=== PATIENT | female | born 1970 | race Two or more races ===

== ENCOUNTER 2020-03-07 11:30 | Emergency (ER) | payer BC, MEDICARE, MEDICAID, SELFPAY ==
[2020-03-07 12:01] VITALS: BP 114/81; PULSE 71; RESP 15; TEMP 36.8; O2SAT 98; BMI 41.3
--- NOTE | 2020-03-07 12:11 | ECG_ITS ---
Test Reason : CP Blood Pressure : / mmHG Vent. Rate : 061 BPM Atrial Rate : 061 BPM P-R Int : 112 ms QRS Dur : 084 ms QT Int : 392 ms P-R-T Axes : 015 008 009 degrees QTc Int : 394 ms Normal sinus rhythm Minimal voltage criteria for LVH, may be normal variant Borderline ECG No previous ECGs available Referred By: Chiquita Delarosa Electronically Signed By:ERIN CERVANTES
--- NOTE | 2020-03-07 12:23 | XR_ITS ---
EXAMINATION: XR CHEST CLINICAL INFORMATION: Chest pain. COMPARISON: Chest done on 10/04/2013. TECHNIQUE: 2 views of the chest were obtained. FINDINGS: No significant abnormality is noted involving the heart, lungs, mediastinum, bony thorax or soft tissues. XR/XR chest 2V IMPRESSION: Unremarkable examination.
--- NOTE | 2020-03-07 12:32 | ED.CHESTPAIN ---
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 The patient although she was driving and started to feel some chest discomfort which was associated with shortness of breath and anxiety. She has had constant pain since. No other additional symptoms. She tells me she has been compliant with her coumadin. No leg swelling or pain. No cough, fevers, chills, body aches or recent travel. MD complaint: chest pain Onset (ago): hour(s) Timing of current episode: constant Onset: other (While driving) Pain location: right chest Pain radiation: right arm Severity: mild Quality: aching Relieving factors: nothing Exacerbating factors: nothing Associated symptoms: dyspnea Treatment prior to arrival: none Related Data Allergies Allergy/AdvReac Type Severity Reaction Status Date / Time aspirin [ASA] Allergy Severe SWELLING Unverified 10/31/19 15:21 oxycodone [OXYCODONE] Allergy Unknown SWELLING Unverified 10/31/19 15:21 shellfish derived Allergy Unknown SWELLING Unverified 10/31/19 15:21 [SHELLFISH DERIVED] Review of Systems Review of Systems: Yes all other systems are reviewed and are negative Constitutional: Constitutional: Reports no additional constitutional complaints, Denies body ache(s), Denies chills, Denies fever(s), Denies headache(s) and Denies weakness Eyes: Eyes: Reports no additional eye complaints and Denies change in vision ENT: Reports system reviewed and no additional complaints, except as documented, Denies dizziness, Denies headache(s), Denies nasal congestion, Denies nasal discharge and Denies neck pain Cardiovascular: Cardiovascular: Reports no additional cardiovascular complaints, Reports chest pain, Denies leg edema and Reports dyspnea Respiratory: Respiratory: Reports no additional respiratory complaints, Denies cough and Reports dyspnea Gastrointestinal: Gastrointestinal: Reports no additional gastrointestinal complaints, Denies abdominal pain, Denies diarrhea, Denies nausea and Denies vomiting Genitourinary: Genitourinary: Reports no additional female genitourinary complaints and Denies urinary incontinence Musculoskeletal: Musculoskeletal: Reports no additional musculoskeletal complaints, Denies back pain, Denies arthralgias, Denies joint swelling, Denies neck pain, Denies numbness and Denies tingling Integumentary/Breasts: Skin/Breast: Reports system reviewed and no additional complaints, except as docu and Denies rash Neurologic: Reports system reviewed and no additional complaints, except as documented, Denies Abnormal speech present, Denies dizziness, Denies headache(s), Denies numbness, Denies tingling and Denies weakness Psychiatric: Psychiatric: Reports anxiety [facility] Past Medical History Attestation statement: The following information was validated with the patient. Source: old records reviewed and nursing notes reviewed Medical History (Updated 03/07/20 @ 17:52 by Chiquita Delarosa NP) Anemia Asthma DVT (deep vein thrombosis) in H. pylori infection Hypertension Migraines Pulmonary embolism Social History Social History Alcohol intake: never Smoking Status: Never smoker Use of substances other than those prescribed or required for medical reasons: No Advance Directives: No Advance Directives Information Provided: No Physical Exam Vital Signs: Vital Signs: Last Vital Signs Temp 98.2 F 03/07/20 16:06 Pulse 59 03/07/20 16:06 Resp 20 03/07/20 16:06 BP 112/68 03/07/20 16:06 Pulse Ox 100 03/07/20 16:06 Body Mass Index 41.3 Const: General: cooperative, healthy appearing, comfortable and no acute distress Orientation/consciousness: patient oriented x3 Limitations: no limitations HENMT: Head: Yes normal to inspection Ears: hearing grossly normal bilaterally General nose exam: Normal external nose present Face and sinus: Yes normal facial exam Mouth: Normal oral and palatal mucosa present Throat: Yes posterior oropharynx normal Eyes: General: appearance normal, both eyes and all related structures Pupils: Equal, round and reactive pupils present Neck: Neck: Yes normal visual inspection Chest: Other: Right chest is tender to palpate. Chest palpation & inspection: normal inspection of the chest Resp: Effort & Inspection: normal respiratory effort Auscultation: clear to auscultation bilaterally Cardio: Rate: regular rate Rhythm: regular rhythm Peripheral pulses: Peripheral pulses 2+ throughout GI: Inspection: Yes normal to inspection Palpation (GI): Soft to palpation and nontender Auscultation: normal bowel sounds Back/Spine/Pelvis: Thoracic/Lumbar Spine: thoracic and lumbar spine normal to inspection Skin: General skin exam: no rashes or lesions noted Neuro: General: patient oriented x3, no focal motor deficits and normal sensation to monofilament Cranial nerves: Yes Equal, round and reactive pupils present Cognition (Neuro): normal cognition Speech: No Abnormal speech present Gait exam (Neuro): Normal gait present Motor exam (neuro): 5/5 motor strength present throughout Extrem: General: Yes normal to inspection, Yes no pedal edema and Yes no calf tenderness Course Course Course Narrative: 49-year-old female here with right-sided chest pain since yesterday which occurred at rest and has been constant and was associated initially with shortness of breath and anxiety. Now only having chest pain which radiates down the right arm. Chest is tender to palpate and worsened with movement. Will need chest x-ray, EKG, labs. 1730-labs including troponin are negative. EKG shows no ischemic changes. CTA is negative for PE. The pain is improved on discharge. Likely chest wall strain versus anxiety. Reviewed worrisome signs and symptoms with the patient and when to return to the emergency department. Comfortable discharge home. MDM - Chest Pain MDM Narrative Medical decision making narrative: ACS, chest wall strain, pneumonia, PE Less likely ACS with symptoms greater than 24 hours with a negative troponin and EKG which shows no ischemic changes. Less likely PE with negative CTA. Loss of pneumonia with negative chest x-ray Medical Records Data Attestation: I reviewed the patient's medical records. Lab Data Attestation: I reviewed the patient's lab results. Result diagrams: 03/07/20 12:48 03/07/20 15:38 Labs: Lab Results 03/07/20 03/07/20 03/07/20 Range/Units 12:48 12:48 12:48 WBC 6.0 (4.8-10.8) X10*3/uL RBC 4.55 (4.20-5.50) X10*6/uL Hgb 12.1 (12.0-16.0) g/dl Hct 39.9 (37-47) % MCV 87.7 (80-98) fL MCH 26.6 L (27.0-33.0) pg MCHC 30.3 L (31.0-35.0) g/dl RDW 13.8 (11.0-16.0) % Plt Count 256 (160-400) X10*3/uL MPV 10.2 (9.4-12.3) fL Immature Gran % (Auto) 0.3 (0.0-0.4) % Neut % (Auto) 60.2 (45-73) % Lymph % (Auto) 28.9 (20-40) % Wise % (Auto) 8.0 (2-11) % Eos % (Auto) 2.3 (0-4) % Baso % (Auto) 0.3 (0-2) % Lymph # (Auto) 1.7 (1.2-4.9) X10*3/uL Wise # (Auto) 0.5 (0.1-1.2) X10*3/uL Eos # (Auto) 0.1 (0.0-0.4) X10*3/uL Baso # (Auto) 0.0 (0.0-0.2) X10*3/uL Abs Immat Gran (auto) 0.02 (0.00-0.03) X10*3/uL Absolute Neuts (auto) 3.6 (2.0-8.3) X10*3/uL Absolute Nucleated RBC 0.000 (0.0-0.012) X10*3/uL Nucleated RBC % (auto) 0.0 (0.0-0.2) /100WBC PT 23.5 H (10.8-13.0) SEC INR 2.0 H (0.9-1.1) Sodium (135-145) mmol/L Potassium (3.3-5.1) mmol/l Chloride (96-108) mmol/L Carbon Dioxide (22-29) mmol/L Anion Gap (12-20) BUN (9-16) mg/dL Creatinine (0.5-1.4) mg/dL Estim Creat Clear Calc Estimated GFR Random Glucose (60-115) mg/dL Calcium (8.4-10.2) mg/dL Magnesium (1.6-2.6) mg/dL Total Bilirubin (0.0-1.0) mg/dL Direct Bilirubin (0.0-0.5) mg/dL AST (5-31) U/L ALT (0-31) U/L Alkaline Phosphatase (39-117) U/L Troponin I High Sens < 3.5 (<3.5-17.0) ng/L Total Protein (6.5-8.0) g/dL Albumin (3.5-5.0) g/dL 03/07/20 Range/Units 15:38 WBC (4.8-10.8) X10*3/uL RBC (4.20-5.50) X10*6/uL Hgb (12.0-16.0) g/dl Hct (37-47) % MCV (80-98) fL MCH (27.0-33.0) pg MCHC (31.0-35.0) g/dl RDW (11.0-16.0) % Plt Count (160-400) X10*3/uL MPV (9.4-12.3) fL Immature Gran % (Auto) (0.0-0.4) % Neut % (Auto) (45-73) % Lymph % (Auto) (20-40) % Wise % (Auto) (2-11) % Eos % (Auto) (0-4) % Baso % (Auto) (0-2) % Lymph # (Auto) (1.2-4.9) X10*3/uL Wise # (Auto) (0.1-1.2) X10*3/uL Eos # (Auto) (0.0-0.4) X10*3/uL Baso # (Auto) (0.0-0.2) X10*3/uL Abs Immat Gran (auto) (0.00-0.03) X10*3/uL Absolute Neuts (auto) (2.0-8.3) X10*3/uL Absolute Nucleated RBC (0.0-0.012) X10*3/uL Nucleated RBC % (auto) (0.0-0.2) /100WBC PT (10.8-13.0) SEC INR (0.9-1.1) Sodium 141 (135-145) mmol/L Potassium 4.7 (3.3-5.1) mmol/l Chloride 108 (96-108) mmol/L Carbon Dioxide 25 (22-29) mmol/L Anion Gap 13 (12-20) BUN 14 (9-16) mg/dL Creatinine 0.60 (0.5-1.4) mg/dL Estim Creat Clear Calc 113.0 Estimated GFR > 60 Random Glucose 77 (60-115) mg/dL Calcium 8.6 (8.4-10.2) mg/dL Magnesium 2.1 (1.6-2.6) mg/dL Total Bilirubin 0.8 (0.0-1.0) mg/dL Direct Bilirubin 0.2 (0.0-0.5) mg/dL AST 24 (5-31) U/L ALT 20 (0-31) U/L Alkaline Phosphatase 123 H (39-117) U/L Troponin I High Sens (<3.5-17.0) ng/L Total Protein 7.0 (6.5-8.0) g/dL Albumin 3.8 (3.5-5.0) g/dL Imaging Data Chest x-ray: Attestation: I personally reviewed and interpreted this imaging study as follows: Radiologist's impression: EXAMINATION: XR CHEST CLINICAL INFORMATION: Chest pain. COMPARISON: Chest done on 10/04/2013. TECHNIQUE: 2 views of the chest were obtained. FINDINGS: No significant abnormality is noted involving the heart, lungs, mediastinum, bony thorax or soft tissues. XR/XR chest 2V IMPRESSION: Unremarkable examination. ECG Data ECG #1: Attestation: I personally reviewed and interpreted this ECG as follows: ECG interpretation date: 03/07/20 ECG interpretation time: 12:03 Interpretation: Normal sinus rhythm with a rate of 61, normal DE, normal QRS, normal QT, normal ST segment Discharge Plan Discharge Clinical Impression: Atypical chest pain Patient Disposition: Home, Self-Care Instructions: Chest Wall Pain (ED) Additional Instructions: Your CT scan showed no evidence of a blood clot in your lungs. Your EKG and blood work looks unremarkable. You should follow-up with your primary care doctor in 2-3 days Referrals: Blanca Isaacs MD [Primary Care Provider] - 2 days Interventions: ED Discharge Assessment Last Done: 03/07/20 18:02 Discharge Date/Time: 03/07/20 18:32 Print Language: Vietnamese
[2020-03-07 12:53] LABS: MANUAL DIFF FLAG NO
[2020-03-07 12:56] LABS: Basophils Percent Auto 0.3 % (0-2); Eosinophils Absolute Auto 0.1 X10*3/uL (0.0-0.4); Eosinophils Percent Auto 2.3 % (0-4); Hematocrit 39.9 % (37-47); Hemoglobin 12.1 g/dl (12.0-16.0); Imm Gran Abs Auto 0.02 X10*3/uL (0.00-0.03); Imm Gran Pct Auto 0.3 % (0.0-0.4); Lymphocytes Absolute Auto 1.7 X10*3/uL (1.2-4.9); Lymphocytes Percent Auto 28.9 % (20-40); Mean Corpuscular HGB Conc 30.3 g/dl (31.0-35.0); Mean Corpuscular Hemoglobin 26.6 pg (27.0-33.0); Mean Corpuscular Volume 87.7 fL (80-98); Mean Platelet Volume 10.2 fL (9.4-12.3); Monocytes Absolute Auto 0.5 X10*3/uL (0.1-1.2); Neutrophils Absolute Auto 3.6 X10*3/uL (2.0-8.3); Neutrophils Percent Auto 60.2 % (45-73); Platelet Count 256 X10*3/uL (160-400); Red Blood Count 4.55 X10*6/uL (4.20-5.50); Red Cell Distribution Width 13.8 % (11.0-16.0)
[2020-03-07 13:02] LABS: Prothrombin Time 23.5 SEC (10.8-13.0)
[2020-03-07 13:20] LABS: Troponin-I High Sensitivity < 3.5 ng/L (<3.5-17.0)
--- NOTE | 2020-03-07 13:35 | CT_ITS ---
EXAMINATION: CT ANGIOGRAM OF THE CHEST WITH AND WITHOUT CONTRAST (CT PULMONARY ANGIOGRAM FOR PE) CLINICAL INFORMATION: Reason for Exam SOB/CP, h/o PE, r/o PE COMPARISON: CT of the chest with contrast 10/04/2013 TECHNIQUE: Prior to contrast administration, noncontrast localization images were obtained. Subsequently, multidetector volumetric imaging was performed from the thoracic inlet to below the diaphragms following the administration of 85 mL Omnipaque 350 intravenous contrast. No contrast reaction reported Sagittal, coronal, and MIP oblique sagittal reformatted images were obtained on the CT workstation, uploaded to PACS, and reviewed. This CT examination was performed using dose optimization techniques as appropriate, variously including the following: *Automated exposure control *Adjustment of mA and/or kV according to patient size (this includes techniques or standardized protocols for targeted exams where dose is matched to indication/reason for exam; i.e. extremities or head) *Use of iterative reconstruction technique Total exam dose-length product 420 mGy-cm FINDINGS: QUALITY OF STUDY/CONTRAST BOLUS: Satisfactory. PULMONARY ARTERIES: No central or segmental pulmonary emboli. THORACIC AORTA: No aneurysm or dissection. LUNG: No focal consolidation, nodules or masses. Some areas of air-trapping in the bilateral upper lobes, left greater than right. PLEURA: No pleural effusion or pneumothorax. MEDIASTINUM: Normal heart size. No pericardial effusion. No hilar or mediastinal lymphadenopathy. No evidence of septal bowing or right heart strain. CHEST WALL/AXILLA: No axillary or internal mammary lymphadenopathy. OSSEOUS STRUCTURES: No acute or suspicious osseous abnormality. UPPER ABDOMEN: Postsurgical changes from cholecystectomy. No reflux of contrast into the hepatic veins to suggest elevated right heart pressures. CT/CT angio chest PE protocol IMPRESSION: 1. No evidence of pulmonary embolism. 2. Nonspecific areas of air-trapping in the bilateral upper lobes, left greater than right, that may represent small airways disease. No focal consolidation. No suspicious nodule. VTE: negative
[2020-03-07] MEDS: Acetaminophen 325 MG TABLET 975 MG PO (13:58)
[2020-03-07] MEDS: Cyclobenzaprine HCl 10 MG TABLET PO (13:58)
[2020-03-07 15:47] VITALS: BP 138/81; PULSE 57; RESP 16; O2SAT 100
[2020-03-07 16:06] VITALS: BP 112/68; PULSE 59; RESP 20; TEMP 36.8; O2SAT 100
[2020-03-07 16:17] LABS: Alanine Aminotransferase 20 U/L (0-31); Albumin Level 3.8 g/dL (3.5-5.0); Alkaline Phosphatase 123 U/L (39-117); Anion Gap 13 (12-20); Aspartate Amino Transferase 24 U/L (5-31); Bilirubin Direct 0.2 mg/dL (0.0-0.5); Bilirubin Total 0.8 mg/dL (0.0-1.0); Blood Urea Nitrogen 14 mg/dL (9-16); Calcium 8.6 mg/dL (8.4-10.2); Carbon Dioxide 25 mmol/L (22-29); Chloride 108 mmol/L (96-108); Estimated Glomerular Filt Rate > 60; Glucose Random 77 mg/dL (60-115); Magnesium 2.1 mg/dL (1.6-2.6); Potassium 4.7 mmol/l (3.3-5.1); Sodium 141 mmol/L (135-145)
[2020-03-07] MEDS: iohexoL 350 MG/ML 100 ML INFUS..BTL IV (16:44)
== END 2020-03-07 18:32 | disposition home or self-care (01) ==
PROVIDERS: Nurse Practitioner Family; Emergency Provider Internal Medicine; PCP Internal Medicine
DX: R07.89 Other chest pain (principal); I10 Essential (primary) hypertension; Z86.718 Personal history of other venous thrombosis and embolism; Z79.01 Long term (current) use of anticoagulants; Z79.899 Other long term (current) drug therapy
CPT/HCPCS: 36415; 71046; 71275; 80048; 80076; 83735; 84484; 85025; 85610; 93005; 99284; Q9967

== ENCOUNTER → 2022-07-05 10:16 | Outpatient (BNVA) | payer BC, MEDICARE, MEDICAID, SELFPAY | PROVIDERS: PCP Internal Medicine; Visit Provider Hospitalist | DX: J45.909 Unspecified asthma, uncomplicated (principal); G47.33 Obstructive sleep apnea (adult) (pediatric); T78.40XA Allergy, unspecified, initial encounter; Z86.711 Personal history of pulmonary embolism | CPT/HCPCS: 99202 ==

== ENCOUNTER → 2022-08-29 09:51 | Outpatient (REF) | payer MEDICARE, MEDICAID, SELFPAY | LOC: HO.SL 09:51 | PROVIDERS: PCP Internal Medicine; Visit Provider Hospitalist | DX: G47.33 Obstructive sleep apnea (adult) (pediatric) (principal) | CPT/HCPCS: 95806 ==

== ENCOUNTER → 2022-08-29 10:48 | Outpatient (BNV) | payer MEDICAID, SELFPAY | PROVIDERS: PCP Internal Medicine; Visit Provider Internal Medicine | DX: R06.83 Snoring (principal) | CPT/HCPCS: 95806 ==

== ENCOUNTER 2022-09-05 09:43 | Outpatient (REF) | payer MEDICARE, MEDICAID, SELFPAY ==
--- NOTE | 2022-09-05 11:25 | PFT_ITS ---
Forced vital capacity 74%, FEV1 75%. FEV1 over FVC ratio is 81. FEF 25-75 61% and MVV is 60%. Post bronchodilator therapy there is improvement in FEF 25-75 to normal levels. Total lung capacity 83%. Residual volume 79%. Diffusion capacity 99%. CONCLUSION: Possible mild obstructive airway disorder involving small airways, which improves after bronchodilator therapy. These findings suggest mild bronchial asthma. Clinical correlation is recommended. MD AFSHAN Rae/JOSEPH / [id number]
== END 2022-09-05 09:44 | disposition home or self-care (01) ==
LOC: HO.RESP 09:43
PROVIDERS: PCP Internal Medicine; Visit Provider Hospitalist
DX: J45.909 Unspecified asthma, uncomplicated (principal)
CPT/HCPCS: 94010; 94727; 94729

== ENCOUNTER → 2022-09-05 11:25 | Outpatient (BNV) | payer MEDICARE, BC, MEDICAID, SELFPAY | PROVIDERS: PCP Internal Medicine; Visit Provider Internal Medicine | DX: J45.909 Unspecified asthma, uncomplicated (principal) | CPT/HCPCS: 94060; 94727; 94729 ==

== ENCOUNTER 2022-09-18 14:31 | Emergency (ER) | payer MEDICARE, MEDICAID, SELFPAY ==
--- NOTE | ~2022-09-18 | XR_ITS ---
EXAMINATION: XR KNEE, LEFT CLINICAL INFORMATION: Exam pain. COMPARISON: None available. TECHNIQUE: Four views of the left knee. FINDINGS: Mild medial femoral-tibial and patellofemoral degenerative joint changes are seen. There is no acute fracture or dislocation. There is no joint effusion. Coarse calcifications are seen anteromedially in the adjacent soft tissues. XR/XR knee LT 2V IMPRESSION: 1. Chronic appearing degenerative/posttraumatic calcifications anterolaterally in the soft tissues adjacent to the right knee without acute underlying osseous abnormality. 2. Mild osteoporosis arthritis.
--- NOTE | ~2022-09-18 | XR_ITS ---
EXAMINATION: XR CHEST CLINICAL INFORMATION: Chest pain. COMPARISON: 03/07/2020 chest radiographs. TECHNIQUE: 2 views of the chest were obtained. FINDINGS: No significant abnormality is noted involving the heart, lungs, mediastinum, bony thorax or soft tissues. XR/XR chest 2V IMPRESSION: No acute cardiopulmonary process.
[2022-09-18 14:53] VITALS: BP 113/74; PULSE 91; RESP 18; TEMP 36.8; O2SAT 98; BMI 40.4
--- NOTE | 2022-09-18 14:58 | ED_ITS ---
HPI - General Adult General Chief complaint: General Medical Stated complaint: L knee cramping? Time Seen by Provider: 09/18/22 21:05 Source: patient Mode of arrival: ambulatory History of Present Illness HPI narrative: 52-year-old female with left knee pain and she reports that there is a lot movement within the knee when walking then also describes left arm numbness and finger pain that radiates into the right side of her chest for 3 days. She denies any associated recent travel, fever, chills, nausea, vomiting, trauma. Related Data Home Medications Medication Instructions Recorded Confirmed acetaminophen 500 mg tablet 500 mg PO TID PRN fever 07/05/22 albuterol sulfate 2.5 mg/3 mL mg inhalation 07/05/22 (0.083 %) solution for nebulization albuterol sulfate 90 mcg/actuation 0 mcg inhalation 07/05/22 aerosol inhaler ascorbic acid (vitamin C) 500 mg 500 mg PO BID 07/05/22 tablet (Vitamin C) cetirizine 10 mg tablet 10 mg PO QAM 07/05/22 diphenhydramine HCl 25 mg tablet 25 mg PO BID PRN itch 07/05/22 (Banophen) epinephrine 0.3 mg/0.3 mL 0.3 ml IM ONCE PRN 07/05/22 injection, auto-injector ferrous sulfate 325 mg (65 mg 325 mg PO BID 07/05/22 iron) tablet fluticasone propionate 110 2 puff inhalation BID 07/05/22 mcg/actuation HFA aerosol inhaler (Flovent HFA) fluticasone propionate 50 2 spray intranasal DAILY 07/05/22 mcg/actuation nasal spray,suspension gabapentin 300 mg capsule 600 mg PO BID 07/05/22 hydrochlorothiazide 12.5 mg capsule 12.5 mg PO QAM 07/05/22 hydroxyzine HCl 25 mg tablet 25 mg PO BEDTIME PRN itch 07/05/22 lidocaine HCl 4 % topical cream g topical 07/05/22 (Pain Relief (lidocaine)) loratadine 10 mg tablet 10 mg PO DAILY 07/05/22 meclizine 12.5 mg tablet 12.5 mg PO TID PRN dizziness 07/05/22 montelukast 10 mg tablet 10 mg PO BEDTIME 07/05/22 nebulizers 07/05/22 omeprazole 20 mg capsule,delayed 20 mg PO BID 07/05/22 release sennosides 8.6 mg tablet (senna) 17.2 mg PO BID PRN constipation 07/05/22 topiramate 100 mg tablet 100 mg PO BID 07/05/22 warfarin 5 mg tablet 7.5 - 10 mg PO DAILY 07/05/22 Previous Rx's Medication Instructions Recorded budesonide-formoterol HFA 160 2 puff inhalation BID 30 days 07/05/22 mcg-4.5 mcg/actuation aerosol #10.2 grams inhaler (Symbicort) Allergies Allergy/AdvReac Type Severity Reaction Status Date / Time aspirin [ASA] Allergy Severe SWELLING Verified 09/18/22 21:53 oxycodone [OXYCODONE] Allergy Unknown SWELLING Verified 09/18/22 21:53 shellfish derived Allergy Unknown SWELLING Verified 09/18/22 21:53 [SHELLFISH DERIVED] Review of Systems Review of Systems: Pertinent positives and negatives as stated in HPI [facility] Past Medical History Source: nursing notes reviewed Medical History Allergies Anemia Asthma DVT (deep vein thrombosis) in H. pylori infection History of pulmonary embolism Hypertension Migraines JUNE (obstructive sleep apnea) Pulmonary embolism Social History Social History Alcohol intake: unknown Patient Tobacco Use Status: Never used Tobacco Smoked in Last 30 Days: No Use of substances other than those prescribed or required for medical reasons: No Advance Directives: No Advance Directives Information Provided: No Physical Exam ED Vital Signs: Vital Signs - 24 hr 09/18/22 14:53 Temperature 98.3 F Pulse Rate 91 Respiratory Rate 18 Blood Pressure 113/74 Pulse Oximetry 98 Oxygen Delivery Method Room Air BMI result Body Mass Index 40.4 VITAL SIGNS: Reviewed. GENERAL: Elevated BMI, Well developed, well nourished, in no acute distress. HEAD: Normocephalic/atraumatic EYES: PERRLA, EOMI EARS: Ext canals without abnormality NOSE: Nares patent bilateral OROPHARYNX: no oral lesions noted, posterior pharynx clear NECK: Supple, no adenopathy LUNGS: Normal breath sounds. No adventitious sounds or accessory muscle use. SpO2<98> CARDIOVASCULAR: Regular rate and rhythm without noted murmurs ABDOMEN: Soft, non-tender, non-distended with bowel sounds. MUSCULOSKELETAL: No tenderness, deformities, or effusions noted on gross inspection. EXTREMITIES: No cyanosis, clubbing or edema; LEFT KNEE: No erythema/induration and no obvious abnormalities when compared to the right knee, there is crepitus on flexion and extension at the knee, no pain on palpation and neurovascular is intact distally. I do not appreciate effusions. SKIN: Inspection of the skin reveals no rashes NEUROLOGIC: Alert and oriented x 4. Strength and sensation to light touch were grossly intact x 4. Course Course Course Narrative: RME performed by Sallie Barajas PA-C. Patient is a 52 year old assigned female at presenting to the emergency department with right sided chest pain radiating into her neck and left knee pain. Labs, imaging, and EKG ordered. Patient placed back in the waiting room pending room availability and results. Medical Decision Making Medical Decision Making MDM Narrative: 52-year-old female with history and clinical presentation, DDX: Knee arthritis, possible infection involving left upper extremity though there is no erythema/induration in patient has full range of motion of that upper extremity with good neurovascular intact. Reviewed all investigations and there is no evidence of infection or anemia, no leukocytosis/left shift or anemia/thrombocytopenia. Chemistry studies are grossly within normal limits with chronically stable elevated alkaline phosphatase, troponin is undetectable and given the fact that patient's chest pain is been for 3 days strongly unlikely that this is ACS in etiology. In addition, patient has electrolyte and liver enzyme is within normal limits and there is no MARISELA. On chest x-ray there is no pneumonia and otherwise my interpretation is in agreement with radiology's impression. No acute fracture or dislocation/effusion in the left knee and otherwise my interpretation is in agreement with radiology's impression. There are no acute EKG changes and all results and findings were discussed with patient at bedside and she was strongly encouraged to continue follow-up with her primary care doctor in potentially pursue further physical therapy and/or MRI as indicated. INR is within normal limits. Differential Diagnosis Differential Diagnoses: The differential diagnosis associated with the presentation includes Please see the discussion above Admission/Observation Consideration of admission/observation: Escalation of care including admission/observation considered Please see the discussion as above Lab Data [facility] Lab Attestation statement: I reviewed the patient's lab results. Please see the discussion above 09/18/22 15:24 09/18/22 15:24 Labs: Lab Results 09/18/22 09/18/22 09/18/22 Range/Units 15:24 15:24 15:24 WBC 6.3 (4.8-10.8) X10*3/uL RBC 4.37 (4.20-5.50) X10*6/uL Hgb 12.2 (12.0-16.0) g/dl Hct 38.9 (37.0-47.0) % MCV 89.0 (80.0-98.0) fL MCH 27.9 (27.0-33.0) pg MCHC 31.4 (31.0-35.0) g/dl RDW 13.3 (11.0-16.0) % Plt Count 256 (160-400) X10*3/uL MPV 10.3 (9.4-12.3) fL Immature Gran % (Auto) 0.2 (0.0-0.4) % Neut % (Auto) 60.0 (45-73) % Lymph % (Auto) 27.0 (20-40) % [place] % (Auto) 9.3 (2-11) % Eos % (Auto) 3.0 (0-4) % Baso % (Auto) 0.5 (0-2) % Lymph # (Auto) 1.7 (1.2-4.9) X10*3/uL [place] # (Auto) 0.6 (0.1-1.2) X10*3/uL Eos # (Auto) 0.2 (0.0-0.4) X10*3/uL Baso # (Auto) 0.0 (0.0-0.2) X10*3/uL Abs Immat Gran (auto) 0.01 (0.00-0.03) X10*3/uL Absolute Neuts (auto) 3.8 (2.0-8.3) x10*3/uL Absolute Nucleated RBC 0.000 (0.0-0.012) X10*3/uL Nucleated RBC % (auto) 0.0 (0.0-0.2) /100WBC Smear Tech's Comments VERIFIED Sodium 142 (135-145) mmol/L Potassium 4.1 (3.3-5.1) mmol/L Chloride 111 H (96-108) mmol/L Carbon Dioxide 22 (22-29) mmol/L Anion Gap 13 (12-20) BUN 16 (9-16) mg/dL Creatinine 0.71 (0.5-1.4) mg/dL Estim Creat Clear Calc 91.0 Estimated GFR > 60 Random Glucose 81 (60-115) mg/dL Calcium 9.0 (8.4-10.2) mg/dL Magnesium 2.2 (1.6-2.6) mg/dL Total Bilirubin 0.4 (0.0-1.0) mg/dL AST 26 (5-31) U/L ALT 24 (0-31) U/L Alkaline Phosphatase 121 H (39-117) U/L Troponin I High Sens < 2.7 (<3.5-17.0) ng/L Total Protein 7.7 (6.5-8.0) g/dL Albumin 3.9 (3.5-5.0) g/dL Independent Interpretation I performed an independent interpretation of an: EKG Interpretation: Normal sinus rhythm, HR-76, no STEMI, WA/QRS/QTC is within normal limits. Radiology Impression Discussion of test interpretation with radiology: I have reviewed the radiologist's reading. Radiologist Impression: Please see the discussion above External Record Review External record reviewed: Outpatient record and Prior outpatient labs Discharge Plan Discharge Clinical Impression: Chronic anticoagulation, Knee pain, left Patient Disposition: Home, Self-Care Instructions: Knee Pain (ED), Arthralgia (ED), Blood Thinners (ED) Additional Instructions: 1. Resume all home medications as prescribed. 2. Please follow-up with primary care provider Monday. Return to the ER for any worsening symptoms. Prescriptions: No Action loratadine 10 mg tablet 10 mg PO DAILY albuterol sulfate 90 mcg/actuation HFA aerosol inhaler 0 mcg inhalation hydroxyzine HCl 25 mg tablet 25 mg PO BEDTIME PRN (Reason: itch) montelukast 10 mg tablet 10 mg PO BEDTIME gabapentin 300 mg capsule 600 mg PO BID hydrochlorothiazide 12.5 mg capsule 12.5 mg PO QAM ferrous sulfate 325 mg (65 mg iron) tablet 325 mg PO BID ascorbic acid (vitamin C) [Vitamin C] 500 mg tablet 500 mg PO BID acetaminophen 500 mg tablet 500 mg PO TID PRN (Reason: fever) meclizine 12.5 mg tablet 12.5 mg PO TID PRN (Reason: dizziness) warfarin 5 mg tablet 7.5 - 10 mg PO DAILY albuterol sulfate 2.5 mg /3 mL (0.083 %) solution for nebulization inhalation topiramate 100 mg tablet 100 mg PO BID fluticasone propionate 50 mcg/actuation spray,suspension 2 spray intranasal DAILY (DME) nebulizers Misc See Rx Instructions .ROUTE Rx Instructions: As directed epinephrine 0.3 mg/0.3 mL auto-injector 0.3 ml IM ONCE PRN fluticasone propionate [Flovent HFA] 110 mcg/actuation HFA aerosol inhaler 2 puff inhalation BID diphenhydramine HCl [Banophen] 25 mg tablet 25 mg PO BID PRN (Reason: itch) omeprazole 20 mg capsule,delayed release(DR/EC) 20 mg PO BID cetirizine 10 mg tablet 10 mg PO QAM lidocaine HCl [Pain Relief (lidocaine)] 4 % cream topical sennosides [senna] 8.6 mg tablet 17.2 mg PO BID PRN (Reason: constipation) budesonide-formoterol [Symbicort] 160-4.5 mcg/actuation HFA aerosol inhaler 2 puff inhalation BID 30 Days Qty: 10.2 11RF Referrals: Manuela Montero MD [Primary Care Provider] -
--- NOTE | 2022-09-18 14:59 | ECG_ITS ---
Test Reason : CHEST PAIN Blood Pressure : / mmHG Vent. Rate : 076 BPM Atrial Rate : 076 BPM P-R Int : 130 ms QRS Dur : 076 ms QT Int : 372 ms P-R-T Axes : 017 007 015 degrees QTc Int : 418 ms Normal sinus rhythm Minimal voltage criteria for LVH, may be normal variant ( R in aVL ) Borderline ECG When compared with ECG of 07-MAR-2020 12:03, No significant change was found Referred By: Sallie Barajas Electronically Signed By:Garcia Burnette
[2022-09-18 15:40] LABS: Basophils Percent Auto 0.5 % (0-2); Eosinophils Absolute Auto 0.2 X10*3/uL (0.0-0.4); Hematocrit 38.9 % (37.0-47.0); Hemoglobin 12.2 g/dl (12.0-16.0); Imm Gran Abs Auto 0.01 X10*3/uL (0.00-0.03); Imm Gran Pct Auto 0.2 % (0.0-0.4); Lymphocytes Absolute Auto 1.7 X10*3/uL (1.2-4.9); MANUAL DIFF FLAG SCAN; Mean Corpuscular HGB Conc 31.4 g/dl (31.0-35.0); Mean Corpuscular Hemoglobin 27.9 pg (27.0-33.0); Mean Platelet Volume 10.3 fL (9.4-12.3); Monocytes Absolute Auto 0.6 X10*3/uL (0.1-1.2); Monocytes Percent Auto 9.3 % (2-11); Neutrophils Absolute Auto 3.8 x10*3/uL (2.0-8.3); Platelet Count 256 X10*3/uL (160-400); Red Blood Count 4.37 X10*6/uL (4.20-5.50); Red Cell Distribution Width 13.3 % (11.0-16.0); SCAN SMEAR FLAG 1; White Blood Count 6.3 X10*3/uL (4.8-10.8)
[2022-09-18 16:01] LABS: Alanine Aminotransferase 24 U/L (0-31); Albumin Level 3.9 g/dL (3.5-5.0); Alkaline Phosphatase 121 U/L (39-117); Anion Gap 13 (12-20); Aspartate Amino Transferase 26 U/L (5-31); Bilirubin Total 0.4 mg/dL (0.0-1.0); Blood Urea Nitrogen 16 mg/dL (9-16); Carbon Dioxide 22 mmol/L (22-29); Chloride 111 mmol/L (96-108); Estimated Glomerular Filt Rate > 60; Glucose Random 81 mg/dL (60-115); Magnesium 2.2 mg/dL (1.6-2.6); Potassium 4.1 mmol/L (3.3-5.1); Sodium 142 mmol/L (135-145); Total Protein 7.7 g/dL (6.5-8.0)
[2022-09-18 16:12] LABS: SLIDE REVIEW VERIFIED
[2022-09-18 16:14] LABS: Troponin-I High Sensitivity < 2.7 ng/L (<3.5-17.0)
== END 2022-09-18 22:57 | disposition home or self-care (01) ==
PROVIDERS: Physician Assistant Medical; Emergency Provider Student in an Organized Health Care Education/Training Program; PCP Internal Medicine
DX: D68.318 Other hemorrhagic disorder due to intrinsic circulating anticoagulants, antibodies, or inhibitors (principal); M25.562 Pain in left knee; R07.89 Other chest pain; Z79.899 Other long term (current) drug therapy
CPT/HCPCS: 36415; 71046; 73560; 80053; 83735; 84484; 85025; 93005; 99284

== ENCOUNTER → 2022-09-18 14:59 | Outpatient (BNV) | payer MEDICARE, MEDICAID, SELFPAY | PROVIDERS: Emergency Provider Student in an Organized Health Care Education/Training Program; PCP Internal Medicine; Visit Provider Internal Medicine Cardiovascular Disease | DX: R07.9 Chest pain, unspecified (principal) | CPT/HCPCS: 93010 ==

== ENCOUNTER 2022-09-26 10:01 | Outpatient (AMB) | payer MEDICARE, MEDICAID, SELFPAY ==
[2022-09-26 10:18] VITALS: PULSE 61; O2SAT 100; BMI 40.4
--- NOTE | 2022-09-26 10:18 | MHC.OFFVIS ---
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 Apparently she was in her usual state health until back in 2004 when she developed a pulmonary emboli. At that time the patient also was placed on anticoagulation. Subsequently she was taken off anticoagulation in ended up with a repeat event. Now she is on Coumadin. The patient is tolerating it well. As far as her asthma she is having symptoms at nighttime. Usually unable to fall asleep. Sometimes she is able to use a nebulizer with some improvement. She was referred to Allergy. She was provided Trelegy inhaler which she could not tolerate because the powder. Therefore she went back to her Flovent HFA. The patient still having symptoms at nighttime. Using her rescue inhaler. She did have allergy testing she does have typical environmental allergies when he comes to the grasses and trees. The patient will be working closely with allergy immunolog. Therefore, will see about switching her over to Symbicort hopefully her insurance covers it. And hopefully on she can tolerated better. In the meantime she is going to continue with respiratory therapy. On further questioning she had has had a diagnosis of sleep apnea made multiple years ago. She does have a machine that is older than 10 years which she no longer uses. She does have significant daytime drowsiness with an [place] score of 12/24. The patient has not had a sleep study more than 10 years. Will go ahead and repeat her sleep home sleep study at this time. Also, she did have a CT scan of the chest PE protocol back in 2020 when she presented with shortness of breath. It actually demonstrated air trapping mosaic pattern consistent with diagnosis of asthma. No other abnormalities noted. 09/26/2022 the patient is here for a pulmonary follow-up visit. The patient overall is doing well. She did get a prescription for Symbicort but she had not tolerated. He taste odd in therefore she is that a couple times and stopped it. She did find the Flovent more effective for her. The patient in the meantime was diagnosed with significant eczema. She also was evaluated by dermatology. After no avail the patient was started on Dupixent. Explained to the patient on Dupixent her asthma symptoms have improved dramatically. The patient is aware that the Dupixent now treat both the eczema in the asthma. Please her pulmonary function studies are reassuring. She does have some small airways disease which is consistent with her asthma. Patient right now is able to deescalate back to the Flovent since her breathing is better. She also has a rescue inhaler as needed and does state a her allergy medication. As far as her sleep she is doing better now that there breathing is better. The patient still has some issues with difficulty sleeping but overall doing well. She does have headaches in the morning. Her [place] score still slightly elevated at 8 over 24. Patient did have a home sleep study demonstrating no significant sleep apnea at this time. The patient is happy about that. If the patient continues to be symptomatic or if there is any witnessed apnea or snoring or she continues with persistent headaches we can always consider an in-lab study in the future. At this point will hold off on any additional testing the [facility] Medical History Allergies Anemia Asthma DVT (deep vein thrombosis) in H. pylori infection History of pulmonary embolism Hypertension Migraines JUNE (obstructive sleep apnea) Pulmonary embolism Social History Alcohol intake: unknown Patient Tobacco Use Status: Never used Tobacco Review of Systems Const Reports daytime sleepiness, Reports difficulty sleeping, Reports headache(s) and Reports snoring Eyes Denies change in vision ENT Denies change in voice and Reports headache(s) Card Denies chest pain and Reports dyspnea Resp Reports cough, Reports dyspnea, Reports snoring and Reports wheezing GI Reports no additional complaints and Reports dyspepsia Musc Reports myalgias, Reports arthralgias and Reports stiffness Skin/Breast Denies rash Neuro Reports no additional complaints and Reports headache(s) Endo Denies flushing Marty/Lymph Denies lymphadenopathy Aller/Immun Reports wheezing Physical Exam Vital Signs: Last Vital Signs Pulse 61 09/26/22 10:18 Pulse Ox 100 09/26/22 10:18 Oxygen Delivery Method Room Air 09/26/22 10:18 BMI result Body Mass Index 40.4 Const General: comfortable HEENT Head: Yes normocephalic Neck Neck: Yes supple Chest Chest palpation & inspection: normal inspection of the chest Resp Effort & Inspection: normal respiratory effort Auscultation: no wheezes and diminished lung sounds Cardio Rate: regular rate Rhythm: regular rhythm Heart sounds: S1 normal heart sound present and S2 normal heart sound present GI Palpation (GI): Soft to palpation Skin Rashes: rashes noted Extrem General: No clubbing, No cyanosis and Yes edema Assessment & Plan Assessment & Plan (1) History of pulmonary embolism: Code(s): Z86.711 - Personal history of pulmonary embolism (2) Asthma: Code(s): J45.909 - Unspecified asthma, uncomplicated (3) JUNE (obstructive sleep apnea): Comment: Home PSG with minimal apnea. Code(s): G47.33 - Obstructive sleep apnea (adult) (pediatric) (4) Allergies: Code(s): T78.40XA - Allergy, unspecified, initial encounter Plan restart Flovent stopped Symbicort DIMITRI as needed Continue singulair consider repeating PSG if continue symptomatic continue Dupixent as per Dermatology F/U 1 yr Medications: Changed From fluticasone propionate 110 mcg/actuation (Flovent HFA) 2 puffs inhalation BID To fluticasone propionate 110 mcg/actuation (Flovent HFA) 2 puffs inhalation BID 30 days 12 grams 6RF From albuterol sulfate 90 mcg/actuation inhalation To albuterol sulfate 90 mcg/actuation 2 inhalations inhalation Q6H 30 days PRN 8.5 grams 11RF shortness of breath or wheezing Discontinued budesonide-formoterol 160-4.5 mcg/actuation (Symbicort) Discontinued Reason: Doctor's Order 2 puffs inhalation BID 30 days 10.2 grams 11RF J44.9 - Chronic obstructive pulmonary disease, unspecified Coding Level of Care Code Est Pt Level 4 (19494) Diagnoses History of pulmonary embolism Z86.711 Asthma J45.909 JUNE (obstructive sleep apnea) G47.33 Allergies T78.40XA Time Spent (min) 17
== END 2022-09-26 10:45 | disposition home or self-care (01) ==
PROVIDERS: PCP Internal Medicine; Visit Provider Hospitalist
DX: Z86.711 Personal history of pulmonary embolism (principal); J45.909 Unspecified asthma, uncomplicated; G47.33 Obstructive sleep apnea (adult) (pediatric); T78.40XA Allergy, unspecified, initial encounter
CPT/HCPCS: 99214

== ENCOUNTER → 2022-09-26 10:01 | Outpatient (BNVA) | payer MEDICARE, MEDICAID, SELFPAY | PROVIDERS: PCP Internal Medicine; Visit Provider Hospitalist | DX: J45.909 Unspecified asthma, uncomplicated (principal); L30.9 Dermatitis, unspecified; G47.33 Obstructive sleep apnea (adult) (pediatric); Z86.711 Personal history of pulmonary embolism | CPT/HCPCS: 99212 ==

== ENCOUNTER 2023-05-12 10:46 | Outpatient (AMB) | payer MEDICARE, MEDICAID, SELFPAY ==
[2023-05-12 10:50] VITALS: PULSE 67; O2SAT 96; BMI 40.4
--- NOTE | 2023-05-12 10:50 | A.OFFVIS_ITS ---
Intake Vital Signs 05/12/23 10:50 Height 4 ft 11 in Weight 200 lb BMI 40.4 Pulse 67 Pulse Source Pulse Oximeter Pulse Oximetry (%) 96 Oxygen Delivery Method Room Air Intake Visit Reasons: Worsening Cough Jig Bore Operator Required: No Allergies aspirin [ASA] Allergy (Severe, Verified 05/12/23 10:51) SWELLING oxycodone [OXYCODONE] Allergy (Unknown, Verified 05/12/23 10:51) SWELLING shellfish derived [SHELLFISH DERIVED] Allergy (Unknown, Verified 05/12/23 10:51) SWELLING HPI HPI Comments History of Present Illness Details The patient is a 52-year-old woman with lifelong asthma. Apparently she was in her usual state health until back in 2004 when she developed a pulmonary emboli. At that time the patient also was placed on anticoagulation. Subsequently she was taken off anticoagulation in ended up with a repeat event. Now she is on Coumadin. The patient is tolerating it well. As far as her asthma she is having symptoms at nighttime. Usually unable to fall asleep. Sometimes she is able to use a nebulizer with some improvement. She was referred to Allergy. She was provided Trelegy inhaler which she could not tolerate because the powder. Therefore she went back to her Flovent HFA. The patient still having symptoms at nighttime. Using her rescue inhaler. She did have allergy testing she does have typical environmental allergies when he comes to the grasses and trees. The patient will be working closely with allergy immunolog. Therefore, will see about switching her over to Symbicort hopefully her insurance covers it. And hopefully on she can tolerated better. In the meantime she is going to continue with respiratory therapy. On further questioning she had has had a diagnosis of sleep apnea made multiple years ago. She does have a machine that is older than 10 years which she no longer uses. She does have significant daytime drowsiness with an [place] score of 12/24. The patient has not had a sleep study more than 10 years. Will go ahead and repeat her sleep home sleep study at this time. Also, she did have a CT scan of the chest PE protocol back in 2020 when she presented with shortness of breath. It actually demonstrated air trapping mosaic pattern consistent with diagnosis of asthma. No other abnormalities noted. 09/26/2022 the patient is here for a pulm onary follow-up visit. The patient overall is doing well. She did get a prescription for Symbicort but she had not tolerated. He taste odd in therefore she is that a couple times and stopped it. She did find the Flovent more effective for her. The patient in the meantime was diagnosed with significant eczema. She also was evaluated by dermatology. After no avail the patient was started on Dupixent. Explained to the patient on Dupixent her asthma symptoms have improved dramatically. The patient is aware that the Dupixent now treat both the eczema in the asthma. Please her pulmonary function studies are reassuring. She does have some small airways disease which is consistent with her asthma. Patient right now is able to deescalate back to the Flovent since her breathing is better. She also has a rescue inhaler as needed and does state a her allergy medication. As far as her sleep she is doing better now that there breathing is better. The patient still has some issues with difficulty sleeping but overall doing well. She does have headaches in the morning. Her [place] score still slightly elevated at 8 over 24. Patient did have a home sleep study demonstrating no significant sleep apnea at this time. The patient is happy about that. If the patient continues to be symptomatic or if there is any witnessed apnea or snoring or she continues with persistent headaches we can always consider an in-lab study in the future. At this point will hold off on any additional testing. 05/12/2023 the patient is here for sick [facility]. Apparently she has been sick for a couple weeks. The patient states that she started developing worsening cough after clearing some would from the back yd of her mom's house. After that she started developing some chest tightness and wheezing or cough. She did go to an urgent care [place] where she was found to be wheezing and she was given a course of prednisone. The prednisone did help some although she continues to have some chest tightness and cough. She does not have enough medication for her nebulizer machine. The patient has been on Dupixent and she has been responding very well from the allergy standpoint. Her exam is better and is likely improving her allergic asthma. Most likely this is more a lower respiratory infection the may have started from a URI. I do believe that the patient will need a course of antibiotics at this point may need additional prednisone since she still having significant wheezing. Will make sure to provide her all the bronchodilation medication that she needs and also will need maintenance therapy. If the patient is now better she will call and request a chest x-ray. [facility] Medical History Allergies Anemia Asthma DVT (deep vein thrombosis) in H. pylori infection History of pulmonary embolism Hypertension Migraines JUNE (obstructive sleep apnea) Pulmonary embolism Social History Alcohol intake: unknown Patient Tobacco Use Status: Never used Tobacco Review of Systems Const Reports daytime sleepiness, Reports difficulty sleeping, Reports headache(s) and Reports snoring Eyes Denies change in vision ENT Denies change in voice and Reports headache(s) Card Denies chest pain and Reports dyspnea Resp Reports cough, Reports dyspnea, Reports snoring and Reports wheezing GI Reports no additional complaints and Reports dyspepsia Musc Reports myalgias, Reports arthralgias and Reports stiffness Skin/Breast Denies rash Neuro Reports no additional complaints and Reports headache(s) Endo Denies flushing Marty/Lymph Denies lymphadenopathy Aller/Immun Reports wheezing Physical Exam Vital Signs: Last Vital Signs Pulse 67 05/12/23 10:50 Pulse Ox 96 05/12/23 10:50 Oxygen Delivery Method Room Air 05/12/23 10:50 BMI result Body Mass Index 40.4 Const General: comfortable HEENT Head: Yes normocephalic Neck Neck: Yes supple Chest Chest palpation & inspection: normal inspection of the chest Resp Effort & Inspection: normal respiratory effort and prolonged expiratory phase Auscultation: rhonchi, wheezes and diminished lung sounds Cardio Rate: regular rate Rhythm: regular rhythm Heart sounds: S1 normal heart sound present and S2 normal heart sound present GI Palpation (GI): Soft to palpation Skin Rashes: rashes noted Extrem General: No clubbing, No cyanosis and Yes edema Assessment & Plan Assessment & Plan (1) Asthma: Code(s): J45.909 - Unspecified asthma, uncomplicated Qualifiers: Asthma severity: moderate Asthma persistence: persistent Asthma complication type: with acute exacerbation Qualified Code(s): J45.41 - Moderate persistent asthma with (acute) exacerbation (2) History of pulmonary embolism: Code(s): Z86.711 - Personal history of pulmonary embolism (3) JUNE (obstructive sleep apnea): Comment: Home PSG with minimal apnea. Code(s): G47.33 - Obstructive sleep apnea (adult) (pediatric) (4) Allergies: Code(s): T78.40XA - Allergy, unspecified, initial encounter Qualifiers: Encounter type: subsequent encounter Qualified Code(s): T78.40XD - Allergy, unspecified, subsequent encounter Plan Prednisone taper Zpack start Advair HFA DIMITRI as needed Continue singulair consider repeating PSG if continue symptomatic continue Dupixent as per Dermatology F/U 4-6 months Medications: New albuterol sulfate 90 mcg/actuation (Ventolin HFA) 2 puffs inhalation QID 30 days PRN 18 grams 11RF shortness of breath or wheezing azithromycin 500 mg PO DAILY 5 days 5 tabs 0RF fluticasone propion-salmeterol 115-21 mcg/actuation (Advair HFA) 2 puffs inhalation Q12H 30 days 12 grams 11RF albuterol sulfate 2.5 mg (3 mL) inhalation Q6H 30 days 180 mL 11RF shortness of breath or wheezing prednisone PO daily; Take 2 tabs daily x 5 days, then 1 tablet daily x 5 days 10 days 15 tabs 0RF Coding Level of Care Code Est Pt Level 4 (79803) Diagnoses Moderate persistent asthma with acute exacerbation J45.41 Asthma severity: moderate Asthma persistence: persistent Asthma complication type: with acute exacerbation History of pulmonary embolism Z86.711 JUNE (obstructive sleep apnea) G47.33 Allergy, subsequent encounter T78.40XD Encounter type: subsequent encounter Time Spent (min) 16
== END 2023-05-12 11:06 | disposition home or self-care (01) ==
PROVIDERS: PCP Internal Medicine; Visit Provider Hospitalist
DX: J45.41 Moderate persistent asthma with (acute) exacerbation (principal); Z86.711 Personal history of pulmonary embolism; G47.33 Obstructive sleep apnea (adult) (pediatric); T78.40XD Allergy, unspecified, subsequent encounter
CPT/HCPCS: 99214

== ENCOUNTER → 2023-05-12 10:46 | Outpatient (BNVA) | payer MEDICARE, MEDICAID, SELFPAY | PROVIDERS: PCP Internal Medicine; Visit Provider Hospitalist | DX: J45.41 Moderate persistent asthma with (acute) exacerbation (principal); R07.89 Other chest pain; G47.33 Obstructive sleep apnea (adult) (pediatric); T78.40XD Allergy, unspecified, subsequent encounter; X58.XXXD Exposure to other specified factors, subsequent encounter; Z79.01 Long term (current) use of anticoagulants; Z86.711 Personal history of pulmonary embolism | CPT/HCPCS: 99212 ==

== ENCOUNTER 2023-08-25 10:26 | Outpatient (AMB) | payer MEDICARE, MEDICAID, SELFPAY ==
--- NOTE | 2023-08-25 10:28 | MHC.OFFVIS ---
Vital Signs 08/25/23 10:30 Height 4 ft 11 in Weight 191 lb 12.835 oz BMI 38.7 Pulse 73 Pulse Source Pulse Oximeter Pulse Oximetry (%) 96 Oxygen Delivery Method Room Air Intake Visit Reasons: copd Social Media Director Required: No Allergies aspirin [ASA] Allergy (Severe, Verified 08/25/23 10:31) SWELLING oxycodone [OXYCODONE] Allergy (Unknown, Verified 08/25/23 10:31) SWELLING shellfish derived [SHELLFISH DERIVED] Allergy (Unknown, Verified 08/25/23 10:31) SWELLING HPI Comments Details: The patient is a 52-year-old woman with lifelong asthma. Apparently she was in her usual state health until back in 2004 when she developed a pulmonary emboli. At that time the patient also was placed on anticoagulation. Subsequently she was taken off anticoagulation in ended up with a repeat event. Now she is on Coumadin. The patient is tolerating it well. As far as her asthma she is having symptoms at nighttime. Usually unable to fall asleep. Sometimes she is able to use a nebulizer with some improvement. She was referred to Allergy. She was provided Trelegy inhaler which she could not tolerate because the powder. Therefore she went back to her Flovent HFA. The patient still having symptoms at nighttime. Using her rescue inhaler. She did have allergy testing she does have typical environmental allergies when he comes to the grasses and trees. The patient will be working closely with allergy immunolog. Therefore, will see about switching her over to Symbicort hopefully her insurance covers it. And hopefully on she can tolerated better. In the meantime she is going to continue with respiratory therapy. On further questioning she had has had a diagnosis of sleep apnea made multiple years ago. She does have a machine that is older than 10 years which she no longer uses. She does have significant daytime drowsiness with an [place] score of 12/24. The patient has not had a sleep study more than 10 years. Will go ahead and repeat her sleep home sleep study at this time. Also, she did have a CT scan of the chest PE protocol back in 2020 when she presented with shortness of breath. It actually demonstrated air trapping mosaic pattern consistent with diagnosis of asthma. No other abnormalities noted. 09/26/2022 the patient is here for a pulmonary follow-up visit. The patient overall is doing well. She did get a prescription for Symbicort but she had not tolerated. He taste odd in therefore she is that a couple times and stopped it. She did find the Flovent more effective for her. The patient in the meantime was diagnosed with significant eczema. She also was evaluated by dermatology. After no avail the patient was started on Dupixent. Explained to the patient on Dupixent her asthma symptoms have improved dramatically. The patient is aware that the Dupixent now treat both the eczema in the asthma. Please her pulmonary function studies are reassuring. She does have some small airways disease which is consistent with her asthma. Patient right now is able to deescalate back to the Flovent since her breathing is better. She also has a rescue inhaler as needed and does state a her allergy medication. As far as her sleep she is doing better now that there breathing is better. The patient still has some issues with difficulty sleeping but overall doing well. She does have headaches in the morning. Her [place] score still slightly elevated at 8 over 24. Patient did have a home sleep study demonstrating no significant sleep apnea at this time. The patient is happy about that. If the patient continues to be symptomatic or if there is any witnessed apnea or snoring or she continues with persistent headaches we can always consider an in-lab study in the future. At this point will hold off on any additional testing. 05/12/2023 the patient is here for sick visit. Apparently she has been sick for a couple weeks. The patient states that she started developing worsening cough after clearing some would from the back yd of her mom's house. After that she started developing some chest tightness and wheezing or cough. She did go to an urgent care [place] where she was found to be wheezing and she was given a course of prednisone. The prednisone did help some although she continues to have some chest tightness and cough. She does not have enough medication for her nebulizer machine. The patient has been on Dupixent and she has been responding very well from the allergy standpoint. Her exam is better and is likely improving her allergic asthma. Most likely this is more a lower respiratory infection the may have started from a URI. I do believe that the patient will need a course of antibiotics at this point may need additional prednisone since she still having significant wheezing. Will make sure to provide her all the bronchodilation medication that she needs and also will need maintenance therapy. If the patient is now better she will call and request a chest x-ray. 08/25/2023 the patient is here for a pulmonary follow-up visit. Overall the patient has been doing a lot better. She has not required any prednisone. The patient has not had to use her rescue inhaler. She continues on her respiratory therapy with good response. She continues on Dupixent injection which also will help both her atopic dermatitis and her significant asthma. She is still having issues with knee pain. She is avoiding surgery. She did start therapy for weight loss hopefully by losing weight she will have some improvement in her respiratory capacity as well. Chest x-ray reviewed no acute disease noted. The patient will continue her current respiratory therapy and follow-up in a year's time. If she develops any issues prior to that she will call for an earlier assessment. [facility] Medical History Allergies Anemia Asthma DVT (deep vein thrombosis) in H. pylori infection History of pulmonary embolism Hypertension Migraines JUNE (obstructive sleep apnea) Pulmonary embolism Social History Alcohol intake: unknown Patient Tobacco Use Status: Never used Tobacco Review of Systems Const Reports daytime sleepiness, Reports difficulty sleeping, Reports headache(s) and Reports snoring Eyes Denies change in vision ENT Denies change in voice and Reports headache(s) Card Denies chest pain and Reports dyspnea Resp Reports cough, Reports dyspnea, Reports snoring and Reports wheezing GI Reports no additional complaints and Reports dyspepsia Musc Reports myalgias, Reports arthralgias and Reports stiffness Skin/Breast Denies rash Neuro Reports no additional complaints and Reports headache(s) Endo Denies flushing Marty/Lymph Denies lymphadenopathy Aller/Immun Reports wheezing Physical Exam Vital Signs: Last Vital Signs Pulse 73 08/25/23 10:30 Pulse Ox 96 08/25/23 10:30 Oxygen Delivery Method Room Air 08/25/23 10:30 BMI result Body Mass Index 38.7 Const General: comfortable HEENT Head: Yes normocephalic Neck Neck: Yes supple Chest Chest palpation & inspection: normal inspection of the chest Resp Effort & Inspection: normal respiratory effort Auscultation: diminished lung sounds Cardio Rate: regular rate Rhythm: regular rhythm Heart sounds: S1 normal heart sound present and S2 normal heart sound present GI Palpation (GI): Soft to palpation Skin Rashes: rashes noted Extrem General: No clubbing, No cyanosis and Yes edema Assessment & Plan Assessment & Plan (1) Asthma: Code(s): J45.909 - Unspecified asthma, uncomplicated Category: Medical Qualifiers: Asthma complication type: uncomplicated Asthma persistence: persistent Asthma severity: moderate Qualified Code(s): J45.40 - Moderate persistent asthma, uncomplicated (2) History of pulmonary embolism: Code(s): Z86.711 - Personal history of pulmonary embolism Category: Medical (3) JUNE (obstructive sleep apnea): Comment: Home PSG with minimal apnea. Code(s): G47.33 - Obstructive sleep apnea (adult) (pediatric) Category: Medical (4) Allergies: Code(s): T78.40XA - Allergy, unspecified, initial encounter Category: Medical Qualifiers: Encounter type: subsequent encounter Qualified Code(s): T78.40XD - Allergy, unspecified, subsequent encounter Plan continue Advair HFA DIMITRI as needed Continue singulair consider repeating PSG if continue symptomatic continue Dupixent as per Dermatology F/U 8-12 months Coding Level of Care Code Est Pt Level 4 (33427) Diagnoses Moderate persistent asthma without complication J45.40 Asthma complication type: uncomplicated Asthma persistence: persistent Asthma severity: moderate History of pulmonary embolism Z86.711 JUNE (obstructive sleep apnea) G47.33 Allergy, subsequent encounter T78.40XD Encounter type: subsequent encounter Time Spent (min) 16
[2023-08-25 10:30] VITALS: PULSE 73; O2SAT 96; BMI 38.7
== END 2023-08-25 11:06 | disposition home or self-care (01) ==
PROVIDERS: PCP Nurse Practitioner Family; Visit Provider Hospitalist
DX: J45.40 Moderate persistent asthma, uncomplicated (principal); Z86.711 Personal history of pulmonary embolism; G47.33 Obstructive sleep apnea (adult) (pediatric); T78.40XD Allergy, unspecified, subsequent encounter
CPT/HCPCS: 99214

== ENCOUNTER → 2023-08-25 10:26 | Outpatient (BNVA) | payer MEDICARE, MEDICAID, SELFPAY | PROVIDERS: PCP Internal Medicine; Visit Provider Hospitalist | DX: J45.40 Moderate persistent asthma, uncomplicated (principal); G47.33 Obstructive sleep apnea (adult) (pediatric); T78.40XD Allergy, unspecified, subsequent encounter; Z86.711 Personal history of pulmonary embolism | CPT/HCPCS: 99212 ==

== ENCOUNTER → 2024-03-20 09:45 | Outpatient (BNVA) | payer MEDICARE, SELFPAY | PROVIDERS: PCP Nurse Practitioner Family; Visit Provider Hospitalist | DX: J10.1 Influenza due to other identified influenza virus with other respiratory manifestations (principal); J45.41 Moderate persistent asthma with (acute) exacerbation; G47.33 Obstructive sleep apnea (adult) (pediatric); T78.40XD Allergy, unspecified, subsequent encounter; Z86.711 Personal history of pulmonary embolism | CPT/HCPCS: 99212 ==

== ENCOUNTER 2024-04-26 10:28 | Outpatient (AMB) | payer MEDICARE, BC, SELFPAY ==
--- NOTE | 2024-04-26 10:30 | A.OFFVIS_ITS ---
Vital Signs 04/26/24 10:32 Height 4 ft 11 in Weight 165 lb 5.547 oz BMI 33.4 BP 106/74 Blood Pressure Location Rt brachial Position Sitting Pulse 64 Pulse Source Pulse Oximeter Pulse Oximetry (%) 97 Oxygen Delivery Method Room Air Intake Visit Reasons: Asthma Allergies aspirin [ASA] Allergy (Severe, Verified 04/26/24 10:35) SWELLING oxycodone [OXYCODONE] Allergy (Unknown, Verified 04/26/24 10:35) SWELLING shellfish derived [SHELLFISH DERIVED] Allergy (Unknown, Verified 04/26/24 10:35) SWELLING HPI Comments Details: The patient is a 53-year-old woman with lifelong asthma. Apparently she was in her usual state health until back in 2004 when she developed a pulmonary emboli. At that time the patient also was placed on anticoagulation. Subsequently she was taken off anticoagulation in ended up with a repeat event. Now she is on Coumadin. The patient is tolerating it well. As far as her asthma she is hav ing symptoms at nighttime. Usually unable to fall asleep. Sometimes she is able to use a nebulizer with some improvement. She was referred to Allergy. She was provided Trelegy inhaler which she could not tolerate because the powder. Therefore she went back to her Flovent HFA. The patient still having symptoms at nighttime. Using her rescue inhaler. She did have allergy testing she does have typical environmental allergies when he comes to the grasses and trees. The patient will be working closely with allergy immunolog. Therefore, will see about switching her over to Symbicort hopefully her insurance covers it. And hopefully on she can tolerated better. In the meantime she is going to continue with respiratory therapy. On further questioning she had has had a diagnosis of sleep apnea made multiple years ago. She does have a machine that is older than 10 years which she no longer uses. She does have significant daytime drowsiness with an Staunton score of 12/24. The patient has not had a sleep study more than 10 years. Will go ahead and repeat her sleep home sleep study at this time. Also, she did have a CT scan of the chest PE protocol back in 2020 when she presented with shortness of breath. It actually demonstrated air trapping mosaic pattern consistent with diagnosis of asthma. No other abnormalities noted. 09/26/2022 the patient is here for a pulmonary follow-up visit. The patient overall is doing well. She did get a prescription for Symbicort but she had not tolerated. He taste odd in therefore she is that a couple times and stopped it. She did find the Flovent more effective for her. The patient in the meantime was diagnosed with significant eczema. She also was evaluated by dermatology. After no avail the patient was started on Dupixent. Explained to the patient on Dupixent her asthma symptoms have improved dramatically. The patient is aware that the Dupixent now treat both the eczema in the asthma. Please her pulmonary function studies are reassuring. She does have some small airways disease which is consistent with her asthma. Patient right now is able to deescalate back to the Flovent since her breathing is better. She also has a rescue inhaler as needed and does state a her allergy medication. As far as her sleep she is doing better now that there breathing is better. The patient still has some issues with difficulty sleeping but overall doing well. She does have headaches in the morning. Her Staunton score still slightly elevated at 8 over 24. Patient did have a home sleep study demonstrating no significant sleep apnea at this time. The patient is happy about that. If the patient continues to be symptomatic or if there is any witnessed apnea or snoring or she continues with persistent headaches we can always consider an in-lab study in the future. At this point will hold off on any additional testing. 05/12/2023 the patient is here for sick visit. Apparently she has been sick for a couple weeks. The patient states that she started developing worsening cough after clearing some would from the back yd of her mom's house. After that she started developing some chest tightness and wheezing or cough. She did go to an urgent care [place] where she was found to be wheezing and she was given a course of prednisone. The prednisone did help some although she continues to have some chest tightness and cough. She does not have enough medication for her nebulizer machine. The patient has been on Dupixent and she has been responding very well from the allergy standpoint. Her exam is better and is likely improving her allergic asthma. Most likely this is more a lower respiratory infection the may have started from a URI. I do believe that the patient will need a course of antibiotics at this point may need additional prednisone since she still having significant wheezing. Will make sure to provide her all the bronchodilation medication that she needs and also will need maintenance therapy. If the patient is now better she will call and request a chest x-ray. 08/25/2023 the patient is here for a pulmonary follow-up visit. Overall the patient has been doing a lot better. She has not required any prednisone. The patient has not had to use her rescue inhaler. She continues on her respiratory therapy with good response. She continues on Dupixent injection which also will help both her atopic dermatitis and her significant asthma. She is still having issues with knee pain. She is avoiding surgery. She did start therapy for weight loss hopefully by losing weight she will have some improvement in her respiratory capacity as well. Chest x-ray reviewed no acute disease noted. The patient will continue her current respiratory therapy and follow-up in a year's time. If she develops any issues prior to that she will call for an earlier assessment. 03/20/2024 the patient is here for a pulmonary sick visit. The patient apparently was flu last week. She went to [facility]. She states that she was not getting any medications. She still feels like she is having chest tightness and cough. Productive in nature. She has been using her albuterol nebulizer treatments frequently. Needs a replacement nebulizer this time. The patient does have some wheezing on examination. Will go ahead and treat her for an asthma exacerbation also doxycycline for postviral bacterial infection. The patient follow-up in 4 months if she has any worsening issues or any concern needs issues she can always call for an earlier assessment. 04/26/2024 the patient is here for a pulmonary follow-up visit. Overall the patient has been doing a lot better. She has not required any prednisone. The patient has not had to use her rescue inhaler. She continues on her respiratory therapy with good response. She continues on Dupixent injection which also will help both her atopic dermatitis and her significant asthma. Although, she needs to get a new approval through her [employer]. She did start therapy for weight loss hopefully by losing weight she will have some improvement in her respiratory capacity as well. Chest x-ray reviewed no acute disease noted. The patient will continue her current respiratory therapy and follow-up in a year's time. If she develops any issues prior to that she will call for an earlier assessment. [facility] Medical History Allergies Anemia Asthma DVT (deep vein thrombosis) in H. pylori infection History of pulmonary embolism Hypertension Migraines JUNE (obstructive sleep apnea) Pulmonary embolism Social History Alcohol intake: unknown Patient Tobacco Use Status: Never used Tobacco Review of Systems Const Reports daytime sleepiness and Denies snoring Eyes Denies change in vision ENT Denies change in voice Card Denies chest pain Resp Denies chest congestion, Reports cough, Denies snoring and Denies wheezing GI Reports no additional complaints and Reports dyspepsia Musc Reports myalgias, Reports arthralgias and Reports stiffness Skin/Breast Denies rash Neuro Reports no additional complaints Endo Denies flushing Marty/Lymph Denies lymphadenopathy Aller/Immun Denies wheezing Physical Exam Vital Signs: Last Vital Signs Pulse 64 04/26/24 10:32 BP 106/74 04/26/24 10:32 Pulse Ox 97 04/26/24 10:32 Oxygen Delivery Method Room Air 04/26/24 10:32 BMI result Body Mass Index 33.4 Const General: comfortable HEENT Head: Yes normocephalic Neck Neck: Yes supple Chest Chest palpation & inspection: normal inspection of the chest Resp Effort & Inspection: normal respiratory effort and No prolonged expiratory phase Auscultation: clear to auscultation bilaterally and no wheezes Cardio Rate: regular rate Rhythm: regular rhythm Heart sounds: S1 normal heart sound present and S2 normal heart sound present GI Palpation (GI): Soft to palpation Skin Rashes: rashes noted Extrem General: No clubbing, No cyanosis and Yes edema Assessment & Plan Assessment & Plan (1) Asthma: Code(s): J45.909 - Unspecified asthma, uncomplicated Category: Medical Qualifiers: Asthma complication type: uncomplicated Asthma persistence: persistent Asthma severity: moderate Qualified Code(s): J45.40 - Moderate persistent asthma, uncomplicated (2) History of pulmonary embolism: Code(s): Z86.711 - Personal history of pulmonary embolism Category: Medical (3) JUNE (obstructive sleep apnea): Comment: Home PSG with minimal apnea. Code(s): G47.33 - Obstructive sleep apnea (adult) (pediatric) Category: Medical (4) Allergies: Code(s): T78.40XA - Allergy, unspecified, initial encounter Category: Medical Qualifiers: Encounter type: subsequent encounter Qualified Code(s): T78.40XD - Allergy, unspecified, subsequent encounter Plan continue Advair HFA DIMITRI as needed Continue singulair positional sleep therapy consider repeating PSG if continue symptomatic continue Dupixent as per Dermatology F/U 1 yr Coding Level of Care Code Est Pt Level 4 (36690) Diagnoses Moderate persistent asthma without complication J45.40 Asthma complication type: uncomplicated Asthma persistence: persistent Asthma severity: moderate History of pulmonary embolism Z86.711 JUNE (obstructive sleep apnea) G47.33 Allergy, subsequent encounter T78.40XD Encounter type: subsequent encounter Time Spent (min) 16
[2024-04-26 10:32] VITALS: BP 106/74; PULSE 64; O2SAT 97; BMI 33.4
--- OUTSIDE RECORDS SUMMARY | 2024-04-26 11:50 | XMS_ITS | Encounter Summary ---
Author Organization [employer] [facility] Address [address] [place] [address] Care Team Providers Care Recruitment Advertising Manager Name Role Phone Blanca Isaacs MD Primary Care Provider Vj Jackson MD Primary Care Provider [phone] Manuela Montero MD Primary Care Provider [phone] [facility], Pcp Primary Care [facility] Encounter Details Date Type Department Care Team Description 11/06/2012 Release of Information Medical Records [address] [place] [id number] Abstract, Provider Social History Tobacco Use Types Packs/Day Years Used Date Smoking Tobacco: Never Smokeless Tobacco: Never Alcohol Use Standard Drinks/Week Comments No 0 (1 standard drink = 0.6 oz pur e alcohol) Sex Assigned at Date Recorded Not on file Job Start Date Occupation Industry Not on file Not on file Not on file documented as of this encounter Plan of Treatment Not on file documented as of this encounter Visit Diagnoses Not on filedocumented in this encounter Additional Health Concerns Infection Onset Date Last Indicated Resolved Time COVID-19 11/15/2022 11/16/2022 documented as of this encounter Care Teams Recruitment Advertising Manager Relationship Specialty Start Date End Date Blanca Isaacs MD PCP - General 01/17/06 07/22/21 Vj Bowden MD [address] [place] [phone] PCP - General Internal Medicine 07/23/21 03/08/22 Manuela Montero MD [address] [place] [address] PCP - General Internal Medicine 03/09/22 08/08/23 [facility], Stella [address] [place] [address] PCP - General Internal Medicine 08/09/23 documented as of this encounter
--- OUTSIDE RECORDS SUMMARY | 2024-04-26 11:50 | XMS_ITS | Encounter Summary ---
Author Organization [employer] [facility] Address [address] [place] [address] Care Team Providers Care Community Associate Name Role Phone Blacna Isaacs MD Primary Care Provider Vj Jackson MD Primary Care Provider [phone] Manuela Montero MD Primary Care Provider [phone] [facility], Pcp Primary Care Provider [facility] Encounter Details Date Type Department Care Team Description 06/12/2018 Business Doc Medical Records [address] [place] [id number] Abstract, Provider Social History Tobacco Use Types [...] documented as of this encounter Care Teams Community Associate Relationship Specialty Start Date End Date Blanca Isaacs MD PCP - General 01/17/06 07/22/21 Vj Bowden MD [address] [place] [address] PCP - General Internal Medicine 07/23/21 03/08/22 Manuela Montero MD [address] [place] [address] PCP - General Internal Medicine 03/09/22 08/08/23 Chan, Stella [address] [place] [address] PCP - General Internal Medicine 08/09/23 documented as of this encounter
--- OUTSIDE RECORDS SUMMARY | 2024-04-26 11:50 | XMS_ITS | Encounter Summary ---
Author Organization [employer] [facility] Address [address] [place] [address] Care Team Providers Care Cloth Washer Operator Name Role Phone Blanca Isaacs MD Primary Care Provider Vj Jackson MD Primary Care Provider [phone] Manuela Montero MD Primary Care Provider [phone] [facility], Pcp Primary Care Provider [facility] Encounter Details Date Type Department Care Team Description 12/24/2009 Controlled Substance Contract with Plan Medical Records [address] [place] [id number] Abstract, Provider Social History Tobacco Use Types Packs/Day Years Used Date Smoking Tobacco: Never Alcohol Use Standard Drinks/Week Comments [...] documented as of this encounter Care Teams Cloth Washer Operator Relationship Specialty Start Date End Date Blanca Isaacs MD PCP - General 01/17/06 07/22/21 Vj Bowden MD [address] [place] [address] PCP - General Internal Medicine 07/23/21 03/08/22 Manuela Montero MD [address] [place] [address] PCP - General Internal Medicine 03/09/22 08/08/23 [facility], Stella [address] [place] [address] PCP - General Internal Medicine 08/09/23 documented as of this encounter
--- OUTSIDE RECORDS SUMMARY | 2024-04-26 11:50 | XMS_ITS | Encounter Summary ---
Author Organization [employer] [facility] Address [address] [place] [address] Care Team Providers Care Tax Accountant Name Role Phone Blanca Isaacs MD Primary Care Provider Vj Jackson MD Primary Care Provider [phone] Manuela Montero MD Primary Care Provider [phone] [facility], Pcp Primary Care Provider [facility] Encounter Details Date Type Department Care Team Description 12/21/2010 [employer] Consultant Report Medical Records [address] [place] [id number] Keysha Ji NP Social History Tobacco Use Types Packs/Day Years [...] documented as of this encounter Care Teams Tax Accountant Relationship Specialty Start Date End Date Blanca Isaacs MD PCP - General 01/17/06 07/22/21 Vj Bowden MD [address] [place] [address] PCP - General Internal Medicine 07/23/21 03/08/22 Manuela Montero MD [address] [place] [address] PCP - General Internal Medicine 03/09/22 08/08/23 Stella Giles [address] [place] [address] PCP - General Internal Medicine 08/09/23 documented as of this encounter
--- OUTSIDE RECORDS SUMMARY | 2024-04-26 11:50 | XMS_ITS | Encounter Summary ---
Author Organization [employer] [facility] Address [address] [place] [address] Care Team Providers Care Cage Clerk Name Role Phone Manuela Montero MD Primary Care Provider [phone] [facility] Primary Care Provider Unavailabl e Reason for Visit * Reason Comments E-prescribe Rx Request Encounter Details Date Type Department Care Team Description 11/27/2022 Refill Adult Medicine [address] [id number] Manuela Montero MD [address] [place] [address] [id number] E-prescribe Rx Request Social History Tobacco Use Types Packs/Day Years Used Date Smoking Tobacco: Never Smokeless Tobacco: Never Alcohol Use Standard Drinks/Week Comments No 0 (1 standard drink = 0.6 oz pur e alcohol) Sex Assigned at Date Recorded Not on file Job Start Date Occupation Industry Not on file Not on file Not on file documented as of this encounter Miscellaneous Notes * Telephone Encounter - Manuela Montero MD - 12/07/2022 7:52 PM EDT Should take over the counter vit d supplement, does not need to continue high dose vit d * Telephone Encounter - Julia Prescott M.A. - 12/07/2022 12:09 PM EDT Last office visit 08/23/22 Next office visit 02/01/23 Hydroxyzine last filled on 08/12/22 for # 30, will you refill? High dose vit d filled 06/16/22 for 12 wks. Should pt be retested or be on daily dose? Loratadine filled on 11/11/22, transmission failed. Lab Results Component Value Date 25OHD 12 06/15/2022 25HYDROXYVIT 12 11/04/2016 Component Ref Range & Units 5 mo ago (06/15/22) 4 yr ago (02/27/18) 6 yr ago (11/04/16) 6 yr ago (06/14/16) 7 yr ago (11/10/15) 7 yr ago (09/01/15) 7 yr ago (06/01/15) IRON (FE) 40 - 150 ug/dL 74 61 60 75 97 118 127 TOTAL IRON BINDING CAPACITY 250 - 450 ug/dL 332 378 R 300 R 284 R 279 R 292 R 363 R % FE SATURATION 15 - 50 % 22 16 20 26 35 40 35 Resulting Agency [facility] * Telephone Encounter - Travon Martel - 12/07/2022 11:12 AM EDT Patient would like script to be: E-PRESCRIBED/FAXED TO PHARMACY WHEN WAS THE PATIENT'S LAST APPOINTMENT IN ADULT MEDICINE? 08/23/2022 WHEN WAS THE LAST TIME THE PATIENT SAW THEIR PCP? 06/13/2022 Does patient have an upcoming appointment? Yes 02/01/2023 (THE MEDICATION REQUESTED IS ON THE MED LIST ABOVE) All of the medications requested were on the CURRENT MEDS list Did you check the Pharmacy information above?: YES Patient wants: 30 -day supply Is this a mail order prescription request ? NO If the refill is from a FAXED refill request what is the RX # listed on the fax? N/A Patients current insurance carrier is: Payor: MEDICARE-Netac / Plan: MEDICARE-Netac / Product Type: MEDICARE [id number] documented in this encounter Plan of Treatment Not on file documented as of this encounter Visit Diagnoses Not on filedocumented in this encounter Additional Health Concerns Infection Onset Date Last Indicated Resolved Time COVID-19 11/15/2022 11/16/2022 documented as of this encounter Care Teams Cage Clerk Relationship Specialty Start Date End Date Manuela Montero MD [address] [place] [address] PCP - General Internal Medicine 03/09/22 08/08/23 [facility], [address] [phone] PCP - General Internal Medicine 08/09/23 documented as of this encounter
--- OUTSIDE RECORDS SUMMARY | 2024-04-26 11:50 | XMS_ITS | Encounter Summary ---
Author Organization [employer] [facility] Address [address] [place] [address] Care Team Providers Care Black Mill Operator Name Role Phone Blanca Isaacs MD Primary Care Provider Vj Jackson MD Primary Care Provider [phone] Manuela Montero MD Primary Care Provider [phone] [facility], Pcp Primary Care Provider [facility] Encounter Details Date Type Department Care Team Description 04/25/2012 Controlled Substance Plan Medical Records [address] [place] [address] Abstract, Provider Social History Tobacco Use Types [...] documented as of this encounter Care Teams Black Mill Operator Relationship Specialty Start Date End Date Blanca Isaacs MD PCP - General 01/17/06 07/22/21 Vj Bowden MD [address] [place] [address] PCP - General Internal Medicine 07/23/21 03/08/22 Manuela Montero MD [address] [place] [address] PCP - General Internal Medicine 03/09/22 08/08/23 [facility], Stella [address] [place] [address] PCP - General Internal Medicine 08/09/23 documented as of this encounter
--- OUTSIDE RECORDS SUMMARY | 2024-04-26 11:50 | XMS_ITS | Encounter Summary ---
Author Organization [employer] [facility] Address [address] [place] [address] Care Team Providers Care Otr Owner Operator Name Role Phone Blanca Isaacs MD Primary Care Provider Vj Jackson MD Primary Care Provider [phone] Manuela Montero MD Primary Care Provider [phone] [facility], Pcp Primary Care Provider [facility] Encounter Details Date Type Department Care Team Description 08/24/2010 Vinyl Installer Report Medical Records [address] [place] [address] Moris Beatty MD Social History Tobacco Use Types Packs/Day Years [...] documented as of this encounter Care Teams Otr Owner Operator Relationship Specialty Start Date End Date Blanca Isaacs MD PCP - General 01/17/06 07/22/21 Vj Bowden MD [address] [place] [address] PCP - General Internal Medicine 07/23/21 03/08/22 Manuela Montero MD [address] [place] [address] PCP - General Internal Medicine 03/09/22 08/08/23 [facility], Stella [address] [place] [address] PCP - General Internal Medicine 08/09/23 documented as of this encounter
--- OUTSIDE RECORDS SUMMARY | 2024-04-26 11:50 | XMS_ITS | Encounter Summary ---
Author Organization [employer] [facility] Address [address] [place] [address] Care Team Providers Care Scientific Research Manager Name Role Phone Blanca Isaacs MD Primary Care Provider Vj Jackson MD Primary Care Provider [phone] Maneula Montero MD Primary Care Provider [phone] [facility], Pcp Primary Care Provider [facility] e Encounter Details Date Type Department Care Team Description 12/04/2012 Retail Business Manager Report Medical Records [address] [place] [address] Jamarcus Perez MD Social History Tobacco Use Types Packs/Day [...] documented as of this encounter Care Teams Scientific Research Manager Relationship Specialty Start Date End Date Blanca Isaacs MD PCP - General 01/17/06 07/22/21 Vj Bowden MD [address] [place] [address] PCP - General Internal Medicine 07/23/21 03/08/22 Manuela Montero MD [address] [place] [address] PCP - General Internal Medicine 03/09/22 08/08/23 Stella Giles [address] [place] [address] PCP - General Internal Medicine 08/09/23 documented as of this encounter
--- OUTSIDE RECORDS SUMMARY | 2024-04-26 11:50 | XMS_ITS | Encounter Summary ---
Author Organization [employer] [facility] Address [address] [place] [address] Care Team Providers Care Clerical Stock Inspector Name Role Phone Manuela Montero MD Primary Care Provider [phone] [facility] Primary Care Provider Unavailabl e Reason for Visit * Reason Onset Date Comments medication problems 12/07/2022 montelukast (SINGULAIR) 10 MG tablet Encounter Details Date Type Department Care Team Description 12/07/2022 Telephone Adult Medicine [address] [address] Manuela Montero MD [address] [place] [address] [phone] medication problems (montelukast (SINGULAIR) 10 MG tablet) Social History Tobacco Use Types Packs/Day Years [...] encounter Miscellaneous Notes * Telephone Encounter - Risa Seth M.A. - 12/07/2022 1:51 PM EDT Auth sent with cover my meds [id number] The patient currently has access to the requested medication and a Prior Authorization is not needed for the patient/medication Risa Seth Prior Auth Dep Ext [id number] * Telephone Encounter - Lonnie Santana PA-C - 12/07/2022 12:19 PM EDT Can we look into a prior auth for singulair? Has asthma and doing well on advair, singulair, and albuterol. * Telephone Encounter - Julia Prescott M.A. - 12/07/2022 11:44 AM EDT Singulair last filled by Lonnie Santana on 09/07/22 for 90 days with 1 refill Pt is also on Loratadine. Lonnie, See below message. * Telephone Encounter - Travon Martel - 12/07/2022 11:08 AM EDT Who is calling? The patient Name of the medication montelukast (SINGULAIR) 10 MG tablet What is the specific problem or interaction? The patient states that their pharmacy will not cover for this medication. Requesting an alternative If the patient is having a problem with taking the med - how long has the problem been going on? N/A documented in this encounter Plan of Treatment Not on file documented as of this encounter Visit Diagnoses Not on filedocumented in this encounter Additional Health Concerns Infection Onset Date Last Indicated Resolved Time COVID-19 11/15/2022 11/16/2022 documented as of this encounter Care Teams Clerical Stock Inspector Relationship Specialty Start Date End Date Manuela Montero MD [address] [place] [address] PCP - General Internal Medicine 03/09/22 08/08/23 [facility], Pcp [address] [place] [id number] PCP - General Internal Medicine 08/09/23 documented as of this encounter
--- OUTSIDE RECORDS SUMMARY | 2024-04-26 11:50 | XMS_ITS | Encounter Summary ---
Author Organization [employer] [facility] Address [address] [place] [address] Care Team Providers Care Gold Nib Grinder Name Role Phone Vj Bowden MD Primary Care Provider [phone] Manuela Montero MD Primary Care Provider [phone] [facility], Pcp Primary Care Provider Unavailabl e Reason for Visit * Reason Onset Date Comments medication problems 02/09/2022 Encounter Details Date Type Department Care Team Description 02/09/2022 Telephone Adult Medicine - [address] [address] Vj Bowden MD [address] [place] [phone] medication problems (/) Social History Tobacco Use Types Packs/Day Years Used Date Smoking Tobacco: Never Smokeless Tobacco: Never Alcohol Use Standard Drinks/Week Comments No 0 (1 standard drink = 0.6 oz pur e alcohol) Sex Assigned at Date Recorded Not on file Job Start Date Occupation Industry Not on file Not on file Not on file COVID-19 Exposure Response Date Recorded In the last 10 days, have yo u been in contact with someone who was confirmed or suspected to have Coronavirus/COVID-19? No / Unsure 02/05/2022 9:53 AM EST documented as of this encounter Miscellaneous Notes * Telephone Encounter - Jo Mendez M.A. - 02/09/2022 9:10 AM EST Last office visit 02/05/22 Lab Results Component Value Date NA 142 04/06/2021 K 4.3 04/06/2021 CO2 25 04/06/2021 CL 111 04/06/2021 BUN 16 04/06/2021 CREAT 0.61 04/06/2021 GLU 86 04/06/2021 CA 9.0 04/06/2021 GFR > 60 04/06/2021 * Telephone Encounter - Ayde Pacheco - 02/09/2022 9:01 AM EST Who is calling? A pharmacist: Pharmacy: [facility] Pharmacist Name: Fax Pharmacy Name of the medication ALBUTEROL SULFATE 108 (90 Base) MCG/ACT Aero Soln What is the specific problem or interaction? Insurance prefers Levalbuterol If the patient is having a problem [...] documented as of this encounter Care Teams Gold Nib Grinder Relationship Specialty Start Date End Date Vj Bowden MD [address] [place] [id number] PCP - General Internal Medicine 07/23/21 03/08/22 Manuela Montero MD [address] [place] [address] [id number] PCP - General Internal Medicine 03/09/22 08/08/23 Stella Giles [address] [place] [id number] PCP - General Internal Medicine 08/09/23 documented as of this encounter
--- OUTSIDE RECORDS SUMMARY | 2024-04-26 11:50 | XMS_ITS | Clinical Summary ---
Author Organization [facility] Address [address] [place] [address] Care Team Providers Care Territory Business Manager Name Role Phone Manuela Montero MD Primary Care Provider [phone] Allergies Active Allergy Reactions Criticality Noted Date Comments Acetaminophen Itching 08/03/2007 Aspirin 03/28/2012 Oxycodone-Acetaminophen Swelling Medium 12/24/2018 Salicylates Swelling 01/18/2006 eyes Rast was (-) for ASA per old record Shellfish Containing Products Anaphylaxis High 01/18/2006 Medications hydrOXYzine HCL (ATARAX) 25 mg tablet Take 1 tablet (25 mg total) by mouth at bedtime as needed for itching. 4 Active cholecalciferol (VITAMIN D-3) 50 mcg (2,000 unit) tablet Take 1 tablet (2,000 Units total) by mouth 1 (one) time each day. 4 Active fluticasone propionate (FLONASE) 50 mcg/actuation nasal spray 2 Sprays by Nasal route daily. 4 Active loratadine (CLARITIN) 10 mg tablet Take 1 tablet (10 mg total) by mouth 1 (one) time each day. 4 Active mometasone (ELOCON) 0.1 % cream Appy 1g to skin rash daily 4 07/06/19 25 Active budesonide-formo teroL (SYMBICORT) 160-4.5 mcg/actuation inhaler Inhale 2 Puffs into the lungs 2 times daily. Filled by pulmonology Active montelukast (SINGULAIR) 10 mg tablet Take 1 tablet (10 mg total) by mouth at bedtime. 4 Active hydroCHLOROthiaz wilner (MICROZIDE) 12.5 mg capsule Take 1 capsule (12.5 mg total) by mouth 1 (one) time each day in the morning. 4 Active EpiPen 2-Bladimir 0.3 mg/0.3 mL injection Inject 0.3 mg into the muscle as needed for Other (anaphylactic reaction). Fill with whichever brand is covered by insurance. 3 Active topiramate (TOPAMAX) 100 mg tablet Take 1 tablet (100 mg total) by mouth 2 (two) times a day. 3 Active albuterol HFA (PROAIR HFA ; PROVENTIL HFA ; VENTOLIN HFA) 90 mcg/actuation inhaler Inhale 2 Puffs into the lungs every 6 hours as needed for Cough, Wheezing or Shortness of Breath. 3 Active ascorbic acid (Vitamin C) 500 mg tablet Take 1 tablet (500 mg total) by mouth 2 (two) times a day. 3 Active warfarin (COUMADIN) 5 mg tablet Take 1.5-2 Tablets by mouth daily. 3 Active senna 8.6 mg tablet TAKE 2 TABLETS BY MOUTH 2 TIMES DAILY NEEDED (CONSTIPATION). 3 Active ferrous sulfate 325 mg (65 mg elemental iron) tablet Take 1 tablet (325 mg total) by mouth 2 (two) times a day. 3 Active meclizine (ANTIVERT) 12.5 mg tablet TAKE 1 TABLET BY MOUTH THREE TIMES A DAY NEEDED FOR DIZZINESS 3 Active albuterol 2.5 mg /3 mL (0.083 %) nebulizer solution USE 1 VIAL VIA NEBULIZER EVERY 6 HOURS NEEDED FOR WHEEZE 3 Active omeprazole (PriLOSEC) [address] capsule Take 1 capsule (20 mg total) by mouth 1 (one) time each day. 3 Active gabapentin (NEURONTIN) 300 mg capsule TAKE 1 CAPSULE IN THE MORNING 1 CAPSULE IN THE AFTERNOON AND 2 CAPSULES AT BEDTIME 3 Active acetaminophen (TYLENOL) 500 mg tablet Take 1 Tablet by mouth 3 times daily as needed for Pain or Fever. 3 Active diphenhydrAMINE (BENADRYL) 25 mg tablet Take 1 Tablet by mouth 2 times daily as needed for Itching. 3 Active diclofenac (VOLTAREN) 1 % topical gel Apply 4 g topically 4 times daily as needed for Other (pain). Apply up to 4 g to each affected area up to 4 times daily; maximum dose per area: 16 g/day; maximum total body dose 2 Active Lactobacillus acidophilus (PROBIOTIC ORAL) Take 1 Cap by mouth every morning (before breakfast). 0 Active incontinence pad, liner, disp pad Use 1 daily as directed 9 Active Active Problems Problem Noted Date Diagnosed Date Gastric pain 02/16/2024 H. pylori infection 02/16/2024 Postprandial epigastric pain 02/16/2024 GERD (gastroesophageal reflux disease) 5 Recurrent pulmonary emboli 03/14/2023 Allergic rhinitis 06/29/2020 Obesity (BMI 30-39.9) 11/30/2017 Vitamin D deficiency 11/07/2016 GERD without esophagitis 11/23/2015 Knee pain, bilateral 10/24/2012 Overview (02/16/2024): Sees Dr. Rhodes Varicose veins of both lower extremities with pa in 04/30/2012 Chronic leg pain 02/15/2012 Chest pain 08/18/2009 Overview (02/16/2024): ECHO08/2009: Echocardiographic study is remarkable for: Normal cardiac chamber as well as EF of 55 to 60%. Normal cardiac valve morphology. Trivial mitral and tricuspid regurgitation, which are both physiologic. Normal RV systolic pressure. No pericardial effusion. Urinary incontinence 01/06/2009 Overview (02/16/2024): Sees [facility] Iron deficiency anemia 01/20/2006 Asthma 01/18/2006 Convulsions 01/18/2006 Overview (02/16/2024): Dr. Stefania Morris DVT (deep venous thrombosis) 01/18/2006 Overview (02/16/2024): on coumadin since 01/18. will need permanent Coumadin history of DVT in past 2004. Migraine 01/18/2006 Overview (02/16/2024): IMO update Immunizations Name Administration Dates Next Due Influenza Quadravalent, MDCK , 0.5ml, preservative free (Flucelvax) 6mo and older 11/11/2021,12/01/2020,12/30/2019,04/03 Influenza Quadravalent, MDCK , 0.5ml, with preservative (Flucelvax) 6mo and older 12/22/2017,10/28/2016 Influenza trivalent, 0.5mL, preservative free (Fluarix; FluLaval; Fluzone) ages 6mo and older (Afluria) 3 years and older 11/10/2015,11/05/2014,10/24/2012,10/26,10/19/2010,12/23/2009,11/07/2008 ,11/14/2007,11/15/2006 PPD Test 10/31/2017 [employer] SARS-CoV-2 COVID-19, mRNA, LNP-S, preservative free 06/11/2020,05/20/2020 Pneumococcal polysaccharide 23 valent (Pneumovax 23) 2yo and older 04/24/2013 Td Tetanus diptheria (Tdvax) 7yo and older 01/20/2017 Tdap Tetanus diptheria acell ular pertussis (Boostrix; Adacel) 7yo and older 04/13/2006 Surgical History Surgery Date Site/Laterality Comments OTHER SURGICAL HISTORY PROCEDURE: IA LIG/TRNSXJ FLP TUBE ABDL/VAG APPR UNI/BI CHOLECYSTECTOMY PROCEDURE: IA CHOLECYSTECTOMY; COMMENT: UNSURE JUST GALLSTONE OR COMPLETE GLAABLADDER REMOVAL. NO RECORD AVAILABLE OTHER SURGICAL HISTORY PROCEDURE: HISTORICAL UNSPECIFIED SURGERY; COMMENT: varicose vein surgery UPPER GASTROINTESTINAL ENDOSCOPY 02/05/2020 PROCEDURE: UPPER GI ENDOSCOPY/EXAM; COMMENT: unremarkable. biopsy pending Medical History Medical History Date Comments Depressive disorder, not els ewhere classified 01/18/2006 DX:Depressive disorder, not elsewhere classified Migraine with aura, without mention of intractable migraine without mention of status migrainosus 01/18/2006 DX:Migraine with aura, witho ut mention of intractable migraine without mention of status migrainosus Unspecified asthma(493.90) 01/18/2006 DX:Un specified asthma(493.90) Other convulsions 01/18/2006 DX:Other convu lsions; COMMENT: Dr. Stefania Morris Varicose veins of both lower extremities with pain 04/30/2012 DX:Varicose veins of both lo wer extremities with pain Covid-19 DX:COVID-19 History of DVT (deep vein thrombosis) DX:History of DVT (deep vein thrombosis) Gastric pain DX:Gastric pain Postprandial epigastric pain DX: Postprandial epigastric pain GERD (gastroesophageal reflux disease) DX:GERD (gastroesophageal reflux disease) H. pylori infection DX:H. pylori infection Family History Medical History Relation Name Comments Hyperlipidemia Mother Hypertension Mother Breast cancer Other m. aunt Relation Name Status Comments Father Alive Mother Alive Other m. aunt Alive Social History Tobacco Use Types Packs/Day Years Used Date Smoking Tobacco: Never Smokeless Tobacco: Never Alcohol Use Standard Drinks/Week Comments No 0 (1 standard drink = 0.6 oz pur e alcohol) Comments Unknown Sex and Gender Information Value Date Recorded Sex Assigned at Not on file Legal Sex Female 5:19 AM EST Gender Identity Not on file Sexual Orientation Not on file Obstetrics History Last Filed Vital Signs Vital Sign Reading Time Taken Comments Blood Pressure 117/68 07/13/2023 9:48 AM EDT Pulse 58 07/13/2023 9:48 AM EDT Temperature - - Respiratory Rate - - Oxygen Saturation 96% 02/01/2023 3:0 2 PM EST at rest, room air Inhaled Oxygen Concentration - - Weight 89.5 kg (197 lb 6 oz) 07/13/2023 9:48 AM EDT Height 152.4 cm (5') 07/13/2023 9:48 AM EDT Body Mass Index 38.55 07/13/2023 9:48 AM EDT Plan of Treatment Upcoming Encounters Date Type Department Care Team (Late st Contact Info) Description 04/29/2024 10:40 AM EDT Appointment Radiology Department [address] [phone] Health Maintenance Due Date Last Done Comments Hepatitis B Vaccines (+ 3-dose series) 1989 Zoster Vaccines (1 of 2) 1989 Pneumococcal Vaccine: 50+ Years (2 of 2 - PCV) 04/24/2014 04/24/2013 Pneumococcal Vaccine: Pediatrics (0 to 5 Years) and At-Risk Patients (6 to 64 Years) (2 of 2 - PCV) 04/24/2014 04/24/2013 COVID-19 Vaccine (3 - Pfizer risk series) 07/09/2020 06/11/2020, 05/20/2020 Colorectal Cancer Screening: FIT-DNA (Cologuard) 01/16/2022 Depression Screening 01/16/2022 Hepatitis C Screening 01/16/2022 Medicare Annual Wellness Visit 01/16/2022 Social Influencers of Health Screening 01/16/2022 Influenza Vaccine (#1) 2023 2, 12/01/2020, 12/30/2019, Additional history exists Hypertension/CHF/CAD Annual BMP Blood Test 05/03/2024 05/04/2023 Breast Cancer Screening 04/19/2025 04/20/19 24, 04/13/2022, 04/07/2021, Additional history exists Cervical Cancer Screening: HPV 06/29/2026 06/29/2021 DTaP,Tdap,and Td Vaccines (3 - Td or Tdap) 01/20/2027 01/20/2017, 04/13/2006 Cholesterol Screening (Lipid Panel) 05/03/2028 05/04/2023 HIV Screening Completed 10/25/2010 HIB Vaccines Aged Out No longer eligi ble based on patient's age to complete this topic HPV Vaccines Aged Out No longer eligi ble based on patient's age to complete this topic Hepatitis A Vaccines Aged Out No long er eligible based on patient's age to complete this topic IPV Vaccines Aged Out No longer eligi ble based on patient's age to complete this topic MMR Vaccines Aged Out No longer eligi ble based on patient's age to complete this topic Meningococcal ACWY Vaccine Aged Out N o longer eligible based on patient's age to complete this topic Meningococcal B Vacine Aged Out No lo nger eligible based on patient's age to complete this topic RSV Immunization Patients Under 20 months Aged Out No longer eligible based on patient's age to complete this topic Varicella Vaccines Aged Out No longer eligible based on patient's age to complete this topic Procedures Procedure Name Priority Date/Time Associated Diagnosis Comments ANNUAL BMP BLOOD TEST Routine 05/04/2023 LIPID PANEL Routine 05/04/2023 SCREENING MAMMOGRAPHY BI 2-VIEW BREAST INC CAD Routine 04/20/2023 10:03 AM EST Encounter for screening mammogram for malignant neoplasm of breast HPV Routine 06/29/2021 HIV SCREENING Routine 10/25/2010 from Last 3 Months or Most Recently Relevant to Health Maintenance Results * Annual BMP Blood Test (05/04/2023) Annual BMP Blood Test ABSTRACTED Historical Provider HEALTH MAINTENANCE Final Result * Lipid panel (05/04/2023) LDL/HDL Ratio 3 0 - 4 Triglycerides 111 0 - 150 mg/dL Cholesterol 172 0 - 200 mg/dL HDL 52 >=40 mg/dL LDL Cholesterol 98 0 - 100 mg/dL Blood Venous blood specimen / Unknown Historical Provider LAB BLOOD ORDERABLES Kiersten l Result * SCREENING MAMMOGRAPHY BI 2-VIEW BREAST INC CAD (04/20/2023 10:03 AM EST) Anatomical Region Laterality Modality Radiographic Filomena ging 04/13/2022 10:0 5 AM EST Narrative 04/20/2023 1:02 PM EST This is a summary report. The complete report is available in the patient's medical record. If you cannot access the medical record, please contact the sending organization for a detailed fax or copy. Full field digital screening tomosynthesis mammography, reviewed with CAD and compared to previous. The breasts are composed of fatty and fibroglandular tissue. ??No suspicious mass, architectural distortion or suspicious calcifications are identified. IMPRESSION: : No mammographic evidence of malignancy. BIRADS 1-Negative; N. 5 year breast cancer risk assessment 0.5 % Lifetime breast cancer risk assessment 4.0 % Breast cancer risk category Low (<15%) Procedure Note Kalen Javier MD - 10/02/2023 This is a summary report. The complete report is available in thepatient's medical record. If you cannot access the medical record, pleasecontact the sending organization for a detailed fax or copy. Full field digital screening tomosynthesis mammography, reviewed with CADand compared to previous. The breasts are composed of fatty andfibroglandular tissue. No suspicious mass, architectural distortion orsuspicious calcifications are identified. IMPRESSION: : No mammographic evidence of malignancy. BIRADS 1-Negative; N. 5 year breast cancer risk assessment 0.5 % Lifetime breast cancer risk assessment 4.0 % Breast cancer risk category Low (<15%) Manuela Montero MD IMG XR PROCEDURES Final Result * Cervical Cancer Screening: HPV (06/29/2021) [facility] Cervical Cancer Screening: HPV negative,a bstracted Historical Provider HEALTH MAINTENANCE Final Result * HIV Screening (10/25/2010) [facility] HIV Screening ABSTRACTED Historical Provider HEALTH MAINTENANCE Final Result from Last 3 Months or Most Recently Relevant to Health Maintenance Insurance MEDICARE Care Teams Territory Business Manager Relationship Specialty Start Date End Date Manuela Montero MD [address] [place] [id number] PCP - General Internal Medicine 04/26/24
--- OUTSIDE RECORDS SUMMARY | 2024-04-26 11:50 | XMS_ITS | Encounter Summary ---
Author Organization [employer] [facility] Address [address] [place] [address] Care Team Providers Care Jointer Submarine Cable Name Role Phone Manuela Montero MD Primary Care Provider [phone] [facility], Pcp Primary Care Provider Unavailabl e Encounter Details Date Type Department Care Team Description 03/17/2023 Orders Only Medical Records [address] [place] [address] Default, Provider Social History Tobacco Use Types Packs/Day [...] on file documented as of this encounter Procedures Procedure Name Priority Date/Time Associated Diagnosis Comments CHG PROTHROMBIN TIME Routine 02/02/2022 CHG PROTHROMBIN TIME Routine 01/26/2022 documented in this encounter Results * CHG PROTHROMBIN TIME (02/02/2022) Provider Default LAB * CHG PROTHROMBIN TIME (01/26/2022) Provider Default LAB documented in this encounter Visit Diagnoses Not on filedocumented in this encounter Additional Health Concerns Infection Onset Date Last Indicated Resolved Time COVID-19 11/15/2022 11/16/2022 documented as of this encounter Care Teams Jointer Submarine Cable Relationship Specialty Start Date End Date Manuela Montero MD [address], [place] [phone] PCP - General Internal Medicine 03/09/22 08/08/23 [facility], [address] [address] PCP - General Internal Medicine 08/09/23 documented as of this encounter
--- OUTSIDE RECORDS SUMMARY | 2024-04-26 11:50 | XMS_ITS | Encounter Summary ---
Author Organization [employer] [facility] Address [address] [place] [address] Care Team Providers Care Capsule Machine Operator Name Role Phone Blanca Isaacs MD Primary Care Provider Vj Jackson MD Primary Care Provider [phone] Manuela Montero MD Primary Care Provider [phone] [facility], Pcp Primary Care [facility] Encounter Details Date Type Department Care Team Description 10/21/2009 Education Intern Report Medical Records [address] [place] [id number] Matthew Jackson Social History Tobacco Use Types Packs/Day Years [...] documented as of this encounter Care Teams Capsule Machine Operator Relationship Specialty Start Date End Date Blanca Isaacs MD PCP - General 01/17/06 07/22/21 Vj Bowden MD [address] [place] [phone] PCP - General Internal Medicine 07/23/21 03/08/22 Manuela Montero MD [address] [place] [address] PCP - General Internal Medicine 03/09/22 08/08/23 Chan, Stella [address] [place] [id number] PCP - General Internal Medicine 08/09/23 documented as of this encounter
--- OUTSIDE RECORDS SUMMARY | 2024-04-26 11:50 | XMS_ITS | Encounter Summary ---
Author Organization [employer] [facility] Address [address] [place] [address] Care Team Providers Care Public Works Laborer Name Role Phone Blanca Isaacs MD Primary Care Provider Vj Jackson MD Primary Care Provider [phone] Manuela Montero MD Primary Care Provider [phone] [facility], Pcp Primary [facility] Reason for Visit * Reason Comments E-prescribe Rx Request Encounter Details Date Type Department Care Team Description 05/11/2018 Refill Adult Medicine [address] [address] Blanca Isaacs MD E-prescribe Rx Request Social History Tobacco Use [...] encounter Miscellaneous Notes * Telephone Encounter - Estefania Cage M.A. - 05/11/2018 3:58 PM EDT Lab Results Component Value Date NA 142 02/27/2018 K 4.6 02/27/2018 CO2 28.0 02/27/2018 CL 104 02/27/2018 BUN 15 02/27/2018 CREAT 0.5 02/27/2018 GLU 86 02/27/2018 CA 9.3 02/27/2018 GFR > 60 02/27/2018 Last ov with pcp 05/08/18 * Telephone Encounter - Suzi Giron - 05/11/2018 3:50 PM EDT Patient would like script to be: E-PRESCRIBED/FAXED TO PHARMACY WHEN WAS THE PATIENT'S LAST APPOINTMENT IN ADULT MEDICINE? 05/08/18 WHEN WAS THE LAST TIME THE PATIENT SAW THEIR PCP? Same as above Does patient have an upcoming appointment? No-unable to reach left [facility] to call for appointment due to refill request. Appt due August 2018 (THE MEDICATION REQUESTED IS ON THE MED [...] N/A Patients current insurance carrier is: Payor: [employer] / Plan: PPO $0 CHELI [id number] / Product Type: PPO [id number] Insurance ID #: [id number] documented in this encounter Plan of Treatment Not on file documented as of this encounter Visit Diagnoses Not on filedocumented in this encounter Additional Health Concerns Infection Onset Date Last Indicated Resolved Time COVID-19 11/15/2022 11/16/2022 documented as of this encounter Care Teams Public Works Laborer Relationship Specialty Start Date End Date Blanca Isaacs MD PCP - General 01/17/06 07/22/21 Vj Bowden MD [address] [place] [address] PCP - General Internal Medicine 07/23/21 03/08/22 Manuela Montero MD [address] [place] [phone] PCP - General Internal Medicine 03/09/22 08/08/23 [facility], [address] [address] PCP - General Internal Medicine 08/09/23 documented as of this encounter
--- OUTSIDE RECORDS SUMMARY | 2024-04-26 11:50 | XMS_ITS | Encounter Summary ---
Author Organization [facility] Address [address] [place] [address] Care Team Providers Care Machine Repairer Maintenance Name Role Phone Blanca Isaacs MD Primary Care Provider Vj Jackson MD Primary Care Provider [phone] Manuela Montero MD Primary Care Provider [phone] [facility], Pcp Primary Care Provider [facility] e Encounter Details Date Type Department Care Team Description 03/05/2015 Business Doc Medical Records [address] [place] [address] Abstract, Provider Social History Tobacco Use Types [...] documented as of this encounter Care Teams Machine Repairer Maintenance Relationship Specialty Start Date End Date Blanca Isaacs MD PCP - General 01/17/06 07/22/21 Vj Bowden MD [address] [place] [address] PCP - General Internal Medicine 07/23/21 03/08/22 Manuela Montero MD [address] [place] [address] PCP - General Internal Medicine 03/09/22 08/08/23 Chan, Stella [address] [place] [address] PCP - General Internal Medicine 08/09/23 documented as of this encounter
--- OUTSIDE RECORDS SUMMARY | 2024-04-26 11:50 | XMS_ITS | Clinical Summary ---
Author Organization [facility] Address [address] [place], [place] [address] Care Team Providers Care Intern Architect Name Role Phone Chata King DO Primary Care P rovider Allergies Active Allergy Reactions Criticality Noted Date Comments Aspirin 03/28/2012 Other Anaphylaxis High 01/18/2006 Oxycodone-Acetaminophen 09/10/2018 Medications Medication Sig Dispensed Refills Start Date End Date Status loratadine (CLARITIN) 10 MG tablet Take 10 mg by mouth daily. 5 08/16/2018 Active ferrous sulfate 325 (65 FE) MG tablet Take 1 tablet by mouth 2 (two) times a day. 4 08/16/2018 Active clindamycin (CLEOCIN) 300 MG capsule 0 09/05/2018 Active ergocalciferol (VITAMIN D2) capsule 83947 units Take 50,000 Units by mouth. 0 11/07/2016 Active topiramate (TOPAMAX) 100 MG tablet 0 09/03/2018 Active warfarin (COUMADIN) 5 MG tablet TAKE 1 & 1/2 TO 2 TABLETS BY MOUTH AT THE SAME TIME EVERY DAY 0 06/11/2018 Active meclizine (ANTIVERT) 12.5 MG tablet Take 12.5 mg by mouth 3 (three) times a day as needed. 0 Active omeprazole (PriLOSEC) 20 MG capsule Take 20 mg by mouth daily. 0 Active oxybutynin (DITROPAN) 5 MG tablet Take 5 mg by mouth 3 (three) times a day. 0 Active Active Problems No known active problems Family History Medical History Relation Name Comments Hyperlipidemia Father Relation Name Status Comments Father Social History Tobacco Use Types Packs/Day Years Used Date Smoking Tobacco: Never Smokeless Tobacco: Never Alcohol Use Standard Drinks/Week Comments No 0 (1 standard drink = 0.6 oz pur e alcohol) Sex and Gender Information Value Date Recorded Sex Assigned at Not on file Gender Identity Not on file Sexual Orientation Not on file Last Filed Vital Signs Vital Sign Reading Time Taken Comments Blood Pressure - - Pulse - - Temperature - - Respiratory Rate - - Oxygen Saturation - - Inhaled Oxygen Concentration - - Weight 84.4 kg (186 lb) 09/24/2018 1:34 PM EDT Height 152.4 cm (5') 09/24/2018 1:34 PM EDT Body Mass Index 36.33 09/24/2018 1:34 PM EDT Plan of Treatment Health Maintenance Due Date Last Done Comments Hepatitis B Vaccines (1 of 3 - 3-dose series) 1970 Hepatitis C Screening 1970 COVID-19 Vaccine (#1) 03/15/1971 Depression Screening 1982 BMI Counseling 1988 Preventative Health Evaluation 1988 Cervical Cancer Screening (Pap Smear) 09/13/1991 Colon Cancer Screening (Colonoscopy) 09/13/2015 DTap / Tdap / Td (2 - Td or Tdap) 04/13/2016 04/13/2006 Breast Cancer Screening (Mammogram) 2020 Shingrix-Zoster Vaccine (1 of 2) 2020 Influenza Vaccine (#1) 2023 8, 10/28/2016, 11/10/2015, Additional history exists Pneumococcal Vaccine Aged Out 04/24/2013 No long er eligible based on patient's age to complete this topic RSV Ped < 20 months Aged Out No longe r eligible based on patient's age to complete this topic Care Teams Intern Architect Relationship Specialty Start Date End Date Chata King DO PCP - General Communication Consultant 09/07/18
--- OUTSIDE RECORDS SUMMARY | 2024-04-26 11:50 | XMS_ITS | Encounter Summary ---
Author Organization [facility] Address [address] [place] [address] Care Team Providers Care Slitter And Cutter Operator Name Role Phone Manuela Montero MD Primary Care Provider [phone] [facility], Pcp Primary Care Provider Unavailabl e Reason for Referral * EXTERNAL (Routine) - Authorized/Booked Specialty Diagnoses / Procedures Referred By Contac t Referred To Contact Dermatology Procedures REFERRAL TO DERMATOLOGY Manuela Montero MD [address] [place] [address] [facility] Dermatology & Laser Referral ID Status Reason Start Date Expiration Date V isits Requested Visits Authorized [id number] Authorized/B ooked 04/20/2022 08/12/2022 1 1 Reason for Visit * Reason Onset Date Comments REFERRAL 04/15/2022 Jewelry Dipper Feedback 04/15/2022 Sylvester Guillen Encounter Details Date Type Department Care Team Description 04/15/2022 Telephone Adult Medicine [address] [phone] Manuela Montero MD [address] [place] [phone] REFERRAL; Jewelry Dipper Feedback (Sylvester Guillen) Social History Tobacco Use Types Packs/Day Years [...] suspected to have Coronavirus/COVID-19? No / Unsure 04/13/2022 10:01 AM EST documented as of this encounter Miscellaneous Notes * Telephone Encounter - Zenaida Green - 04/15/2022 2:33 PM EST Please review this patients new referral request. The referral has been pended. Please complete thefollowing: If approved> sign order If denied>please give instructions and route to your practice nursing pool. Practice nurse should inform referrals and the patient if denied. * Telephone Encounter - Vero Davies - 04/15/2022 11:43 AM EST What insurance does the patient have today? Payor: [place]/PPO POS / Plan: PPO $25 PERU [id number] / Product Type: PPO [id number] Effective 11/13/08: [facility] will not retro referral requests over 90 days. If request is for this please instruct patient to call the 800# on their insurance card to appeal. Do not submit a request. Referrals cannot be processed if the insurance is not accurate. If the insurance listed above in red is NO BILLING INFORMATION FOUND FOR THIS ENCOUTNER The patients correct insurance must be obtained and registered in [facility] or their referral can not be processed. Is this a retro request? NO. If yes for what date of service do you need the retro referral? N/A Who is calling to request this referral? Patient If the caller is not the patient, what is their name? N/A Ask the patient WHO referred them to this specialty: Patient self referred FIRST and LAST NAME of SPECIALIST PATIENT is seeing: Sylvester irvin What specialty is this? Dermatology DIAGNOSIS Patient is being seen for (Not a body part or a procedure): severe eczema Have you seen this SPECIALIST for this PROBLEM/DX before?NO If YES, when: Have you checked REVIEW or the APPT DESK to see if this referral has already been done or has visits left? YES Is this visit:Initial Visit Address of Specialist:[address] [place] [address] Phone # of Specialist: [phone] Fax #: (if applicable): Does patient have an appointment scheduled?: NO Date of appointment- (including a retro-request): Is this appointment related to: Not MVA, WC or Surgery related documented in this encounter Plan of Treatment Not on file documented as of this encounter Visit Diagnoses Not on filedocumented in this encounter Additional Health Concerns Infection Onset Date Last Indicated Resolved Time COVID-19 11/15/2022 11/16/2022 documented as of this encounter Care Teams Slitter And Cutter Operator Relationship Specialty Start Date End Date Manuela Montero MD [address] [place] [address] PCP - General Internal Medicine 03/09/22 08/08/23 Stella Giles [address] [place] [address] PCP - General Internal Medicine 08/09/23 documented as of this encounter
--- OUTSIDE RECORDS SUMMARY | 2024-04-26 11:50 | XMS_ITS | Encounter Summary ---
Author Organization [facility] Address [address] [place] [address] Care Team Providers Care Product Marketing Executive Name Role Phone Blanca Isaacs MD Primary Care Provider Vj Jackson MD Primary Care Provider [phone] Manuela Montero MD Primary Care Provider [phone] [facility], Pcp Primary Care Provider [facility] e Encounter Details Date Type Department Care Team Description 03/08/2016 Molding Manager Report Medical Records [address] [place] [address] Mari Morris MD Social History Tobacco Use Types Packs/Day [...] documented as of this encounter Care Teams Product Marketing Executive Relationship Specialty Start Date End Date Blanca Isaacs MD PCP - General 01/17/06 07/22/21 Vj Bowden MD [address] [place] [address] PCP - General Internal Medicine 07/23/21 03/08/22 Manuela Montero MD [address] [place] [address] PCP - General Internal Medicine 03/09/22 08/08/23 Stella Giles [address] [place] [address] PCP - General Internal Medicine 08/09/23 documented as of this encounter
--- OUTSIDE RECORDS SUMMARY | 2024-04-26 11:50 | XMS_ITS | Encounter Summary ---
Author Organization [facility] Address [address] [place] [address] Care Team Providers Care Hydrographer Name Role Phone Blanca Isaacs MD Primary Care Provider Vj Jackson MD Primary Care Provider [phone] Manuela Montero MD Primary Care Provider [phone] [facility], Pcp Primary Care Provider [facility] e Encounter Details Date Type Department Care Team Description 02/09/2012 Business Doc Medical Records [address] [place] [address] Abstract, Provider Social History Tobacco Use Types [...] documented as of this encounter Care Teams Hydrographer Relationship Specialty Start Date End Date Blanca Isaacs MD PCP - General 01/17/06 07/22/21 Vj Bowden MD [address] [place] [address] PCP - General Internal Medicine 07/23/21 03/08/22 Manuela Montero MD [address] [place] [address] PCP - General Internal Medicine 03/09/22 08/08/23 Chan, Stella [address] [place] [address] PCP - General Internal Medicine 08/09/23 documented as of this encounter
--- OUTSIDE RECORDS SUMMARY | 2024-04-26 11:51 | XMS_ITS | Encounter Summary ---
Author Organization [facility] Address [address] [place] [address] Care Team Providers Care Certified Pharmacist Assistant Name Role Phone Blanca Isaacs MD Primary Care Provider Vj Jackson MD Primary Care Provider [phone] Manuela Montero MD Primary Care Provider [phone] [facility], Pcp Primary Care Provider [facility] Reason for Visit * Reason Onset Date Comments Orders Call 04/30/2019 Encounter Details Date Type Department Care Team Description 04/30/2019 Telephone Adult [address] [address] Blanca Isaacs MD Orders Call Social History Tobacco Use Types Packs/Day Years [...] encounter Miscellaneous Notes * Telephone Encounter - Marielos Barney L.P.NJanneth - 04/30/2019 10:54 AM EDT [facility] Home INR Monitoring has been requested by the patient. The patient has been stable, compliant and meets specified criteria. The patient's supporting diagnosis is recurrent bilateral DVT's, varicose veins [facility] INR Home Monitoring Agreement/Compliance letter has been discussed, , printed from [employer] and and given to the patient Please sign pended order if in agreement Paperwork sent to you interoffice for your signature. Please send back to me, thank you. documented in this encounter Plan of Treatment Not on file documented as of this encounter Procedures Procedure Name Priority Date/Time Associated Diagnosis Comments [facility] HOME MONITORING AUTHORIZATION Routine 05/02/2019 8:15 AM EDT Deep vein thrombosis (DVT) of proximal lower extremity, unspecified chronicity, unspecified laterality (HCC) documented in this encounter Visit Diagnoses Diagnosis Deep vein thrombosis (DVT) of proximal lower extremity, unspecified chronicity, unspecified laterality (HCC)- Primary documented in this encounter Additional Health Concerns Infection Onset Date Last Indicated Resolved Time COVID-19 11/15/2022 11/16/2022 documented as of this encounter Care Teams Certified Pharmacist Assistant Relationship Specialty Start Date End Date Blanca Isaacs MD PCP - General 01/17/06 07/22/21 Vj Bowden MD [address] [place] [address] PCP - General Internal Medicine 07/23/21 03/08/22 Manuela Montero MD [address] [place] [address] PCP - General Internal Medicine 03/09/22 08/08/23 [facility] [address] [place] [address] PCP - General Internal Medicine 08/09/23 documented as of this encounter
--- OUTSIDE RECORDS SUMMARY | 2024-04-26 11:51 | XMS_ITS | Encounter Summary ---
Author Organization [facility] Address [address] [place] [address] Care Team Providers Care Enterprise Applications Manager Name Role Phone Blanca Isaacs MD Primary Care Provider Vj Jackson MD Primary Care Provider [phone] Manuela Montero MD Primary Care Provider [phone] [facility], Pcp Primary Care Provider [facility] e Encounter Details Date Type Department Care Team Description 11/01/2016 Business Doc Medical Records [address] [place] [address] Abstract, Provider Social History Tobacco Use Types [...] documented as of this encounter Care Teams Enterprise Applications Manager Relationship Specialty Start Date End Date Blanca Isaacs MD PCP - General 01/17/06 07/22/21 Vj Bowden MD [address] [place] [address] PCP - General Internal Medicine 07/23/21 03/08/22 Manuela Montero MD [address] [place] [address] PCP - General Internal Medicine 03/09/22 08/08/23 Chan, Stella [address] [place] [address] PCP - General Internal Medicine 08/09/23 documented as of this encounter
--- OUTSIDE RECORDS SUMMARY | 2024-04-26 11:51 | XMS_ITS | Encounter Summary ---
Author Organization [facility] Address [address] [place] [address] Care Team Providers Care Hyperion Developer Name Role Phone Blanca Isaacs MD Primary Care Provider Vj Jackson MD Primary Care Provider [phone] Manuela Montero MD Primary Care Provider [phone] [facility], Pcp Primary Care Provider [facility] e Encounter Details Date Type Department Care Team Description 07/23/2009 Professor Of Engineering Report Medical Records [address] [place] [address] Christoph Pulido Social History Tobacco Use Types Packs/Day Years [...] documented as of this encounter Care Teams Hyperion Developer Relationship Specialty Start Date End Date Blanca Isaacs MD PCP - General 01/17/06 07/22/21 Vj Bowden MD [address] [place] [address] PCP - General Internal Medicine 07/23/21 03/08/22 Manuela Montero MD [address] [place] [address] PCP - General Internal Medicine 03/09/22 08/08/23 [facility], Stella [address] [place] [address] PCP - General Internal Medicine 08/09/23 documented as of this encounter
--- OUTSIDE RECORDS SUMMARY | 2024-04-26 11:51 | XMS_ITS | Encounter Summary ---
Author Organization [facility] Address [address] [place] [address] Care Team Providers Care Supervisor Shop Name Role Phone Blanca Isaacs MD Primary Care Provider Vj Jackson MD Primary Care Provider [phone] Manuela Montero MD Primary Care Provider [phone] [facility], Pcp Primary Care Provider [facility] e Encounter Details Date Type Department Care Team Description 01/27/[address] [address] Blanca Isaacs MD Social History Tobacco Use Types Packs/Day [...] encounter Miscellaneous Notes * Telephone Encounter - Evaristo Flores L.P.N. - 01/27/2019 10:40 AM EST Patient jovita called BS and cancelled her 10 AM Appt said to BS unable to make it in Patient showed up at 10:25 Said her son made a mistake No Appt available at this time Rebooked with Dr. Duffy for 1:30 documented in this encounter Plan of Treatment Not on file documented as of this encounter Visit Diagnoses Not on filedocumented in this encounter Additional Health Concerns Infection Onset Date Last Indicated Resolved Time COVID-19 11/15/2022 11/16/2022 documented as of this encounter Care Teams Supervisor Shop Relationship Specialty Start Date End Date Blanca Isaacs MD PCP - General 01/17/06 07/22/21 Vj Bowden MD [address] [place] [address] PCP - General Internal Medicine 07/23/21 03/08/22 Manuela Montero MD [address] [place] [address] PCP - General Internal Medicine 03/09/22 08/08/[address] [address] PCP - General Internal Medicine 08/09/23 documented as of this encounter
--- OUTSIDE RECORDS SUMMARY | 2024-04-26 11:51 | XMS_ITS | Encounter Summary ---
Author Organization [employer] [facility] Address [address] [place] [address] Care Team Providers Care People Greeter Name Role Phone Blanca Isaacs MD Primary Care Provider Vj Jackson MD Primary Care Provider [phone] Manuela Montero MD Primary Care Provider [phone] [facility], Pcp Primary Care Provider [facility] e Encounter Details Date Type Department Care Team Description 06/07/2011 [facility] Medical Records [address] [place] [address] Bahman Person Social History Tobacco Use Types Packs/Day Years [...] documented as of this encounter Care Teams People Greeter Relationship Specialty Start Date End Date Blanca Isaacs MD PCP - General 01/17/06 07/22/21 Vj Bowden MD [address] [place] [address] PCP - General Internal Medicine 07/23/21 03/08/22 Manuela Montero MD [address] [place] [address] PCP - General Internal Medicine 03/09/22 08/08/23 [facility], Stella [address] [place] [address] PCP - General Internal Medicine 08/09/23 documented as of this encounter
--- OUTSIDE RECORDS SUMMARY | 2024-04-26 11:51 | XMS_ITS | Encounter Summary ---
Author Organization [facility] Address [address] [place] [address] Care Team Providers Care Loss Control Consultant Name Role Phone Blanca Isaacs MD Primary Care Provider Vj Jackson MD Primary Care Provider [phone] Manuela Montero MD Primary Care Provider [phone] [facility], Pcp Primary Care Provider [facility] e Encounter Details Date Type Department Care Team Description 06/10/2014 Garment Sorter Report Medical Records [address] [place] [address] Jea-nPaul Conner MD Social History Tobacco Use Types Packs/Day [...] documented as of this encounter Care Teams Loss Control Consultant Relationship Specialty Start Date End Date Blanca Isaacs MD PCP - General 01/17/06 07/22/21 Vj Bowden MD [address] [place] [address] PCP - General Internal Medicine 07/23/21 03/08/22 Manuela Montero MD [address] [place] [address] PCP - General Internal Medicine 03/09/22 08/08/23 [facility], Stella [address] [place] [address] PCP - General Internal Medicine 08/09/23 documented as of this encounter
--- OUTSIDE RECORDS SUMMARY | 2024-04-26 11:51 | XMS_ITS | Encounter Summary ---
Author Organization [facility] Address [address] [place] [address] Care Team Providers Care Tunnel Heading Supervisor Name Role Phone Blanca Isaacs MD Primary Care Provider Vj Jackson MD Primary Care Provider [phone] Manuela Montero MD Primary Care Provider [phone] [facility], Pcp Primary Care Provider [facility] e Encounter Details Date Type Department Care Team Description 03/06/2019 [facility] Controlled Substance Contract Medical Records [address] [place] [address] Abstract, Provider Social History Tobacco Use Types [...] documented as of this encounter Care Teams Tunnel Heading Supervisor Relationship Specialty Start Date End Date Blanca Isaacs MD PCP - General 01/17/06 07/22/21 Vj Bowden MD [address] [place] [address] PCP - General Internal Medicine 07/23/21 03/08/22 Manuela Montero MD [address] [place] [address] PCP - General Internal Medicine 03/09/22 08/08/23 [facility], Stella [address] [place] [address] PCP - General Internal Medicine 08/09/23 documented as of this encounter
--- OUTSIDE RECORDS SUMMARY | 2024-04-26 11:51 | XMS_ITS | Encounter Summary ---
Author Organization [facility] [facility] Address [address] [place] [address] Care Team Providers Care Engineering Group Leader Name Role Phone Blanca Isaacs MD Primary Care Provider Vj Jackson MD Primary Care Provider [phone] Manuela Montero MD Primary Care Provider [phone] [facility], Pcp Primary Care Provider [facility] e Encounter Details Date Type Department Care Team Description 02/24/2014 [facility] Report Medical Records [address] [place] [address] Abstract, Provider Social History Tobacco Use Types [...] documented as of this encounter Care Teams Engineering Group Leader Relationship Specialty Start Date End Date Blanca Isaacs MD PCP - General 01/17/06 07/22/21 Vj Bowden MD [address] [place] [address] PCP - General Internal Medicine 07/23/21 03/08/22 Manuela Montero MD [address] [place] [address] PCP - General Internal Medicine 03/09/22 08/08/23 [facility], Stella [address] [place] [address] PCP - General Internal Medicine 08/09/23 documented as of this encounter
--- OUTSIDE RECORDS SUMMARY | 2024-04-26 11:51 | XMS_ITS | Encounter Summary ---
Author Organization [employer] [facility] Address [address] [place] [address] Care Team Providers Care Pitch Filler Name Role Phone Vj Bowden MD Primary Care Provider [phone] Manuela Montero MD Primary Care Provider [phone] [facility], Pcp Primary Care Provider Unavailabl e Reason for Visit * Reason Onset Date Comments Prior Authorization 09/28/2021 Encounter Details Date Type Department Care Team Description 09/28/2021 Telephone Adult Medicine [address] [id number] Donna Miller PA-C [address] [place] [address] [phone] Prior Authorization Social History Tobacco Use Types Packs/Day Years [...] encounter Miscellaneous Notes * Telephone Encounter - Roseanne Knapp M.A. - 11/22/2021 12:32 PM EDT Prior authorization for the diclofenac was approved Approved from 11/22/21 until 11/21/24 Approval faxed to [facility] at [phone] * Telephone Encounter - Roseanne Knapp M.A. - 11/22/2021 12:14 PM EDT Prior authorization was looking for more information. Information provided and faxed back today * Telephone Encounter - Roseanne Knapp M.A. - 11/22/2021 9:22 AM EDT The original pa was denied , more information was needed. 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 * Telephone Encounter - Nasreen Adler M.A. 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 Regional Prior Authorizations Ext [phone] Fax: [phone] reply back to p [phone] Prior Auth isamar * Telephone Encounter - Liliya Roy - 09/28/2021 2:25 PM EDT Prior Authorization for Medication-do not complete and send this encounter unless you have the fax from the pharmacy. Is this a Cover My Meds request: Yes -- Fay Code [id number] Name of Medication Diclofenac Sodium (Voltaren) Dose of Medication 1 % Gel What is the RX # from the faxed refill? How does patient take this med? Route: Apply 4 g topically 4 times daily as needed for Other (pain). Apply up to 4 g to each affected area up to 4 times daily; maximum dose per area: 16 g/day; maximum total body dose - Apply externally What Pharmacy did the fax come from: [facility] fax #: [phone] [employer] Information from fax: What Prescription Plan does the patient have? BIN/PCN if applicable: Cardholder ID: Person Code: Relationship Code: Help desk phone: documented in this encounter Plan of Treatment Not on file documented as of this encounter Visit Diagnoses Not on filedocumented in this encounter Additional Health Concerns Infection Onset Date Last Indicated Resolved Time COVID-19 11/15/2022 11/16/2022 documented as of this encounter Care Teams Pitch Filler Relationship Specialty Start Date End Date Vj Bowden MD [address] [place] [address] 32363 PCP - General Internal Medicine 07/23/21 03/08/22 Manuela Montero MD [address] [place] [address] PCP - General Internal Medicine 03/09/22 08/08/23 Chan, Stella [address] [place] [address] 78094 PCP - General Internal Medicine 08/09/23 documented as of this encounter
--- OUTSIDE RECORDS SUMMARY | 2024-04-26 11:51 | XMS_ITS | Encounter Summary ---
Author Organization [employer] [facility] Address [address] [place] [address] Care Team Providers Care Extrusion Operator Name Role Phone Blanca Isaacs MD Primary Care Provider Vj Jackson MD Primary Care Provider [phone] Manuela Montero MD Primary Care Provider [phone] [facility], Pcp Primary Care [facility] Encounter Details Date Type Department Care Team Description 03/11/2020 Retail Merchandiser Report Medical Records [address] [place] [address] Christiano Garza MD Social History Tobacco Use Types Packs/Day Years Used Date Smoking Tobacco: Never Smokeless Tobacco: Never Alcohol Use Standard Drinks/Week Comments No 0 (1 standard drink = 0.6 oz pur e alcohol) Sex Assigned at Date Recorded Not on file Job Start Date Occupation Industry Not on file Not on file Not on file COVID-19 Exposure Response Date Recorded In the last month, have you been in contact with someone who was confirmed or suspected to have Coronavirus / COVID-19? No / Unsure 03/10/2020 3:51 PM EST documented as of this encounter Plan of Treatment Not on file documented as of this encounter Visit Diagnoses Not on filedocumented in this encounter Additional Health Concerns Infection Onset Date Last Indicated Resolved Time COVID-19 11/15/2022 11/16/2022 documented as of this encounter Care Teams Extrusion Operator Relationship Specialty Start Date End Date Blanca Isaacs MD PCP - General 01/17/06 07/22/21 Vj Bowden MD [address] [place] [address]99 PCP - General Internal Medicine 07/23/21 03/08/22 Manuela Montero MD [address] [place] [address] 18839 PCP - General Internal Medicine 03/09/22 08/08/[address] [address] PCP - General Internal Medicine 08/09/23 documented as of this encounter
--- OUTSIDE RECORDS SUMMARY | 2024-04-26 11:51 | XMS_ITS | Encounter Summary ---
Author Organization [email or web address] [facility] Address [address] [place] [address] Care Team Providers Care Cognos Report Developer Name Role Phone Blanca Isaacs MD Primary Care Provider Vj Jackson MD Primary Care Provider [phone] Manuela Montero MD Primary Care Provider [phone] [facility], Pcp Primary Care Provider [facility] Encounter Details Date Type Department Care Team Description 11/14/2016 PNO Controlled Substance Contract Medical Records [address] [place] [address] Abstract, Provider Social History Tobacco Use Types [...] documented as of this encounter Care Teams Cognos Report Developer Relationship Specialty Start Date End Date Blanca Isaacs MD PCP - General 01/17/06 07/22/21 Vj Bowden MD [address] [place] [address] 09252 PCP - General Internal Medicine 07/23/21 03/08/22 Manuela Montero MD [address] [place] [address] PCP - General Internal Medicine 03/09/22 08/08/23 [facility], Stella [address] [place] [address] 63[address] PCP - General Internal Medicine 08/09/23 documented as of this encounter
--- OUTSIDE RECORDS SUMMARY | 2024-04-26 11:51 | XMS_ITS | Encounter Summary ---
Author Organization [facility] Address [address] [place] [address] Care Team Providers Care Fire Control Assistant Name Role Phone Blanca Isaacs MD Primary Care Provider Vj Jackson MD Primary Care Provider [phone] Manuela Montero MD Primary Care Provider [phone] [facility], Pcp Primary Care Provider [facility] Encounter Details Date Type Department Care Team Description 07/23/2009 Hand Spring Former Report Medical Records [address] [place] [address] Keysha Ji NP Social History Tobacco Use [...] documented as of this encounter Care Teams Fire Control Assistant Relationship Specialty Start Date End Date Blanca Isaacs MD PCP - General 01/17/06 07/22/21 Vj Bowden MD [address] [place] [address] PCP - General Internal Medicine 07/23/21 03/08/22 Manuela Montero MD [address] [place] [address] PCP - General Internal Medicine 03/09/22 08/08/23 [facility], Stella [address] [place] [address] PCP - General Internal Medicine 08/09/23 documented as of this encounter
--- OUTSIDE RECORDS SUMMARY | 2024-04-26 11:51 | XMS_ITS | Encounter Summary ---
Author Organization [employer] [facility] Address [address] [place] [address] Care Team Providers Care Rn Dermatology Name Role Phone Blanca Isaacs MD Primary Care Provider Vj Jackson MD Primary Care Provider [phone] Manuela Montero MD Primary Care Provider [phone] [facility], Pcp Primary Care [facility] Encounter Details Date Type Department Care Team Description 06/05/2011 [facility] Medical Records [address] [place] [address] Kahlil Corral MD Social History Tobacco Use Types Packs/Day [...] documented as of this encounter Care Teams Rn Dermatology Relationship Specialty Start Date End Date Blanca Isaacs MD PCP - General 01/17/06 07/22/21 Vj Bowden MD [address] [place] [address] 115[address] PCP - General Internal Medicine 07/23/21 03/08/22 Manuela Montero MD [address] [place] [address] PCP - General Internal Medicine 03/09/22 08/08/23 Chan, Stella [address] [place] [address]79 PCP - General Internal Medicine 08/09/23 documented as of this encounter
--- OUTSIDE RECORDS SUMMARY | 2024-04-26 11:51 | XMS_ITS | Encounter Summary ---
Author Organization [employer] [facility] Address [address] [place] [address] Care Team Providers Care Transmitter Engineer In Charge Name Role Phone Blanca Isaacs MD Primary Care Provider Vj Jackson MD Primary Care Provider [phone] Manuela Montero MD Primary Care Provider [phone] [facility], Pcp Primary Care Provider [facility] e Encounter Details Date Type Department Care Team Description 05/27/2014 Business Doc Medical Records [address] [place] [address] Abstract, Provider Social History Tobacco Use Types [...] documented as of this encounter Care Teams Transmitter Engineer In Charge Relationship Specialty Start Date End Date Blanca Isaacs MD PCP - General 01/17/06 07/22/21 Vj Bowden MD [address] [place] [address] PCP - General Internal Medicine 07/23/21 03/08/22 Manuela Montero MD [address] [place] [address] PCP - General Internal Medicine 03/09/22 08/08/23 Chan, Stella [address] [place] [address]37 PCP - General Internal Medicine 08/09/23 documented as of this encounter
--- OUTSIDE RECORDS SUMMARY | 2024-04-26 11:51 | XMS_ITS | Encounter Summary ---
Author Organization [employer] [facility] Address [address] [place] [address] Care Team Providers Care Public Transit Trolley Driver Name Role Phone Blanca Isaacs MD Primary Care Provider Vj Jackson MD Primary Care Provider [phone] Manuela Montero MD Primary Care Provider [phone] [facility], Pcp Primary Care Provider [facility] e Encounter Details Date Type Department Care Team Description 03/25/2010 Psychiatric Clinical Nurse Specialist Report Medical Records [address] [place] [address] Keysha Ji NP Social History Tobacco Use [...] as of this encounter Care Teams Public Transit Trolley Driver Relationship Specialty Start Date End Date Blanca Isaacs MD PCP - General 01/17/06 07/22/21 Vj Bowden MD [address] [place] [address] PCP - General Internal Medicine 07/23/21 03/08/22 Manuela Montero MD [address] [place] [address] PCP - General Internal Medicine 03/09/22 08/08/23 [facility], Stella [address] [place] [address] PCP - General Internal Medicine 08/09/23 documented as of this encounter
--- OUTSIDE RECORDS SUMMARY | 2024-04-26 11:51 | XMS_ITS | Encounter Summary ---
Author Organization [facility] Address [address] [place] [address] Care Team Providers Care On Site Coordinator Name Role Phone Blanca Isaacs MD Primary Care Provider Vj Jackson MD Primary Care Provider [phone] Manuela Montero MD Primary Care Provider [phone] [facility], Pcp Primary Care Provider [facility] e Encounter Details Date Type Department Care Team Description 05/19/2011 Door Closer Report Medical Records [address] [place] [address] Winston Conklin MD Social History Tobacco Use Types Packs/Day [...] documented as of this encounter Care Teams On Site Coordinator Relationship Specialty Start Date End Date Blanca Isaacs MD PCP - General 01/17/06 07/22/21 Vj Bowden MD [address] [place] [address] PCP - General Internal Medicine 07/23/21 03/08/22 Manuela Montero MD [address] [place] [address] PCP - General Internal Medicine 03/09/22 08/08/23 Chan, Stella [address] [place] [address] PCP - General Internal Medicine 08/09/23 documented as of this encounter
--- OUTSIDE RECORDS SUMMARY | 2024-04-26 11:51 | XMS_ITS | Encounter Summary ---
Author Organization [employer] [facility] Address [address] [place] [address] Care Team Providers Care Contact Lens Edge Buffer Name Role Phone Manuela Montero MD Primary Care Provider [phone] [facility], Pcp Primary Care Provider Unavailabl e Encounter Details Date Type Department Care Team Description 07/05/2022 Tosser Report Medical Records [address] [place] [address] Kory Huddleston MD Social History Tobacco Use Types Packs/Day [...] suspected to have Coronavirus/COVID-19? No / Unsure 06/20/2022 1:36 PM EDT documented as of this encounter Plan of Treatment Not on file documented as of this encounter Visit Diagnoses Not on filedocumented in this encounter Additional Health Concerns Infection Onset Date Last Indicated Resolved Time COVID-19 11/15/2022 11/16/2022 documented as of this encounter Care Teams Contact Lens Edge Buffer Relationship Specialty Start Date End Date Manuela Montero MD [address] [place] [address] PCP - General Internal Medicine 03/09/22 08/08/23 [facility], Pcp [address] [place] [address] PCP - General Internal Medicine 08/09/23 documented as of this encounter
--- OUTSIDE RECORDS SUMMARY | 2024-04-26 11:51 | XMS_ITS | Encounter Summary ---
Author Organization [employer] [facility] Address [address] [place] [address] Care Team Providers Care Dental Associate Name Role Phone Blanca Isaacs MD Primary Care Provider Vj Jackson MD Primary Care Provider [phone] Manuela Montero MD Primary Care Provider [phone] [facility], Pcp Primary Care Provider [facility] e Encounter Details Date Type Department Care Team Description 02/27/2019 Fashion Designer Report Medical Records [address] [place] [address] Maria G Miranda Np Social History Tobacco Use Types Packs/Day Years [...] documented as of this encounter Care Teams Dental Associate Relationship Specialty Start Date End Date Blanca Isaacs MD PCP - General 01/17/06 07/22/21 Vj Bowden MD [address] [place] [address]387 PCP - General Internal Medicine 07/23/21 03/08/22 Manuela Montero MD [address] [place] [address] PCP - General Internal Medicine 03/09/22 08/08/23 [facility], Stella [address] [place] [address] PCP - General Internal Medicine 08/09/23 documented as of this encounter
--- OUTSIDE RECORDS SUMMARY | 2024-04-26 11:51 | XMS_ITS | Encounter Summary ---
Author Organization [facility] Address [address] [place] [address] Care Team Providers Care Can Repairer Name Role Phone Blanca Isaacs MD Primary Care Provider Vj Jackson MD Primary Care Provider [phone] Manuela Montero MD Primary Care Provider [phone] [facility], Pcp Primary Care [facility] Reason for Visit * Reason Onset Date Comments medication problems 10/18/2017 Encounter Details Date Type Department Care Team Description 10/18/2017 Telephone Adult [address] [address] Blanca Isaacs MD medication problems Social History Tobacco Use Types Packs/Day Years [...] encounter Miscellaneous Notes * Telephone Encounter - Nasreen Adler M.A. - 10/23/2017 2:55 PM EDT duplicate * Telephone Encounter - Grace Barraza M.A. - 10/23/2017 2:45 PM EDT Think this may be a duplicate * Telephone Encounter - Meenu Kelley - 10/18/2017 2:30 PM EDT Who is calling? The patient Name of the medication hydrocodone-acetaminophen (NORCO) 7.5-325 MG per tablet What is the specific problem or interaction? Patient states medication needs prior auth If the patient is having a problem [...] documented as of this encounter Care Teams Can Repairer Relationship Specialty Start Date End Date Blanca Isaacs MD PCP - General 01/17/06 07/22/21 Vj Bowden MD [address] [place] [address]183 PCP - General Internal Medicine 07/23/21 03/08/22 Manuela Montero MD [address] [place] [address] PCP - General Internal Medicine 03/09/22 08/08/[address] [address] PCP - General Internal Medicine 08/09/23 documented as of this encounter
--- OUTSIDE RECORDS SUMMARY | 2024-04-26 11:51 | XMS_ITS | Encounter Summary ---
Author Organization [employer] [facility] Address [address] [place] [address] Care Team Providers Care Channel Marketing Coordinator Name Role Phone Blanca Isaacs MD Primary Care Provider Vj Jackson MD Primary Care Provider [phone] Manuela Montero MD Primary Care Provider [phone] [facility], Pcp Primary Care Provider [facility] e Encounter Details Date Type Department Care Team Description 03/05/2020 [facility] Medical Records [address] [place] [address] Abstract, Provider Social History Tobacco Use Types [...] have Coronavirus / COVID-19? No / Unsure 03/02/2020 1:02 PM EST documented as of this encounter Plan of Treatment Not on file documented as of this encounter Visit Diagnoses Not on filedocumented in this encounter Additional Health Concerns Infection Onset Date Last Indicated Resolved Time COVID-19 11/15/2022 11/16/2022 documented as of this encounter Care Teams Channel Marketing Coordinator Relationship Specialty Start Date End Date Blanca Isaacs MD PCP - General 01/17/06 07/22/21 Vj Bowden MD [address] [place] [address] PCP - General Internal Medicine 07/23/21 03/08/22 Manuela Montero MD [address] [place] [address] PCP - General Internal Medicine 03/09/22 08/08/[address] [address] PCP - General Internal Medicine 08/09/23 documented as of this encounter
--- OUTSIDE RECORDS SUMMARY | 2024-04-26 11:51 | XMS_ITS | Encounter Summary ---
Author Organization [employer] [facility] Address [address] [place] [address] Care Team Providers Care Actuarial Science Teacher Name Role Phone Blanca Isaacs MD Primary Care Provider Vj Jackosn MD Primary Care Provider [phone] Manuela Montero MD Primary Care Provider [phone] [facility], Pcp Primary Care Provider [facility] e Encounter Details Date Type Department Care Team Description 04/22/2016 Business Doc Medical Records [address] [place] [address] Abstract, Provider Social History Tobacco Use Types [...] documented as of this encounter Care Teams Actuarial Science Teacher Relationship Specialty Start Date End Date Blanca Isaacs MD PCP - General 01/17/06 07/22/21 Vj Bowden MD [address] [place] [address] PCP - General Internal Medicine 07/23/21 03/08/22 Manuela Montero MD [address] [place] [address] PCP - General Internal Medicine 03/09/22 08/08/23 Chan, Stella [address] [place] [address] PCP - General Internal Medicine 08/09/23 documented as of this encounter
--- OUTSIDE RECORDS SUMMARY | 2024-04-26 11:51 | XMS_ITS | Encounter Summary ---
Author Organization [facility] Address [address] [place] [address] Care Team Providers Care Steam Turbine Operator Name Role Phone Manuela Montero MD Primary Care Provider [phone] [facility], Pcp Primary Care Provider Unavailabl e Encounter Details Date Type Department Care Team Description 06/16/2022 Orders Only Adult Medicine [address] [address] Manuela Montero MD [address] [place] [address] [phone] Social History Tobacco Use Types Packs/Day Years [...] suspected to have Coronavirus/COVID-19? No / Unsure 06/13/2022 2:53 PM EDT documented as of this encounter Plan of Treatment Not on file documented as of this encounter Visit Diagnoses Not on filedocumented in this encounter Additional Health Concerns Infection Onset Date Last Indicated Resolved Time COVID-19 11/15/2022 11/16/2022 documented as of this encounter Care Teams Steam Turbine Operator Relationship Specialty Start Date End Date Manuela Montero MD [address] [place] [address] PCP - General Internal Medicine 03/09/22 08/08/23 [facility], Stella [address] [place] [address] PCP - General Internal Medicine 08/09/23 documented as of this encounter
--- OUTSIDE RECORDS SUMMARY | 2024-04-26 11:51 | XMS_ITS | Encounter Summary ---
Author Organization [employer] [facility] Address [address] [place] [address] Care Team Providers Care Fish Processor Name Role Phone Blanca Isaacs MD Primary Care Provider jV Jackson MD Primary Care Provider [phone] Manuela Montero MD Primary Care Provider [phone] [facility], Pcp Primary Care Provider [facility] e Encounter Details Date Type Department Care Team Description 05/04/2011 Housekeeping Staff Report Medical Records [address] [place] [address] Matthew Ramírez Social History Tobacco Use Types Packs/Day Years [...] documented as of this encounter Care Teams Fish Processor Relationship Specialty Start Date End Date Blanca Isaacs MD PCP - General 01/17/06 07/22/21 Vj Bowden MD [address] [place] [address]69 PCP - General Internal Medicine 07/23/21 03/08/22 Manuela Montero MD [address] [place] [address] PCP - General Internal Medicine 03/09/22 08/08/23 [facility], Stella [address] [place] [address] PCP - General Internal Medicine 08/09/23 documented as of this encounter
--- OUTSIDE RECORDS SUMMARY | 2024-04-26 11:51 | XMS_ITS | Encounter Summary ---
Author Organization [employer] [facility] Address [address] [place] [address] Care Team Providers Care Crime Prevention Worker Name Role Phone Blanca Isaacs MD Primary Care Provider Vj Jackson MD Primary Care Provider [phone] Manuela Montero MD Primary Care Provider [phone] [facility], Pcp Primary Care Provider [facility] e Encounter Details Date Type Department Care Team Description 11/11/2013 Gyroscopic Instrument Mechanic Report Medical Records [address] [place] [address] Maria G Miranda Np Social History Tobacco [...] documented as of this encounter Care Teams Crime Prevention Worker Relationship Specialty Start Date End Date Blanca Isaacs MD PCP - General 01/17/06 07/22/21 Vj Bowden MD [address] [place] [address] PCP - General Internal Medicine 07/23/21 03/08/22 Manuela Montero MD [address] [place] [address] PCP - General Internal Medicine 03/09/22 08/08/23 [facility], Stella [address] [place] [address] PCP - General Internal Medicine 08/09/23 documented as of this encounter
--- OUTSIDE RECORDS SUMMARY | 2024-04-26 11:52 | XMS_ITS | Patient Health Record ---
Author Organization [employer] Address [address] [place] [address] [address] [place] [address] Support Name Relationship Address Phone Kianna Prasad Guarantor Unknown Allergies Allergen (clinical drug ingredient) Drug/Non Drug Allergy documented on EMR Reaction Allergy Type Onset Date Status aspirin Aspirin Unknown Drug Allergy Active oxycodone Oxycodone Unknown Drug Allergy Active Shellfish (FN) Shellfish-derived Products Unknown Drug Allergy Active Reason For Referral No Information Medications Medication SIG (Take, Route, Frequency, Duration) Notes Start Date End Date Status HYDROcodone-Acetaminophen 7.5-325 MG 1 tablet as needed Orally every 6 hrs Active Aquacel Ag Foam 10 X12 as directed Externally Active Hydrocortisone 2.5 % 1 application Externally Once a day Active Ascorbic Acid 500 MG 1 tablet Orally Onc e a day Active Gabapentin 300 MG 1 capsule Orally Onc e a day Active Albuterol Sulfate 108 (90 Base) MCG/ACT 1 puff as needed Inhalation every 4 hrs Active hydroCHLOROthiazide 12.5 MG 1 capsule in the morning Orally Once a day Active Acetaminophen 500 MG 1 capsule as needed Orally every 6 hrs Active Esomeprazole Magnesium 20 MG 1 capsule O rally Once a day Active Famotidine 20 MG 1 tablet at bedtime as needed Orally Once a day Active Qsymia 7.5-46 MG 1 capsule Orally Onc e a day for 30 days 06/02/2021 Active Loratadine 10 MG 1 tablet Orally Once a day Active Diclofenac Active EPINEPHrine 0.3 MG/0.3ML as directed Injection Active Fluticasone Propionate HFA 1 10 MCG/ACT 2 puffs Inhalation Twice a day Active Fluticasone Propionate 50 MCG/ACT 1 spray in each nostril Nasally Once a day Active Ferrous Sulfate 325 (65 Fe) MG 1 tablet Orally Once a day Active Social History Tobacco Use: Social History Observation Description Date Details (start date - stop date) Never Smoker NA - NA Tobacco Use/Smoking Question Answer Notes Are you a nonsmoker Alcohol Screen (Audit-C) Question Answer Notes Did you have a drink containing alcohol in the p ast year? No Points 0 Interpretation Negative Problems Problem Type SNOMED Code ICD Code Onset Dates Problem Status W/U Status Risk Notes Problem Morbid obesity (disorder) (483012194) Morbid (severe) obesity due to excess calories (E66.01) Active confirmed Problem Epilepsy, unspecified, intractable, without status epilepticus (G40.919) Active confirmed Problem Obstructive sleep apnea syndrome (disorder) (34149954) Obstructive sleep apnea (adult) (pediatric) (G47.33) Active confirmed Problem Polyneuropathy (26158493) Polyneuropathy, unspecified (G62.9) Active confirmed Problem Embolism from thrombosis of vein of lower extremity (687139656) 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) Active confirmed Problem Seasonal allergic rhinitis (993673978) Other seasonal allergic rhinitis (J30.2) Active confirmed Problem Mild intermittent asthma (265175434) Mild intermittent asthma, uncomplicated (J45.20) Active confirmed Problem Gastro-esophageal reflux disease without esophagitis (095622067) Gastro-esophagea l reflux disease without esophagitis (K21.9) Active confirmed Problem Osteoarthritis (146490828) Polyosteoarthrit is, unspecified (M15.9) Active confirmed Plan Of Treatment No Information Insurance Providers Payer Name Payer Address Payer Phone Subscriber Number Group Number Insured Name Patient Relationship to Insured Coverage Start Date Coverage End Date [facility] [address] [place] [phone] [id number] Kianna Scherer Self - patient is the insured Medicare [address] KENNETHELIUD ANNETTEGIOVANI [phone] [id number] Kianna Scherer Self - patient is the insured [place] [address] [place] [address] [phone] [id number] Kianna Scherer Self - patient is the insured Medical (General) History Medical History History ICD Code asthma hypertension GERD neuropathy seasonal allergies osteoarthritis anemia JUNE on CPAP 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
--- OUTSIDE RECORDS SUMMARY | 2024-04-26 11:52 | XMS_ITS | Encounter Summary ---
Author Organization [employer] [facility] Address [address] [place] [address] Care Team Providers Care Fabrication Mig Welder Name Role Phone Blanca Isaacs MD Primary Care Provider Vj Jackson MD Primary Care Provider [phone] Manuela Montero MD Primary Care Provider [phone] [facility], Pcp Primary [facility] Encounter Details Date Type Department Care Team Description 11/07/2013 Tablet Tester Report Medical Records [address] [place] [address] Nilson Plata MD Social History Tobacco Use Types Packs/Day [...] documented as of this encounter Care Teams Fabrication Mig Welder Relationship Specialty Start Date End Date Blanca Isaacs MD PCP - General 01/17/06 07/22/21 Vj Bowden MD [address] [place] [address] PCP - General Internal Medicine 07/23/21 03/08/22 Manuela Montero MD [address] [place] [address] PCP - General Internal Medicine 03/09/22 08/08/23 [facility], Stella [address] [place] [address] PCP - General Internal Medicine 08/09/23 documented as of this encounter
--- OUTSIDE RECORDS SUMMARY | 2024-04-26 11:52 | XMS_ITS | Encounter Summary ---
Author Organization [facility] Address [address] [place] [address] Care Team Providers Care Large Sheetfed Press Operator Name Role Phone Blanca Isaacs MD Primary Care Provider Vj Jackson MD Primary Care Provider [phone] Manuela Montero MD Primary Care Provider [phone] [facility], Pcp Primary Care Provider Unavailabl e Encounter Details Date Type Department Care Team Description 02/01/2021 [facility] Medical Records [address] [place] [address] Abstract, Provider Social History Tobacco Use Types [...] have Coronavirus / COVID-19? No / Unsure 01/19/2021 9:11 AM EST documented as of this encounter Plan of Treatment Not on file documented as of this encounter Visit Diagnoses Not on filedocumented in this encounter Additional Health Concerns Infection Onset Date Last Indicated Resolved Time COVID-19 11/15/2022 11/16/2022 documented as of this encounter Care Teams Large Sheetfed Press Operator Relationship Specialty Start Date End Date Blanca Isaacs MD PCP - General 01/17/06 07/22/21 Vj Bowden MD [address] [place] [address] PCP - General Internal Medicine 07/23/21 03/08/22 Manuela Montero MD [address] [place] [address] PCP - General Internal Medicine 03/09/22 08/08/[address] [address] PCP - General Internal Medicine 08/09/23 documented as of this encounter
--- OUTSIDE RECORDS SUMMARY | 2024-04-26 11:52 | XMS_ITS | Encounter Summary ---
Author Organization [employer] [facility] Address [address] [place] [address] Care Team Providers Care Labor/Excavator Name Role Phone Blanca Isaacs MD Primary Care Provider Vj Jackson MD Primary Care Provider [phone] Manuela Montero MD Primary Care Provider [phone] [facility], Pcp Primary Care Provider Unavailabl e Reason for Visit * Reason Comments E-prescribe Rx Request Encounter Details Date Type Department Care Team Description 03/09/2021 Refill Adult Medicine B - [address] [address] Lori Dia, PAMarijaC E-prescribe Rx Request Social History Tobacco Use [...] have Coronavirus / COVID-19? No / Unsure 02/22/2021 11:17 AM EST documented as of this encounter Miscellaneous Notes * Telephone Encounter - Sallie Alvarez M.A. - 03/10/2021 11:39 AM EST Lab Results Component Value Date WBC 6.2 01/16/2020 HGB 12.0 01/16/2020 HCT 40.7 01/16/2020 MCV 89.6 01/16/2020 PLTCT 270 01/16/2020 Lab Results Component Value Date NA 142 12/01/2020 K 4.4 12/01/2020 CO2 29 12/01/2020 CL 108 12/01/2020 BUN 12 12/01/2020 CREAT 0.54 12/01/2020 GLU 83 12/01/2020 CA 9.0 12/01/2020 GFR > 60 12/01/2020 JAMES 02/22/21 NOV 05/24/21 * Telephone Encounter - Mario Campbell - 03/10/2021 11:34 AM EST Patient would like script to be: E-PRESCRIBED/FAXED TO PHARMACY WHEN WAS THE PATIENT'S LAST APPOINTMENT IN ADULT MEDICINE? 02/22/2021 WHEN WAS THE LAST TIME THE PATIENT SAW THEIR PCP? Same as above Does patient have an upcoming appointment? Yes 05/24/2021 (THE MEDICATION REQUESTED IS ON THE MED LIST ABOVE) All of the medications requested were on the CURRENT MEDS list Did you check the Pharmacy information above?: YES Patient wants: 90 -day supply Is this a mail order prescription request ? NO If the refill is from a FAXED refill request what is the RX # listed on the fax? N/A Patients current insurance carrier is: [place] / Plan: PPO $0 [id number] / Product Type: PPO [id number] documented in this encounter Plan of Treatment Not on file documented as of this encounter Visit Diagnoses Not on filedocumented in this encounter Additional Health Concerns Infection Onset Date Last Indicated Resolved Time COVID-19 11/15/2022 11/16/2022 documented as of this encounter Care Teams Labor/Excavator Relationship Specialty Start Date End Date Blanca Isaacs MD PCP - General 01/17/06 07/22/21 Vj Bowden MD [address] [place] [address] PCP - General Internal Medicine 07/23/21 03/08/22 Manuela Montero MD [address] [place] [address] PCP - General Internal Medicine 03/09/22 08/08/[address] [address] PCP - General Internal Medicine 08/09/23 documented as of this encounter
--- OUTSIDE RECORDS SUMMARY | 2024-04-26 11:52 | XMS_ITS | Encounter Summary ---
Author Organization [facility] Address [address] [place] [address] Care Team Providers Care Nurse Researcher Name Role Phone Manuela Montero MD Primary Care Provider [phone] [facility] Primary Care Provider Unavailabl e Reason for Visit * Reason Comments E-prescribe Rx Request Encounter Details Date Type Department Care Team Description 06/25/2023 Refill Adult Medicine [address] [id number] Manuela Montero MD [address] [place] [address] [phone] E-prescribe Rx Request Social History Tobacco Use [...] encounter Miscellaneous Notes * Telephone Encounter - Eddie Arrington M.A. - 06/30/2023 9:33 PM EDT Last ov 05/04/23 no future appt Lab Results Component Value Date NA 145 05/04/2023 K 4.3 05/04/2023 CO2 29 05/04/2023 CL 110 05/04/2023 BUN 13 05/04/2023 CREAT 0.62 05/04/2023 GLU 87 05/04/2023 CA 9.2 05/04/2023 GFR 107 05/04/2023 documented in this encounter Plan of Treatment Not on file documented as of this encounter Visit Diagnoses Not on filedocumented in this encounter Additional Health Concerns Infection Onset Date Last Indicated Resolved Time COVID-19 11/15/2022 11/16/2022 documented as of this encounter Care Teams Nurse Researcher Relationship Specialty Start Date End Date Manuela Montero MD [address] [place] [address] PCP - General Internal Medicine 03/09/22 08/08/23 [facility], [address] [address] PCP - General Internal Medicine 08/09/23 documented as of this encounter
--- OUTSIDE RECORDS SUMMARY | 2024-04-26 11:52 | XMS_ITS | Encounter Summary ---
Author Organization [facility] Address [address] [place] [address] Care Team Providers Care Senior Formulation Scientist Name Role Phone Blanca Isaacs MD Primary Care Provider Vj Jackson MD Primary Care Provider [phone] Manuela Montero MD Primary Care Provider [phone] [facility], Pcp Primary Care Provider Unavailabl e Reason for Visit * Reason Comments E-prescribe Rx Request Encounter Details Date Type Department Care Team Description 09/03/2020 Refill Adult Medicine - [address] [address] Blanca Isaacs MD E-prescribe Rx Request Social [...] have Coronavirus / COVID-19? No / Unsure 08/31/2020 9:19 AM EDT documented as of this encounter Miscellaneous Notes * Telephone Encounter - Starr Morales M.A. - 09/03/2020 12:00 PM EDT JAMES 08/31/2020 F/U appt 12/01/2020 Lab Results Component Value Date NA 141 11/16/2019 K 4.4 11/16/2019 CO2 30 11/16/2019 CL 107 11/16/2019 BUN 13 11/16/2019 CREAT 0.59 11/16/2019 GLU 84 11/16/2019 CA 9.3 11/16/2019 GFR > 60 11/16/2019 * Telephone Encounter - Mario Burkett - 09/03/2020 11:24 AM EDT Patient would like script to be: E-PRESCRIBED/FAXED TO PHARMACY WHEN WAS THE PATIENT'S LAST APPOINTMENT IN ADULT MEDICINE? 08/31/2020 WHEN WAS THE LAST TIME THE PATIENT SAW THEIR PCP? 06/29/2020 Does patient have an upcoming appointment? Yes 12/01/2020 (THE MEDICATION REQUESTED IS ON THE MED [...] N/A Patients current insurance carrier is: Payor[place] / Plan: PPO $0 [id number] / Product Type: PPO [id number] documented in this encounter Plan of Treatment Not on file documented as of this encounter Visit Diagnoses Not on filedocumented in this encounter Additional Health Concerns Infection Onset Date Last Indicated Resolved Time COVID-19 11/15/2022 11/16/2022 documented as of this encounter Care Teams Senior Formulation Scientist Relationship Specialty Start Date End Date Blanca Isaacs MD PCP - General 01/17/06 07/22/21 Vj Bowden MD [address] [place] [address] PCP - General Internal Medicine 07/23/21 03/08/22 Manuela Montero MD [address] [place] [address] PCP - General Internal Medicine 03/09/22 08[facility]08[facility]23 [facility] [address] [place] [address] PCP - General Internal Medicine 08/09/23 documented as of this encounter
--- OUTSIDE RECORDS SUMMARY | 2024-04-26 11:52 | XMS_ITS | Encounter Summary ---
Author Organization [employer] [facility] Address [address] [place] [address] Care Team Providers Care Coin Rolling Machine Operator Name Role Phone Blanca Isaacs MD Primary Care Provider Vj Jackson MD Primary Care Provider [phone] Manuela Montero MD Primary Care Provider [phone] [facility], Pcp Primary Care Provider [facility] Encounter Details Date Type Department Care Team Description 04/08/2011 Letter Carrier Report Medical Records [address] [place] [address] Keysha Ji NP Social History Tobacco Use [...] documented as of this encounter Care Teams Coin Rolling Machine Operator Relationship Specialty Start Date End Date Blanca Isaacs MD PCP - General 01/17/06 07/22/21 Vj Bowden MD [address] [place] [address] PCP - General Internal Medicine 07/23/21 03/08/22 Manuela Montero MD [address] [place] [address] PCP - General Internal Medicine 03/09/22 08/08/23 Stella Giles [address] [place] [address] PCP - General Internal Medicine 08/09/23 documented as of this encounter
--- OUTSIDE RECORDS SUMMARY | 2024-04-26 11:52 | XMS_ITS | Encounter Summary ---
Author Organization [facility] Address [address] [place] [address] Care Team Providers Care Professor Of Food Biochemistry Name Role Phone Blanca Isaacs MD Primary Care Provider Vj Jackson MD Primary Care Provider [phone] Manuela Montero MD Primary Care Provider [phone] [facility], Pcp Primary Care [facility] Encounter Details Date Type Department Care Team Description 03/21/2011 Freight Team Associate Report Medical Records [address] [place] [address] Franki Marie PA-C Social History Tobacco Use Types Packs/Day Years [...] documented as of this encounter Care Teams Professor Of Food Biochemistry Relationship Specialty Start Date End Date Blanca Isaacs MD PCP - General 01/17/06 07/22/21 Vj Bowden MD [address] [place] [address] PCP - General Internal Medicine 07/23/21 03/08/22 Manuela Montero MD [address] [place] [address] PCP - General Internal Medicine 03/09/22 08/08/23 Stella Giles [address] [place] [address] PCP - General Internal Medicine 08/09/23 documented as of this encounter
--- OUTSIDE RECORDS SUMMARY | 2024-04-26 11:52 | XMS_ITS | Encounter Summary ---
Author Organization [employer] [facility] Address [address] [place] [address] Care Team Providers Care Bundle Collector Name Role Phone Blanca Isaacs MD Primary Care Provider Vj Jackson MD Primary Care Provider [phone] Manuela Montero MD Primary Care Provider [phone] [facility], Pcp Primary Care Provider Unavailabl e Encounter Details Date Type Department Care Team Description 01/06/2021 SCAN Medical Records [address] [place] [address] Abstract, Provider Social History Tobacco Use Types [...] have Coronavirus / COVID-19? No / Unsure 01/06/2021 10:18 AM EST documented as of this encounter Plan of Treatment Not on file documented as of this encounter Visit Diagnoses Not on filedocumented in this encounter Additional Health Concerns Infection Onset Date Last Indicated Resolved Time COVID-19 11/15/2022 11/16/2022 documented as of this encounter Care Teams Bundle Collector Relationship Specialty Start Date End Date Blanca Isaacs MD PCP - General 01/17/06 07/22/21 Vj Bowden MD [address] [place] [address] PCP - General Internal Medicine 07/23/21 03/08/22 Manuela Montero MD [address] [place] [address] PCP - General Internal Medicine 03/09/22 08/08/[address] [address] PCP - General Internal Medicine 08/09/23 documented as of this encounter
--- OUTSIDE RECORDS SUMMARY | 2024-04-26 11:52 | XMS_ITS | Encounter Summary ---
Author Organization [facility] Address [address] [place] [address] Care Team Providers Care Firebreak Cutter Name Role Phone Blanca Isaacs MD Primary Care Provider Vj Jackson MD Primary Care Provider [phone] Manuela Montero MD Primary Care Provider [phone] [facility], Pcp Primary Care Provider [facility] Encounter Details Date Type Department Care Team Description 09/11/2013 Manager Of Corporate Communications Report Medical Records [address] [place] [address] Petra Anderson Social History Tobacco Use Types Packs/Day Years [...] documented as of this encounter Care Teams Firebreak Cutter Relationship Specialty Start Date End Date Blanca Isaacs MD PCP - General 01/17/06 07/22/21 Vj Bowden MD [address] [place] [address] PCP - General Internal Medicine 07/23/21 03/08/22 Manuela Montero MD [address] [place] [address] PCP - General Internal Medicine 03/09/22 08/08/23 Stella Giles [address] [place] [address] PCP - General Internal Medicine 08/09/23 documented as of this encounter
--- OUTSIDE RECORDS SUMMARY | 2024-04-26 11:52 | XMS_ITS | Encounter Summary ---
Author Organization [facility] Address [address] [place] [address] Care Team Providers Care Classified Copy Control Clerk Name Role Phone Blanca Isaacs MD Primary Care Provider Vj Jackson MD Primary Care Provider [phone] Manuela Montero MD Primary Care Provider [phone] [facility], Pcp Primary Care Provider Unavailabl e Encounter Details Date Type Department Care Team Description 04/13/2021 Business Doc Medical Records [address] [place] [address] Abstract, Provider Social History Tobacco Use Types [...] have Coronavirus / COVID-19? No / Unsure 04/06/2021 11:55 AM EST documented as of this encounter Plan of Treatment Not on file documented as of this encounter Visit Diagnoses Not on filedocumented in this encounter Additional Health Concerns Infection Onset Date Last Indicated Resolved Time COVID-19 11/15/2022 11/16/2022 documented as of this encounter Care Teams Classified Copy Control Clerk Relationship Specialty Start Date End Date Blanca Isaacs MD PCP - General 01/17/06 07/22/21 Vj Bowden MD [address] [place] [address] PCP - General Internal Medicine 07/23/21 03/08/22 Manuela Montero MD [address] [place] [address] PCP - General Internal Medicine 03/09/22 08/08/[address] [address] PCP - General Internal Medicine 08/09/23 documented as of this encounter
--- OUTSIDE RECORDS SUMMARY | 2024-04-26 11:52 | XMS_ITS | Encounter Summary ---
Author Organization [facility] Address [address] [place] [address] Care Team Providers Care Cook Chief Name Role Phone Blanca Isaacs MD Primary Care Provider Vj Jackson MD Primary Care Provider [phone] Manuela Montero MD Primary Care Provider [phone] [facility], Pcp Primary Care Provider Unavailabl e Reason for Visit * Reason Comments E-prescribe Rx Request Encounter Details Date Type Department Care Team Description 06/23/2021 Refill Adult Medicine B - [address] [address] Socorro Duckworth PA-C E-prescribe Rx Request Social History Tobacco Use [...] suspected to have Coronavirus/COVID-19? No / Unsure 06/16/2021 4:34 PM EDT documented as of this encounter Miscellaneous Notes * Telephone Encounter - Donna Miller PA-C - 06/23/2021 4:09 PM EDT Duplicate * Telephone Encounter - Julia Prescott M.A. - 06/23/2021 2:40 PM EDT Last office visit 02/22/21 Next office visit 09/28/21 Lab Results Component Value Date NA 142 04/06/2021 K 4.3 04/06/2021 CO2 25 04/06/2021 CL 111 04/06/2021 BUN 16 04/06/2021 CREAT 0.61 04/06/2021 GLU 86 04/06/2021 CA 9.0 04/06/2021 GFR > 60 04/06/2021 * Telephone Encounter - Germaine Shepard - 06/23/2021 2:18 PM EDT Patient would like script to be: E-PRESCRIBED/FAXED TO PHARMACY WHEN WAS THE PATIENT'S LAST APPOINTMENT IN ADULT MEDICINE? 02/22/21 WHEN WAS THE LAST TIME THE PATIENT SAW THEIR PCP? Same as above Does patient have an upcoming appointment? Yes 09/28/21 (THE MEDICATION REQUESTED IS ON THE MED [...] [place] / Plan: PPO $0 [id number] / Product Type: PPO [id number] documented in this encounter Plan of Treatment Not on file documented as of this encounter Visit Diagnoses Not on filedocumented in this encounter Additional Health Concerns Infection Onset Date Last Indicated Resolved Time COVID-19 11/15/2022 11/16/2022 documented as of this encounter Care Teams Cook Chief Relationship Specialty Start Date End Date Blanca Isaacs MD PCP - General 01/17/06 07/22/21 Vj Bowden MD [address] [place] [address] PCP - General Internal Medicine 07/23/21 03/08/22 Manuela Montero MD [address] [place] [address] PCP - General Internal Medicine 03/09/22 08/08/[address] [address] PCP - General Internal Medicine 08/09/23 documented as of this encounter
--- OUTSIDE RECORDS SUMMARY | 2024-04-26 11:52 | XMS_ITS | Encounter Summary ---
Author Organization [employer] [facility] Address [address] [place] [address] Care Team Providers Care Tree Girdler Name Role Phone Blanca Isaacs MD Primary Care Provider Vj Jackson MD Primary Care Provider [phone] Manuela Montero MD Primary Care Provider [phone] [facility], Pcp Primary Care Provider [facility] e Encounter Details Date Type Department Care Team Description 08/14/2013 Leather Stripping Machine Operator Report Medical Records [address] [place] [address] Jamarcus Perez MD Social History Tobacco Use [...] documented as of this encounter Care Teams Tree Girdler Relationship Specialty Start Date End Date Blanca Isaacs MD PCP - General 01/17/06 07/22/21 Vj Bowden MD [address] [place] [address] PCP - General Internal Medicine 07/23/21 03/08/22 Manuela Montero MD [address] [place] [address] PCP - General Internal Medicine 03/09/22 08/08/23 Stella Giles [address] [place] [address] PCP - General Internal Medicine 08/09/23 documented as of this encounter
--- OUTSIDE RECORDS SUMMARY | 2024-04-26 11:52 | XMS_ITS | Encounter Summary ---
Author Organization [facility] Address [address] [place] [address] Care Team Providers Care Film Examiner Name Role Phone Blanca Isaacs MD Primary Care Provider Vj Jackson MD Primary Care Provider [phone] Manuela Montero MD Primary Care Provider [phone] [facility], Pcp Primary Care Provider Unavailabl e Reason for Visit * Reason Comments E-prescribe Rx Request Encounter Details Date Type Department Care Team Description 01/16/2019 Refill Adult Medicine [address] [address] Blanca Isaacs MD E-prescribe Rx Request Social [...] encounter Miscellaneous Notes * Telephone Encounter - Julia Prescott M.A. - 01/16/2019 10:10 AM EST Last filled on 10/20/17 with 4 refills. Should the pt still be on this? * Telephone Encounter - Meenu Kelley - 01/16/2019 8:53 AM EST Patient would like script to be: E-PRESCRIBED/FAXED TO PHARMACY WHEN WAS THE PATIENT'S LAST APPOINTMENT IN ADULT MEDICINE? 11/23/18 WHEN WAS THE LAST TIME THE PATIENT SAW THEIR PCP? Same as above Does patient have an upcoming appointment? No-[facility] due to refill request. Appt due (THE MEDICATION REQUESTED IS ON THE MED [...] Payor: BUTCH / Plan: PPO $0 CHELI [id number] / Product Type: PPO [id number] Insurance ID #: [id number] documented in this encounter Plan of Treatment Not on file documented as of this encounter Visit Diagnoses Not on filedocumented in this encounter Additional Health Concerns Infection Onset Date Last Indicated Resolved Time COVID-19 11/15/2022 11/16/2022 documented as of this encounter Care Teams Film Examiner Relationship Specialty Start Date End Date Blanca Isaacs MD PCP - General 01/17/06 07/22/21 Vj Bowden MD [address] [place] [address] PCP - General Internal Medicine 07/23/21 03/08/22 Manuela Montero MD [address] [place] [address] PCP - General Internal Medicine 03/09/22 08/08/23 [facility], Pcp [address] [place] [id number] PCP - General Internal Medicine 08/09/23 documented as of this encounter
--- OUTSIDE RECORDS SUMMARY | 2024-04-26 11:52 | XMS_ITS | Encounter Summary ---
Author Organization [facility] Address [address] [place] [address] Care Team Providers Care Underwear Finisher Name Role Phone Blanca Isaacs MD Primary Care Provider Vj Jackson MD Primary Care Provider [phone] Manuela Montero MD Primary Care Provider [phone] [facility], Pcp Primary Care Provider Unavailabl e Reason for Visit * Reason Onset Date Comments Faxed Order 10/21/2020 Encounter Details Date Type Department Care Team Description 10/21/2020 Telephone Adult Medicine [address] [address] Rob Ardon [address] [address] Faxed Order Social History Tobacco Use Types Packs/Day Years [...] have Coronavirus / COVID-19? No / Unsure 10/15/2020 10:44 AM EDT documented as of this encounter Miscellaneous Notes * Telephone Encounter - Liliya Roy - 10/21/2020 9:33 AM EDT Faxed order from [facility]. Please sign and fax. documented in this encounter Plan of Treatment Not on file documented as of this encounter Visit Diagnoses Not on filedocumented in this encounter Additional Health Concerns Infection Onset Date Last Indicated Resolved Time COVID-19 11/15/2022 11/16/2022 documented as of this encounter Care Teams Underwear Finisher Relationship Specialty Start Date End Date Blanca Isaacs MD PCP - General 01/17/06 07/22/21 Vj Bowden MD [address] [place] [address] PCP - General Internal Medicine 07/23/21 03/08/22 Manuela Montero MD [address] [place] [address] PCP - General Internal Medicine 03/09/22 08/08/23 Chan, Stella [address] [place] [address] PCP - General Internal Medicine 08/09/23 documented as of this encounter
== END 2024-04-26 10:50 | disposition home or self-care (01) ==
PROVIDERS: PCP Nurse Practitioner Family; Visit Provider Hospitalist
DX: J45.40 Moderate persistent asthma, uncomplicated (principal); Z86.711 Personal history of pulmonary embolism; G47.33 Obstructive sleep apnea (adult) (pediatric); T78.40XD Allergy, unspecified, subsequent encounter
CPT/HCPCS: 99214

== ENCOUNTER → 2024-04-26 10:28 | Outpatient (BNVA) | payer BC, MEDICARE, SELFPAY | PROVIDERS: PCP Internal Medicine; Visit Provider Hospitalist | DX: J45.40 Moderate persistent asthma, uncomplicated (principal); G47.33 Obstructive sleep apnea (adult) (pediatric); T78.40XD Allergy, unspecified, subsequent encounter; X58.XXXD Exposure to other specified factors, subsequent encounter; Z79.01 Long term (current) use of anticoagulants; Z86.711 Personal history of pulmonary embolism | CPT/HCPCS: 99212 ==

== ENCOUNTER 2025-01-07 05:47 | Emergency (ER) | payer SELFPAY ==
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
[2025-01-07 05:53] VITALS: BP 120/69; PULSE 66; RESP 20; TEMP 36.5; O2SAT 98; BMI 32.3
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
[2025-01-07] MEDS: HYDROcodone Bit/Acetam 5/325 TABLET 1 TAB PO (06:24)
--- OUTSIDE RECORDS SUMMARY | 2025-01-07 06:34 | XMS_ITS | Encounter Summary ---
Author Organization [employer] [facility] Address [address] [place] [address] Care Team Providers Care Offset Proof Press Operator Name Role Phone Blanca Isaacs MD Primary Care Provider Vj Jackson MD Primary Care Provider [phone] Manuela Montero MD Primary Care Provider [phone] [facility], Pcp Primary Care [facility] Encounter Details Date Type Department Care Team Description 09/22/2009 Clothing Manager Report Medical Records [address] [place] [id number] Keysha Ji NP Social History Tobacco Use [...] documented as of this encounter Care Teams Offset Proof Press Operator Relationship Specialty Start Date End Date Blanca Isaacs MD PCP - General 01/17/06 07/22/21 Vj Bowden MD [address] [place] [address] PCP - General Internal Medicine 07/23/21 03/08/22 Manuela Montero MD [address] [place] [address] PCP - General Internal Medicine 03/09/22 08/08/23 [facility], Stella [address] [place] [id number] PCP - General Internal Medicine 08/09/23 documented as of this encounter
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
--- OUTSIDE RECORDS SUMMARY | 2025-01-07 06:34 | XMS_ITS | Encounter Summary ---
Author Organization [email or web address] [facility] Address [address] [place] [address] Care Team Providers Care Stove Refinisher Name Role Phone Blanca Isaacs MD Primary Care Provider Vj Jackson MD Primary Care Provider [phone] Manuela Montero MD Primary Care Provider [phone] [facility], Pcp [facility] Care [facility] Encounter Details Date Type Department Care Team Description 09/10/2018 Release of Information Medical Records [address] [place] [id number] Abstract, Provider Social History Tobacco Use Types [...] documented as of this encounter Care Teams Stove Refinisher Relationship Specialty Start Date End Date Blanca Isaacs MD PCP - General 01/17/06 07/22/21 Vj Bowden MD [address] [place] [address] PCP - General Internal Medicine 07/23/21 03/08/22 Manuela Montero MD [address] [place] [address] PCP - General Internal Medicine 03/09/22 08/08/23 [facility], Stella [address] [place] [address] PCP - General Internal Medicine 08/09/23 documented as of this encounter
--- OUTSIDE RECORDS SUMMARY | 2025-01-07 06:34 | XMS_ITS | Encounter Summary ---
Author Organization [employer] [facility] Address [address] [place] [address] Care Team Providers Care Physical Aerodynamicist Name Role Phone Blanca Isaacs MD Primary Care Provider Vj Jackson MD Primary Care Provider [phone] Manuela Montero MD Primary Care Provider [phone] [facility], Pcp Primary Care [facility] Encounter Details Date Type Department Care Team Description 12/21/2010 Older Worker Specialist Report Medical Records [address] [place] [address] Keysha Ji NP Social History Tobacco Use [...] documented as of this encounter Care Teams Physical Aerodynamicist Relationship Specialty Start Date End Date Blanca Isaacs MD PCP - General 01/17/06 07/22/21 Vj Bowden MD [address] [place] [address] PCP - General Internal Medicine 07/23/21 03/08/22 Manuela Montero MD [address] [place] [address] PCP - General Internal Medicine 03/09/22 08/08/23 Stella Giles [address] [place] [address] PCP - General Internal Medicine 08/09/23 documented as of this encounter
--- OUTSIDE RECORDS SUMMARY | 2025-01-07 06:34 | XMS_ITS | Clinical Summary ---
Author Organization [address] Address [address] [place] [phone] Phone Care Team Providers Care Fuel Storage Technician Name Role Phone Manuela Montero MD Primary Care Provider [phone] Allergies Active Allergy Reactions Criticality Noted Date [...] Appy 1g to skin rash daily 4 Active budesonide-formo teroL (SYMBICORT) 160-4.5 mcg/actuation inhaler [...] (gastroesophageal reflux disease) 5 Recurrent pulmonary emboli (CMS/[facility] V24, CMS/[facility] V28) 03/14/2023 Allergic rhinitis 06/29/2020 Obesity (BMI 30-39.9) [...] Iron deficiency anemia 01/20/2006 Asthma 01/18/2006 Convulsions (CMS/HCC V24, CMS/HCC V28) 6 Overview (02/16/2024): Dr. Stefania Morris DVT (deep venous thrombosis) ([facility] V24, CMS/ CC V28) 01/18/2006 Overview (02/16/2024): on coumadin since 01/18. will need permanent Coumadin history of DVT in past 2004. Migraine 01/18/2006 Overview (02/16/2024): IMO update Immunizations Immunization Administration Dates Next Due Influenza Quadravalent, MDCK , 0.5ml, preservative free (Flucelvax) 6mo and older 11/11/2021,12/01/2020,12/30/2019,04/03 Influenza Quadravalent, MDCK , 0.5ml, with preservative (Flucelvax) 6mo and older 12/22/2017,10/28/2016 Influenza trivalent, 0.5mL, preservative free (Fluarix; FluLaval; Fluzone) ages 6mo and older (Afluria) 3 years and older 11/10/2015,11/05/2014,10/24/2012,10/26,10/19/2010,12/23/2009,11/07/2008 ,11/14/2007,11/15/2006 PPD Test 10/31/2017 [facility] SARS-CoV-2 COVID-19, mRNA, LNP-S, preservative free 06/11/2020,05/20/2020 Pneumococcal polysaccharide 23 valent (Pneumovax 23) 2yo and older 04/24/2013 Td Tetanus diptheria (Tdvax) 7yo and older 01/20/2017 Tdap Tetanus diptheria acell ular pertussis (Boostrix; Adacel) 7yo and older 04/13/2006 Surgical History Surgery Date Site/Laterality Comments OTHER SURGICAL HISTORY PROCEDURE: [place] LIG/TRNSXJ FLP TUBE ABDL/VAG APPR UNI/BI CHOLECYSTECTOMY PROCEDURE: [place] CHOLECYSTECTOMY; COMMENT: UNSURE JUST GALLSTONE OR COMPLETE [...] 07/13/2023 9:48 AM EDT Plan of Treatment Health Maintenance Due Date Last Done Comments Hepatitis B Vaccines (1 of 3 - 19+ 3-dose series) 1989 Pneumococcal Vaccine: 50+ Years (2 of 2 - PCV) 04/24/2014 04/24/2013 RSV Immunization Adult Patients (1 - Risk 50-74 years 1-dose series) 2020 Zoster Vaccines (1 of 2) 2020 Colorectal Cancer Screening: FIT-DNA (Cologuard) 01/16/2022 Hepatitis C Screening 01/16/2022 Medicare Annual Wellness Visit 01/16/2022 Social Influencers of Health Screening 01/16/2022 Depression Screening 02/14/2024 COVID-19 Vaccine ( - season) 2024 06/11/2020, 05/20/2020 Influenza Vaccine (#1) 2024 , 12/01/2020, 12/30/2019, Additional history exists Breast Cancer Screening 04/19/2025 04/20/19 24, 04/13/2022, [...] age to complete this topic Meningococcal B Vaccine Aged Out No l onger eligible based on patient's age to complete this topic RSV Immunization Patients Under 20 months Aged Out No longer eligible based on patient's age to complete this topic Varicella Vaccines Aged Out No longer eligible based on patient's age to complete this topic Procedures Procedure Name Priority Date/Time Associated Diagnosis Comments LIPID PANEL Routine 05/04/2023 SCREENING MAMMOGRAPHY BI 2-VIEW BREAST INC CAD Routine 04/20/2023 10:03 AM EST Encounter for screening mammogram for malignant neoplasm of breast HPV Routine 06/29/2021 HIV SCREENING Routine 10/25/2010 from Last 3 Months or Most Recently Relevant to Health Maintenance Results * Lipid panel (05/04/2023) LDL/HDL Ratio 3 0 - 4 Triglycerides 111 0 - 150 mg/dL Cholesterol 172 0 - 200 mg/dL HDL 52 >=40 mg/dL LDL Cholesterol 98 0 - 100 mg/dL Blood Venous blood specimen / Unknown us Historical Provider LAB BLOOD ORDERABLES Kiersten l [...] are composed of fatty and fibroglandular tissue. No suspicious mass, architectural distortion or suspicious calcifications [...] Result * Cervical Cancer Screening: HPV (06/29/2021) Pathologist [facility] Cervical Cancer Screening: HPV negative,a bstracted Historical Provider HEALTH MAINTENANCE Final Result * HIV Screening (10/25/2010) [facility] HIV Screening ABSTRACTED Result [facility] Historical Provider HEALTH MAINTENANCE Final Result from Last 3 Months or Most Recently Relevant to Health Maintenance Insurance MEDICARE Care Teams Fuel Storage Technician Relationship Specialty Start Date End Date Manuela Montero MD [address] [place] [phone] PCP - General Internal Medicine 04/26/24
--- OUTSIDE RECORDS SUMMARY | 2025-01-07 06:34 | XMS_ITS | Encounter Summary ---
Author Organization [facility] [facility] Address [address] [place] [address] Care Team Providers Care Turret Lathe Operator Name Role Phone Blnaca Isaacs MD Primary Care Provider Vj Jackson MD Primary Care Provider [phone] Manuela Montero MD Primary Care Provider [phone] [facility], Pcp Primary Care Provider Unavailabl e Encounter Details Date Type Department Care Team Description 02/11/2020 Orders Only Medical Records [address] [place] [address] Shu Palafox MD Social History Tobacco Use Types Packs/Day [...] have Coronavirus / COVID-19? No / Unsure 01/20/2020 12:44 PM EST documented as of this encounter Plan of Treatment Not on file documented as of this encounter Procedures Procedure Name Priority Date/Time Associated Diagnosis Comments OUTSIDE PATHOLOGY Routine 02/05/2020 documented in this encounter Results * OUTSIDE PATHOLOGY (02/05/2020) Shu Palafox MD OUTSIDE LAB documented in this encounter Visit Diagnoses Not on filedocumented in this encounter Additional Health Concerns Infection Onset Date Last Indicated Resolved Time COVID-19 11/15/2022 11/16/2022 documented as of this encounter Care Teams Turret Lathe Operator Relationship Specialty Start Date End Date Blanca Isaacs MD PCP - General 01/17/06 07/22/21 Vj Bowden MD [address] [place] [address] PCP - General Internal Medicine 07/23/21 03/08/22 Manuela Montero MD [address] [place] [address] PCP - General Internal Medicine 03/09/22 08/08/[address] [address] PCP - General Internal Medicine 08/09/23 documented as of this encounter
--- OUTSIDE RECORDS SUMMARY | 2025-01-07 06:34 | XMS_ITS | Encounter Summary ---
Author Organization [facility] [facility] Address [address] [place] [address] Care Team Providers Care Relay Shop Supervisor Name Role Phone Blanca Isaacs MD Primary Care Provider Vj Jackson MD Primary Care Provider [phone] Manuela Montero MD Primary Care Provider [phone] [facility], Pcp Primary Care Provider [facility] e Encounter Details Date Type Department Care Team Description 10/21/2010 Business Doc Medical Records [address] [place] [address] Abstract, Provider Social History Tobacco Use Types [...] documented as of this encounter Care Teams Relay Shop Supervisor Relationship Specialty Start Date End Date Blanca Isaacs MD PCP - General 01/17/06 07/22/21 Vj Bowden MD [address] [place] [address] PCP - General Internal Medicine 07/23/21 03/08/22 Manuela Montero MD [address] [place] [address] PCP - General Internal Medicine 03/09/22 08/08/23 Chan, Stella [address] [place] [address] PCP - General Internal Medicine 08/09/23 documented as of this encounter
--- OUTSIDE RECORDS SUMMARY | 2025-01-07 06:34 | XMS_ITS | Encounter Summary ---
Author Organization [employer] [facility] Address [address] [place] [address] Care Team Providers Care Roof Cement And Paint Maker Helper Name Role Phone Blanca Isaacs MD Primary Care Provider Vj Jackson MD Primary Care Provider [phone] Manuela Montero MD Primary Care Provider [phone] [facility], Pcp Primary Care [facility] Reason for Visit * Reason Onset Date Comments medication problems 10/18/2017 Encounter Details Date Type Department Care Team Description 10/18/2017 Telephone Adult [address] [address] Blanca Isaacs MD medication problems Social History [...] documented as of this encounter Care Teams Roof Cement And Paint Maker Helper Relationship Specialty Start Date End Date Blanca Isaacs MD PCP - General 01/17/06 07/22/21 Vj Bowden MD [address] [place] [address] PCP - General Internal Medicine 07/23/21 03/08/22 Manuela Montero MD [address] [place] [address] PCP - General Internal Medicine 03/09/22 08/08/[address] [address] PCP - General Internal Medicine 08/09/23 documented as of this encounter
--- OUTSIDE RECORDS SUMMARY | 2025-01-07 06:34 | XMS_ITS | Encounter Summary ---
Author Organization [facility] [facility] Address [address] [place] [address] Care Team Providers Care Tractor Driver Name Role Phone Blanca Isaacs MD Primary Care Provider Vj Jackson MD Primary Care Provider [phone] Manuela Montero MD Primary Care Provider [phone] [facility], Pcp Primary Care Provider [facility] Encounter Details Date Type Department Care Team Description 05/19/2011 Collision Technician Report Medical Records [address] [place] [address] Winston Conklin MD Social History Tobacco Use [...] documented as of this encounter Care Teams Tractor Driver Relationship Specialty Start Date End Date Blanca Isaacs MD PCP - General 01/17/06 07/22/21 Vj Bowden MD [address] [place] [address] PCP - General Internal Medicine 07/23/21 03/08/22 Manuela Montero MD [address] [place] [address] PCP - General Internal Medicine 03/09/22 08/08/23 Chan, Stella [address] [place] [address] PCP - General Internal Medicine 08/09/23 documented as of this encounter
--- OUTSIDE RECORDS SUMMARY | 2025-01-07 06:34 | XMS_ITS | Clinical Summary ---
Author Organization [facility] Address [address] [place], [place] [id number] Care Team Providers Care Casing Operator Name Role Phone Chata King DO Primary [...] 0 09/05/2018 Active ergocalciferol (VITAMIN D2) capsule 25880 units Take 50,000 Units by mouth. 0 [...] (1 of 2) 2020 Influenza Vaccine (#1) 2024 8, 10/28/2016, 11/10/2015, Additional history exists Pneumococcal Vaccine Aged Out 04/24/2013 No long er eligible based on patient's age to complete this topic RSV Ped < 20 months Aged Out No longe r eligible based on patient's age to complete this topic Care Teams Casing Operator Relationship Specialty Start Date End Date Chata King DO PCP - General Machine Tool Operator 09/07/18
--- OUTSIDE RECORDS SUMMARY | 2025-01-07 06:34 | XMS_ITS | Encounter Summary ---
Author Organization [employer] [facility] Address [address] [place] [address] Care Team Providers Care Hydraulic Rockbreaker Operator Name Role Phone Blanca Isaacs MD Primary Care Provider Vj Jackson MD Primary Care Provider [phone] Manuela Montero MD Primary Care Provider [phone] [facility], Pcp Primary Care Provider [facility] e Encounter Details Date Type Department Care Team Description 11/06/2012 Release of Information Medical Records [address] [place] [address] Abstract, Provider Social History Tobacco Use Types [...] documented as of this encounter Care Teams Hydraulic Rockbreaker Operator Relationship Specialty Start Date End Date Blanca Isaacs MD PCP - General 01/17/06 07/22/21 Vj Bowden MD [address] [place] [address]698 PCP - General Internal Medicine 07/23/21 03/08/22 Manuela Montero MD [address] [place] [address] PCP - General Internal Medicine 03/09/22 08/08/23 [facility], Stella [address] [place] [address] PCP - General Internal Medicine 08/09/23 documented as of this encounter
--- OUTSIDE RECORDS SUMMARY | 2025-01-07 06:34 | XMS_ITS | Encounter Summary ---
Author Organization [employer] [facility] Address [address] [place] [address] Care Team Providers Care Sports Cartoonist Name Role Phone Blanca Isaacs MD Primary Care Provider Vj Jackson MD Primary Care Provider [phone] Manuela Montero MD Primary Care Provider [phone] [facility], Pcp Primary Care Provider [facility] e Reason for Visit * Reason Comments E-prescribe Rx Request Encounter Details Date Type Department Care Team Description 05/11/2018 Refill Adult Medicine [address] [address] Blanca Isaacs MD E-prescribe Rx Request Social [...] an upcoming appointment? No-unable to reach left [facility] to call for appointment due to refill [...] Payor: BUTCH / Plan: PPO $[id number] / Product Type: PPO [id number] Insurance ID #: [id number] documented in this encounter Plan of Treatment Not on file documented as of this encounter Visit Diagnoses Not on filedocumented in this encounter Additional Health Concerns Infection Onset Date Last Indicated Resolved Time COVID-19 11/15/2022 11/16/2022 documented as of this encounter Care Teams Sports Cartoonist Relationship Specialty Start Date End Date Blanca Isaacs MD PCP - General 01/17/06 07/22/21 Vj Bowden MD [address] [place] [address] PCP - General Internal Medicine 07/23/21 03/08/22 Manuela Montero MD [address] [place] [address] PCP - General Internal Medicine 03/09/22 08/08/23 [facility], [address] [address] PCP - General Internal Medicine 08/09/23 documented as of this encounter
--- OUTSIDE RECORDS SUMMARY | 2025-01-07 06:34 | XMS_ITS | Encounter Summary ---
Author Organization [employer] [facility] Address [address] [place] [address] Care Team Providers Care Principal Programmer Name Role Phone Blanca Isaacs MD Primary Care Provider Vj Jackson MD Primary Care Provider [phone] Manuela Montero MD Primary Care Provider [phone] [facility], Pcp Primary Care Provider [facility] Encounter Details Date Type Department Care Team Description 03/27/2012 Forging Machine Operator Report Medical Records [address] [place] [address] Mari Morris MD Social History Tobacco Use [...] documented as of this encounter Care Teams Principal Programmer Relationship Specialty Start Date End Date Blanca Isaacs MD PCP - General 01/17/06 07/22/21 Vj Bowden MD [address] [place] [address] PCP - General Internal Medicine 07/23/21 03/08/22 Manuela Montero MD [address] [place] [address] PCP - General Internal Medicine 03/09/22 08/08/23 Stella Giles [address] [place] [address] PCP - General Internal Medicine 08/09/23 documented as of this encounter
--- OUTSIDE RECORDS SUMMARY | 2025-01-07 06:34 | XMS_ITS | Encounter Summary ---
Author Organization [facility] [facility] Address [address] [place] [address] Care Team Providers Care Consumer Affairs Manager Name Role Phone Blanca Isaacs MD Primary Care Provider Vj Jackson MD Primary Care Provider [phone] Manuela Montero MD Primary Care Provider [phone] [facility], Pcp Primary Care Provider [facility] e Encounter Details Date Type Department Care Team Description 06/05/2011 [facility] Medical Records [address] [place] [address] Tomas Miller Social History Tobacco Use Types Packs/Day Years [...] documented as of this encounter Care Teams Consumer Affairs Manager Relationship Specialty Start Date End Date Blanca Isaacs MD PCP - General 01/17/06 07/22/21 Vj Bowden MD [address] [place] [address] PCP - General Internal Medicine 07/23/21 03/08/22 Manuela Montero MD [address] [place] [address] PCP - General Internal Medicine 03/09/22 08/08/23 Chan, Stella [address] [place] [address] PCP - General Internal Medicine 08/09/23 documented as of this encounter
--- OUTSIDE RECORDS SUMMARY | 2025-01-07 06:34 | XMS_ITS | Encounter Summary ---
Author Organization [facility] Address [address] [place] [address] Care Team Providers Care On Line Csr Name Role Phone Manuela Montero MD Primary Care Provider [phone] [facility] Primary Care Provider Unavailabl e Reason for Visit * Reason Comments E-prescribe Rx Request Encounter Details Date Type Department Care Team Description 11/27/2022 Refill Adult Medicine [address] [phone] Manuela Montero MD [address] [place] [address] [phone] E-prescribe Rx Request Social History Tobacco Use [...] N/A Patients current insurance carrier is: Payor: MEDICARE-eTapestry / Plan: MEDICARE-eTapestry / Product Type: MEDICARE [id number] documented in this encounter Plan of Treatment Not on file documented as of this encounter Visit Diagnoses Not on filedocumented in this encounter Additional Health Concerns Infection Onset Date Last Indicated Resolved Time COVID-19 11/15/2022 11/16/2022 documented as of this encounter Care Teams On Line Csr Relationship Specialty Start Date End Date Manuela Montero MD [address] [place] [address] PCP - General Internal Medicine 03/09/22 08/08/23 [facility], [address] [address] PCP - General Internal Medicine 08/09/23 documented as of this encounter
--- OUTSIDE RECORDS SUMMARY | 2025-01-07 06:34 | XMS_ITS | Encounter Summary ---
Author Organization [facility] Address [address] [place] [address] Care Team Providers Care Mascara Molder Name Role Phone Blanca Isaacs MD Primary Care Provider Vj Jackson MD Primary Care Provider [phone] Manuela Montero MD Primary Care Provider [phone] [facility], Pcp Primary Care Provider [facility] e Encounter Details Date Type Department Care Team Description 11/15/2012 Controlled Substance Plan Medical Records [address] [place] [address] Abstract, Provider Social History Tobacco Use Types [...] documented as of this encounter Care Teams Mascara Molder Relationship Specialty Start Date End Date Blanca Isaacs MD PCP - General 01/17/06 07/22/21 Vj Bowden MD [address] [place] [address] PCP - General Internal Medicine 07/23/21 03/08/22 Manuela Montero MD [address] [place] [address] PCP - General Internal Medicine 03/09/22 08/08/23 [facility], Stella [address] [place] [address] PCP - General Internal Medicine 08/09/23 documented as of this encounter
--- OUTSIDE RECORDS SUMMARY | 2025-01-07 06:34 | XMS_ITS | Encounter Summary ---
Author Organization [facility] Address [address] [place] [address] Care Team Providers Care Table Machine Operator Name Role Phone Manuela Montero MD Primary Care Provider [phone] [facility] Primary Care Provider Unavailabl e Reason for Visit * Reason Comments E-prescribe Rx Request Encounter Details Date Type Department Care Team Description 03/11/2023 Refill Adult Medicine [facility] [address] [place] [address] [phone] Lonnie Santana PA-C [address] [place], [place] [phone] E-prescribe Rx Request Social History Tobacco Use [...] Telephone Encounter - Estefania Cage M.A. - 03/13/2023 12:40 PM EST Lab Results Component Value Date NA 142 02/02/2023 K 4.3 02/02/2023 CO2 28 02/02/2023 CL 110 02/02/2023 BUN 19 02/02/2023 CREAT 0.41 02/02/2023 GLU 94 02/02/2023 CA 9.1 02/02/2023 GFR 118 02/02/2023 Pending appt 05/04/23 Last appt 02/01/23 * Telephone Encounter - Aleksandra Ashley - 03/11/2023 1:50 PM EST Patient would like script to be: E-PRESCRIBED/FAXED TO PHARMACY WHEN WAS THE PATIENT'S LAST APPOINTMENT IN ADULT MEDICINE? 02/01/23 WHEN WAS THE LAST TIME THE PATIENT SAW THEIR PCP? Same as above Does patient have an upcoming appointment? Yes 05/04/23 (THE MEDICATION REQUESTED IS ON THE MED [...] N/A Patients current insurance carrier is: [place] / [place] / Product Type: MEDICARE [id number] documented in this encounter Plan of Treatment Not on file documented as of this encounter Visit Diagnoses Not on filedocumented in this encounter Additional Health Concerns Infection Onset Date Last Indicated Resolved Time COVID-19 11/15/2022 11/16/2022 documented as of this encounter Care Teams Table Machine Operator Relationship Specialty Start Date End Date Manuela Montero MD [address] [place] [address] PCP - General Internal Medicine 03/09/22 08/08/23 [facility], Pcp [address] [place] [address] YOANA VELARDE [address] PCP - General Internal Medicine 08/09/23 documented as of this encounter
--- OUTSIDE RECORDS SUMMARY | 2025-01-07 06:34 | XMS_ITS | Encounter Summary ---
Author Organization [facility] [facility] Address [address] [place] [address] Care Team Providers Care Honey Producer Name Role Phone Blanca Isaacs MD Primary Care Provider Vj Jackson MD Primary Care Provider [phone] Manuela Montero MD Primary Care Provider [phone] [facility], Pcp Primary Care Provider [facility] e Encounter Details Date Type Department Care Team Description 03/06/2019 [facility] Medical Records [address] [place] [address] Abstract, Provider Social History Tobacco Use Types [...] documented as of this encounter Care Teams Honey Producer Relationship Specialty Start Date End Date Blanca Isaacs MD PCP - General 01/17/06 07/22/21 Vj Bowden MD [address] [place] [address] PCP - General Internal Medicine 07/23/21 03/08/22 Manuela Montero MD [address] [place] [address] PCP - General Internal Medicine 03/09/22 08/08/23 [facility], Stella [address] [place] [address] PCP - General Internal Medicine 08/09/23 documented as of this encounter
--- OUTSIDE RECORDS SUMMARY | 2025-01-07 06:34 | XMS_ITS | Encounter Summary ---
Author Organization [facility] [facility] Address [address] [place] [address] Care Team Providers Care Brick Chimney Builder Name Role Phone Blanca Isaacs MD Primary Care Provider Vj Jackson MD Primary Care Provider [phone] Manuela Montero MD Primary Care Provider [phone] [facility], Pcp Primary Care Provider [facility] e Encounter Details Date Type Department Care Team Description 04/16/2015 Cyber Defense Incident Responder Report Medical Records [address] [place] [address] 40631 Jamarcus Perez MD Social History Tobacco Use [...] documented as of this encounter Care Teams Brick Chimney Builder Relationship Specialty Start Date End Date Blanca Isaacs MD PCP - General 01/17/06 07/22/21 Vj Bowden MD [address] [place] [address] 94060 PCP - General Internal Medicine 07/23/21 03/08/22 Manuela Montero MD [address] [place] [address] 78338 PCP - General Internal Medicine 03/09/22 08/08/23 Stella Giles [address] [place] [address] 97668 PCP - General Internal Medicine 08/09/23 documented as of this encounter
--- OUTSIDE RECORDS SUMMARY | 2025-01-07 06:34 | XMS_ITS | Encounter Summary ---
Author Organization [employer] [facility] Address [address] [place] [address] Care Team Providers Care Flattening Press Operator Name Role Phone Blanca Isaacs MD Primary Care Provider Vj Jackson MD Primary Care Provider [phone] Manuela Montero MD Primary Care Provider [phone] [facility], Pcp Primary Care Provider [facility] e Encounter Details Date Type Department Care Team Description 06/07/2011 [facility] Medical Records [address] [place] [address] 72651 Bahman Person Social History Tobacco Use Types [...] documented as of this encounter Care Teams Flattening Press Operator Relationship Specialty Start Date End Date Blanca Isaacs MD PCP - General 01/17/06 07/22/21 Vj Bowden MD [address] [place] [address] 40350 PCP - General Internal Medicine 07/23/21 03/08/22 Manuela Montero MD [address] [place] [address] 01020 PCP - General Internal Medicine 03/09/22 08/08/23 [facility], Stella [address] [place] [address] 84830 PCP - General Internal Medicine 08/09/23 documented as of this encounter
--- OUTSIDE RECORDS SUMMARY | 2025-01-07 06:34 | XMS_ITS | Encounter Summary ---
Author Organization [facility] Address [address] [place] [address] Care Team Providers Care Catalytic Converter Operator Name Role Phone Blanca Isaacs MD Primary Care Provider Vj Jackson MD Primary Care Provider [phone] Manuela Montero MD Primary Care Provider [phone] [facility], Pcp Primary Care Provider [facility] e Encounter Details Date Type Department Care Team Description 04/26/2013 Business Doc Medical Records [address] [place] [address] 05674 Abstract, Provider Social History Tobacco Use Types [...] documented as of this encounter Care Teams Catalytic Converter Operator Relationship Specialty Start Date End Date Blanca Isaacs MD PCP - General 01/17/06 07/22/21 Vj Bowden MD [address] [place] [address] 01118 PCP - General Internal Medicine 07/23/21 03/08/22 Manuela Montero MD [address] [place] [address] 01020 PCP - General Internal Medicine 03/09/22 08/08/23 Chan, Stella [address] [place] [address] 18758 PCP - General Internal Medicine 08/09/23 documented as of this encounter
--- OUTSIDE RECORDS SUMMARY | 2025-01-07 06:34 | XMS_ITS | Encounter Summary ---
Author Organization [employer] [facility] Address [address] [place] [address] Care Team Providers Care Auto Care Center Manager Name Role Phone Blanca Isaacs MD Primary Care Provider Vj Jackson MD Primary Care Provider [phone] Manuela Montero MD Primary Care Provider [phone] [facility], Pcp Primary Care [facility] Encounter Details Date Type Department Care Team Description 09/02/2014 Electronic System Engineer Report Medical Records [address] [place] [address] 77426 Jean-Paul Conner MD Social History Tobacco Use Types [...] documented as of this encounter Care Teams Auto Care Center Manager Relationship Specialty Start Date End Date Blanca Isaacs MD PCP - General 01/17/06 07/22/21 Vj Bowden MD [address] [place] [address] 04494 PCP - General Internal Medicine 07/23/21 03/08/22 Manuela Monetro MD [address] [place] [address] 01020 PCP - General Internal Medicine 03/09/22 08/08/23 [facility], Stella [address] [place] [address] 33246 PCP - General Internal Medicine 08/09/23 documented as of this encounter
--- OUTSIDE RECORDS SUMMARY | 2025-01-07 06:34 | XMS_ITS | Encounter Summary ---
Author Organization [employer] Address [address] [place] [address] Care Team Providers Care Aquatic Facility Manager Name Role Phone Blanca Isaacs MD Primary Care Provider Vj Jackson MD Primary Care Provider [phone] Manuela Montero MD Primary Care Provider [phone] [facility], Pcp Primary Care [facility] Encounter Details Date Type Department Care Team Description 11/11/2013 Power Plant Mechanic Report Medical Records [address] [place] [address] Maria G Miranda Np Social History Tobacco [...] documented as of this encounter Care Teams Aquatic Facility Manager Relationship Specialty Start Date End Date Blanca Isaacs MD PCP - General 01/17/06 07/22/21 Vj Bowden MD [address] [place] [address] 23561 PCP - General Internal Medicine 07/23/21 03/08/22 Manuela Montero MD [address] [place] [address] 01020 PCP - General Internal Medicine 03/09/22 08/08/23 [facility], Stella [address] [place] [address] 40717 PCP - General Internal Medicine 08/09/23 documented as of this encounter
--- OUTSIDE RECORDS SUMMARY | 2025-01-07 06:34 | XMS_ITS | Encounter Summary ---
Author Organization [facility] Address [address] [place] [address] Care Team Providers Care Wildlife Biology Technician Name Role Phone Blanca Isaacs MD Primary Care Provider Vj Jackson MD Primary Care Provider [phone] Manuela Montero MD Primary Care Provider [phone] [facility], Pcp Primary Care Provider [facility] e Encounter Details Date Type Department Care Team Description 04/12/2012 Business Doc Medical Records [address] [place] [address] 35018 Abstract, Provider Social History Tobacco Use Types [...] documented as of this encounter Care Teams Wildlife Biology Technician Relationship Specialty Start Date End Date Blanca Isaacs MD PCP - General 01/17/06 07/22/21 Vj Bowden MD [address] [place] [address] 01118 PCP - General Internal Medicine 07/23/21 03/08/22 Manuela Montero MD [address] [place] [address] 01020 PCP - General Internal Medicine 03/09/22 08/08/23 Chan, Stella [address] [place] [address] 77234 PCP - General Internal Medicine 08/09/23 documented as of this encounter
--- OUTSIDE RECORDS SUMMARY | 2025-01-07 06:34 | XMS_ITS | Encounter Summary ---
Author Organization [facility] Address [address] [place] [address] Care Team Providers Care Beef Pusher Name Role Phone Blanca Isaacs MD Primary Care Provider Vj Jackson MD Primary Care Provider [phone] Manuela Montero MD Primary Care Provider [phone] [facility], Pcp Primary Care Provider [facility] e Encounter Details Date Type Department Care Team Description 03/05/2015 Business Doc Medical Records [address] [place] [address] 93085 Abstract, Provider Social History Tobacco Use Types [...] documented as of this encounter Care Teams Beef Pusher Relationship Specialty Start Date End Date Blanca Isaacs MD PCP - General 01/17/06 07/22/21 Vj Bowden MD [address] [place] [address] 01118 PCP - General Internal Medicine 07/23/21 03/08/22 Manuela Montero MD [address] [place] [address] 01020 PCP - General Internal Medicine 03/09/22 08/08/23 Chan, Stella [address] [place] [address] 87631 PCP - General Internal Medicine 08/09/23 documented as of this encounter
--- OUTSIDE RECORDS SUMMARY | 2025-01-07 06:34 | XMS_ITS | Encounter Summary ---
Author Organization [facility] Address [address] [place] [address] Care Team Providers Care Horse Wrangler Name Role Phone Blanca Isaacs MD Primary Care Provider Vj Jackson MD Primary Care Provider [phone] Manuela Montero MD Primary Care Provider [phone] [facility], Pcp Primary Care Provider [facility] e Encounter Details Date Type Department Care Team Description 04/09/2012 Local Truck Driver Report Medical Records [address] [place] [address] 73308 Keysha Ji NP Social History Tobacco Use [...] documented as of this encounter Care Teams Horse Wrangler Relationship Specialty Start Date End Date Blanca Isaacs MD PCP - General 01/17/06 07/22/21 Vj Bowden MD [address] [place] [address] 23772 PCP - General Internal Medicine 07/23/21 03/08/22 Manuela Montero MD [address] [place] [address] 60093 PCP - General Internal Medicine 03/09/22 08/08/23 Stella Giles [address] [place] [address] 50940 PCP - General Internal Medicine 08/09/23 documented as of this encounter
--- OUTSIDE RECORDS SUMMARY | 2025-01-07 06:34 | XMS_ITS | Encounter Summary ---
Author Organization [employer] [facility] Address [address] [place] [address] Care Team Providers Care Manager Statistical Programming Name Role Phone Vj Bowden MD Primary Care Provider [phone] Manuela Montero MD Primary Care Provider [phone] [facility], Pcp Primary Care Provider Unavailabl e Reason for Visit * Reason Onset Date Comments Prior Authorization 09/28/2021 Encounter Details Date Type Department Care Team Description 09/28/2021 Telephone Adult Medicine [address] [phone] Donna Miller PA-C [address] [place] [address] [phone] Prior Authorization Social History Tobacco Use Types [...] from 11/22/21 until 11/21/24 Approval faxed to [facility] at [phone] * Telephone Encounter - Roseanne Knapp M.A. [...] prescription strength [place] p [phone] Prior Tamara Adler M.A. Regional Prior Authorizations Ext [phone] Fax: [phone] reply back to p [phone] Prior Auth isamar * Telephone Encounter - Liliya Roy - 09/28/2021 2:25 PM EDT Prior Authorization for Medication-do not complete and send this encounter unless you have the fax from the pharmacy. Is this a Cover My Meds request: Yes -- Fay Code [id number] Name of Medication Diclofenac Sodium (Voltaren) Dose [...] What Pharmacy did the fax come from: [facility] Pharmacy fax #: [phone] [employer] Information from fax: What Prescription Plan does [...] documented as of this encounter Care Teams Manager Statistical Programming Relationship Specialty Start Date End Date Vj Bowden MD [address] [place] [address] 04197 PCP - General Internal Medicine 07/23/21 03/08/22 Manuela Montero MD [address] [place] [address] 37008 PCP - General Internal Medicine 03/09/22 08/08/23 Chan, Stella [address] [place] [address] 53270 PCP - General Internal Medicine 08/09/23 documented as of this encounter
--- OUTSIDE RECORDS SUMMARY | 2025-01-07 06:34 | XMS_ITS | Encounter Summary ---
Author Organization [facility] Address [address] [place] [address] Care Team Providers Care Patient Representative Name Role Phone Blanca Isaacs MD Primary Care Provider Vj Jackson MD Primary Care Provider [phone] Manuela Montero MD Primary Care Provider [phone] [facility], Pcp Primary Care Provider Unavailabl e Reason for Visit * Reason Onset Date Comments immunizations 10/24/2017 Encounter Details Date Type Department Care Team Description 10/24/2017 Telephone Adult [address] [address] Blanca Isaacs MD immunizations Social History Tobacco Use Types Packs/Day Years [...] encounter Miscellaneous Notes * Telephone Encounter - Doreen Lynn M.A. - 10/25/2017 3:33 PM EDT Please schedule patient / thanks * Telephone Encounter - Blanca Isaacs - 10/25/2017 1:11 PM EDT ordered * Telephone Encounter - Grace Barraza M.A. - 10/25/2017 8:[address] order for Ppd so we may contact pt, * Telephone Encounter - Celine Ash - 10/24/2017 4:45 PM EDT Payor: BUTCH / Plan: PPO $0 [id number] / Product Type: PPO [id number] Patient is requesting a list of their previous immunizations NO Does the patient have an immunization form to be completed? NO Is the patient requesting immunizations to be administered? YES If yes, which immunizations are needed? testing for tuberculosis Is the patient traveling to a foreign country: NO If traveling: Which country: Date patient is leaving: documented in this encounter Plan of Treatment Not on file documented as of this encounter Results * TB INTRADERMAL TEST (10/31/2017 4:11 PM EDT) PPD Induration (PPD) 00mm 10/31/2017 4:11 PM EDT Blanca Isaacs MD LAB documented in this encounter Visit Diagnoses Diagnosis Screening examination for pulmonary tuberculosis- Primary documented in this encounter Additional Health Concerns Infection Onset Date Last Indicated Resolved Time COVID-19 11/15/2022 11/16/2022 documented as of this encounter Care Teams Patient Representative Relationship Specialty Start Date End Date Blanca Isaacs MD PCP - General 01/17/06 07/22/21 Vj Bowden MD [address] [place] [address] 35112 PCP - General Internal Medicine 07/23/21 03/08/22 Manuela Montero MD [address] [place] [address] 01020 PCP - General Internal Medicine 03/09/22 08/08/23 [facility], Pcp [address] [place] [address] 20942 PCP - General Internal Medicine 08/09/23 documented as of this encounter
--- OUTSIDE RECORDS SUMMARY | 2025-01-07 06:34 | XMS_ITS | Encounter Summary ---
Author Organization [employer] [facility] Address [address] [place] [address] Care Team Providers Care Avionics Electronics Technician Name Role Phone Blanca Isaacs MD Primary Care Provider Vj Jackson MD Primary Care Provider [phone] Manuela Montero MD Primary Care Provider [phone] [facility], Pcp Primary Care Provider [facility] e Encounter Details Date Type Department Care Team Description 02/09/2012 Business Doc Medical Records [address] [place] [address] 12696 Abstract, Provider Social History Tobacco Use Types [...] documented as of this encounter Care Teams Avionics Electronics Technician Relationship Specialty Start Date End Date Blanac Isaacs MD PCP - General 01/17/06 07/22/21 Vj Bowden MD [address] [place] [address] 01118 PCP - General Internal Medicine 07/23/21 03/08/22 Manuela Montero MD [address] [place] [address] 01020 PCP - General Internal Medicine 03/09/22 08/08/23 Chan, Stella [address] [place] [address] 45350 PCP - General Internal Medicine 08/09/23 documented as of this encounter
--- OUTSIDE RECORDS SUMMARY | 2025-01-07 06:34 | XMS_ITS | Encounter Summary ---
Author Organization [employer] [facility] Address [address] [place] [address] Care Team Providers Care Conflicts Analyst Name Role Phone Blanca Isaacs MD Primary Care Provider Vj Jackson MD Primary Care Provider [phone] Manuela Montero MD Primary Care Provider [phone] [facility], Pcp Primary Care Provider [facility] e Encounter Details Date Type Department Care Team Description 03/05/2020 [facility] Medical Records [address] [place] [address] 23849 Abstract, Provider Social History Tobacco Use Types [...] documented as of this encounter Care Teams Conflicts Analyst Relationship Specialty Start Date End Date Blanca Isaacs MD PCP - General 01/17/06 07/22/21 Vj Bowden MD [address] [place] [address] 84376 PCP - General Internal Medicine 07/23/21 03/08/22 Manuela Montero MD [address] [place] [address] 01020 PCP - General Internal Medicine 03/09/22 08/08/[address] [address] PCP - General Internal Medicine 08/09/23 documented as of this encounter
--- OUTSIDE RECORDS SUMMARY | 2025-01-07 06:34 | XMS_ITS | Encounter Summary ---
Author Organization [facility] Address [address] [place] [address] Care Team Providers Care Belt Splicer Name Role Phone Blanca Isaacs MD Primary Care Provider Vj Jackson MD Primary Care Provider [phone] Manuela Montero MD Primary Care Provider [phone] [facility], Pcp Primary Care Provider [facility] e Encounter Details Date Type Department Care Team Description 09/25/2012 Carrot Harvester Report Medical Records [address] [place] [address] 92180 Mari Morris MD Social History Tobacco Use [...] documented as of this encounter Care Teams Belt Splicer Relationship Specialty Start Date End Date Blanca Isaacs MD PCP - General 01/17/06 07/22/21 Vj Bowden MD [address] [place] [address] 63523 PCP - General Internal Medicine 07/23/21 03/08/22 Manuela Montero MD [address] [place] [address] 32484 PCP - General Internal Medicine 03/09/22 08/08/23 Stella Giles [address] [place] [address] 78024 PCP - General Internal Medicine 08/09/23 documented as of this encounter
--- OUTSIDE RECORDS SUMMARY | 2025-01-07 06:34 | XMS_ITS ---
Author Name [facility] Organization Unknown Care Team Organization Name Specialty Phone Email Start Date End Da te [facility] ACO 10/02/2024 11/25/2024 [facility] Carlos Urena Primary Care 01/25/2023 10/02/2023 [facility] Jacquelyn Alston Primary Care 07/22/202209/13 [facility] Nilson Crain Primary Care 04/20/2022 [facility] Termed, PROVIDER Primary Care 02/21/202209/13 [facility] Termed, PROVIDER Primary Care 12/21/202109/13
--- OUTSIDE RECORDS SUMMARY | 2025-01-07 06:34 | XMS_ITS | Encounter Summary ---
Author Organization [employer] [facility] Address [address] [place] [address] Care Team Providers Care Tag Clerk Name Role Phone Blanca Isaacs MD Primary Care Provider Vj Jackson MD Primary Care Provider [phone] Manuela Montero MD Primary Care Provider [phone] [facility], Pcp Primary [facility] e Encounter Details Date Type Department Care Team Description 11/12/2013 Tactical Response Group Officer Report Medical Records [address] [place] [address]447 Elham Kim Social History Tobacco Use Types Packs/Day Years [...] documented as of this encounter Care Teams Tag Clerk Relationship Specialty Start Date End Date Blanca Isaacs MD PCP - General 01/17/06 07/22/21 Vj Bowden MD [address] [place] [address] 72901 PCP - General Internal Medicine 07/23/21 03/08/22 Manuela Montero MD [address] [place] [address] 24762 PCP - General Internal Medicine 03/09/22 08/08/23 Stella Giles [address] [place] [address] 32248 PCP - General Internal Medicine 08/09/23 documented as of this encounter
--- OUTSIDE RECORDS SUMMARY | 2025-01-07 06:34 | XMS_ITS | Encounter Summary ---
Author Organization [facility] Address [address] [place] [address] Care Team Providers Care Creative Consultant Name Role Phone Blanca Isaacs MD Primary Care Provider Vj Jackson MD Primary Care Provider [phone] Manuela Montero MD Primary Care Provider [phone] [facility], Pcp Primary Care Provider [facility] e Encounter Details Date Type Department Care Team Description 05/04/2011 Oil House Attendant Report Medical Records [address] [place] [address] Matthew Ramírez Social History Tobacco Use Types [...] documented as of this encounter Care Teams Creative Consultant Relationship Specialty Start Date End Date Blanca Isaacs MD PCP - General 01/17/06 07/22/21 Vj Bowden MD [address] [place] [address] 11632 PCP - General Internal Medicine 07/23/21 03/08/22 Manuela Montero MD [address] [place] [address] 01020 PCP - General Internal Medicine 03/09/22 08/08/23 [facility], Stella [address] [place] [address] 13431 PCP - General Internal Medicine 08/09/23 documented as of this encounter
--- OUTSIDE RECORDS SUMMARY | 2025-01-07 06:34 | XMS_ITS | Encounter Summary ---
Author Organization [facility] Address [address] [place] [address] Care Team Providers Care Continuous Mining Machine Coal Miner Name Role Phone Manuela Montero MD Primary Care Provider [phone] [facility], Pcp Primary Care Provider Unavailabl e Encounter Details Date Type Department Care Team Description 04/14/2022 Business Doc Medical Records [address] [place] [address] 76452 Abstract, Provider Social History Tobacco Use Types [...] documented as of this encounter Care Teams Continuous Mining Machine Coal Miner Relationship Specialty Start Date End Date Manuela Montero MD [address] [place] [address] PCP - General Internal Medicine 03/09/22 08/08/23 [facility], Pcp [address] [place] [address] 70966 PCP - General Internal Medicine 08/09/23 documented as of this encounter
--- OUTSIDE RECORDS SUMMARY | 2025-01-07 06:34 | XMS_ITS | Encounter Summary ---
Author Organization [facility] Address [address] [place] [address] Care Team Providers Care Amusement Ride Inspector Name Role Phone Manuela Montero MD Primary Care Provider [phone] [facility], Pcp Primary Care Provider Unavailabl e Reason for Referral * EXTERNAL (Routine) - Authorized/Booked Specialty Diagnoses / Procedures Referred By Contac t Referred To Contact Dermatology Procedures REFERRAL TO DERMATOLOGY Manuela Montero MD [address] [place] [address] [facility] Referral ID Status Reason Start Date Expiration Date V isits Requested Visits Authorized [id number] Authorized/B ooked 04/20/2022 08/12/2022 1 1 Reason for Visit * Reason Onset Date Comments REFERRAL 04/15/2022 Single End Sewer Feedback 04/15/2022 Sylvester Guillen Encounter Details Date Type Department Care Team Description 04/15/2022 Telephone Adult Medicine [address] [phone] Manuela Montero MD [address] [place] [address]360 REFERRAL; Single End Sewer Feedback (Sylvester Guillen) Social History Tobacco Use [...] Payor: [place]/PPO POS / Plan: PPO $25 [employer] [id number] / Product Type: PPO [id number] Effective 11/13/08: [facility] will not retro referral requests over [...] insurance must be obtained and registered in [facility] or their referral can not be processed. [...] YES Is this visit:Initial Visit Address of Specialist:[address] [place] [address] Phone # of Specialist: [phone] Fax #: (if applicable): Does patient have [...] documented as of this encounter Care Teams Amusement Ride Inspector Relationship Specialty Start Date End Date Manuela Montero MD [address] [place] [address]20 PCP - General Internal Medicine 03/09/22 08/08/23 Stella Giles [address] [place] [address] 35850 PCP - General Internal Medicine 08/09/23 documented as of this encounter
--- OUTSIDE RECORDS SUMMARY | 2025-01-07 06:34 | XMS_ITS | Encounter Summary ---
Author Organization [facility] Address [address] [place] [address] Care Team Providers Care Lab Rep Name Role Phone Blanca Isaacs MD Primary Care Provider Vj Jackson MD Primary Care Provider [phone] Manuela Montero MD Primary Care Provider [phone] [facility], Pcp Primary Care Provider [facility] Encounter Details Date Type Department Care Team Description 10/12/2017 PNO Controlled Substance Contract Medical Records [address] [place] [id number] Abstract, Provider Social History Tobacco Use Types [...] documented as of this encounter Care Teams Lab Rep Relationship Specialty Start Date End Date Blanca Isaacs MD PCP - General 01/17/06 07/22/21 Vj Bowden MD [address] [place] [address] PCP - General Internal Medicine 07/23/21 03/08/22 Manuela Montero MD [address] [place] [address] PCP - General Internal Medicine 03/09/22 08/08/23 [facility], Stella [address] [place] [address] PCP - General Internal Medicine 08/09/23 documented as of this encounter
--- OUTSIDE RECORDS SUMMARY | 2025-01-07 06:34 | XMS_ITS | Encounter Summary ---
Author Organization [facility] Address [address] [place] [address] Care Team Providers Care Computer Aided Design Designer Name Role Phone Blanca Isaacs MD Primary Care Provider Vj Jackson MD Primary Care Provider [phone] Manuela Montero MD Primary Care Provider [phone] [facility], Pcp [facility] Encounter Details Date Type Department Care Team Description 04/16/2013 Group Leader Semiconductor Testing Report Medical Records [address] [place] [address] Mari Morris MD Social History Tobacco Use [...] documented as of this encounter Care Teams Computer Aided Design Designer Relationship Specialty Start Date End Date Blanca Isaacs MD PCP - General 01/17/06 07/22/21 Vj Bowden MD [address] [place] [address] PCP - General Internal Medicine 07/23/21 03/08/22 Manuela Montero MD [address] [place] [address]78 PCP - General Internal Medicine 03/09/22 08/08/23 Stella Giles [address] [place] [address] PCP - General Internal Medicine 08/09/23 documented as of this encounter
--- OUTSIDE RECORDS SUMMARY | 2025-01-07 06:34 | XMS_ITS | Encounter Summary ---
Author Organization [email or web address] [facility] Address [address] [place] [address] Care Team Providers Care Software Engineering Associate Manager Name Role Phone Blanca Isaacs MD Primary Care Provider Vj Jackson MD Primary Care Provider [phone] Manuela Montero MD Primary Care Provider [phone] [facility], Pcp Primary Care Provider Unavailabl e Encounter Details Date Type Department Care Team Description 02/05/2020 Hospital Medical Records [address] [place] [address] Shu Palafox MD Social History Tobacco Use [...] documented as of this encounter Care Teams Software Engineering Associate Manager Relationship Specialty Start Date End Date Blanca Isaacs MD PCP - General 01/17/06 07/22/21 Vj Bowden MD [address] [place] [address] PCP - General Internal Medicine 07/23/21 03/08/22 Manuela Montero MD [address] [place] [address] PCP - General Internal Medicine 03/09/22 08/08/[address] [address] PCP - General Internal Medicine 08/09/23 documented as of this encounter
--- OUTSIDE RECORDS SUMMARY | 2025-01-07 06:34 | XMS_ITS | Encounter Summary ---
Author Organization [employer] [facility] Address [address] [place] [address] Care Team Providers Care Tower Technician Name Role Phone Manuela Montero MD Primary Care Provider [phone] [facility], Pcp Primary Care Provider Unavailabl e Encounter Details Date Type Department Care Team Description 07/05/2022 Dot Compliance Coordinator Report Medical Records [address] [place] [address] Kory Huddleston MD Social History Tobacco Use [...] documented as of this encounter Care Teams Tower Technician Relationship Specialty Start Date End Date Manuela Montero MD [address] [place] [address] PCP - General Internal Medicine 03/09/22 08/08/23 [facility], Pcp [address] [place] [address] PCP - General Internal Medicine 08/09/23 documented as of this encounter
--- OUTSIDE RECORDS SUMMARY | 2025-01-07 06:34 | XMS_ITS | Encounter Summary ---
Author Organization [facility] Address [address] [place] [address] Care Team Providers Care Environmental Scientists Name Role Phone Manuela Montero MD Primary Care Provider [phone] [facility], Pcp Primary Care Provider Unavailabl e Encounter Details Date Type Department Care Team Description 06/16/2022 Orders Only Adult Medicine [address] [address] Manuela Montero MD [address] [place] [address] [phone] Social History Tobacco Use Types Packs/Day Years [...] documented as of this encounter Care Teams Environmental Scientists Relationship Specialty Start Date End Date Manuela Montero MD [address] [place] [address] PCP - General Internal Medicine 03/09/22 08/08/23 [facility], Stella [address] [place] [address] PCP - General Internal Medicine 08/09/23 documented as of this encounter
--- OUTSIDE RECORDS SUMMARY | 2025-01-07 06:34 | XMS_ITS | Encounter Summary ---
Author Organization [facility] [facility] Address [address] [place] [address] Care Team Providers Care Wool Washer Name Role Phone Blanca Isaacs MD Primary Care Provider Vj Jackson MD Primary Care Provider [phone] Manuela Montero MD Primary Care Provider [phone] [facility], Pcp Primary Care [facility] Reason for Visit * Reason Onset Date Comments Letter 11/22/2017 Encounter Details Date Type Department Care Team Description 11/22/2017 Telephone Adult [address] [address] Blanca Isaacs MD Letter Social History Tobacco Use Types Packs/Day Years [...] Telephone Encounter - Evaristo Flores L.P.N. - 11/28/2017 11:55 AM EDT Letter in PPU * Telephone Encounter - Blanca Isaacs - 11/27/2017 3:58 PM EDT Ok. 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 * Telephone Encounter - Rohini Heath M.A. - 11/27/2017 11:48 AM EDT Left message for pt to return call * Telephone Encounter - Kim Garcia - 11/24/2017 12:19 PM EDT Patient calling back, please call her at [phone] * Telephone Encounter - Doreen Lynn M.A. - 11/23/2017 10:13 AM EDT Message left for patient to return my call. * Telephone Encounter - Blanca Isaacs - 11/22/2017 3:58 PM EDT What is she driving? * Telephone Encounter - Marielos Barney L.P.N. 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 Please call pt when complete. [phone] (home) documented in this encounter Plan of Treatment Not on file documented as of this encounter Visit Diagnoses Not on filedocumented in this encounter Additional Health Concerns Infection Onset Date Last Indicated Resolved Time COVID-19 11/15/2022 11/16/2022 documented as of this encounter Care Teams Wool Washer Relationship Specialty Start Date End Date Blanca Isaacs MD PCP - General 01/17/06 07/22/21 Vj Bowden MD [address] [place] [address] PCP - General Internal Medicine 07/23/21 03/08/22 Manuela Montero MD [address] [place] [address] PCP - General Internal Medicine 03/09/22 08/08/23 [facility], [address] [address] PCP - General Internal Medicine 08/09/23 documented as of this encounter
--- OUTSIDE RECORDS SUMMARY | 2025-01-07 06:34 | XMS_ITS | Encounter Summary ---
Author Organization [employer] [facility] Address [address] [place] [address] Care Team Providers Care Open Developer Operator Name Role Phone Blanca Isaacs MD Primary Care Provider Vj Jackson MD Primary Care Provider [phone] Manuela Montero MD Primary Care Provider [phone] [facility], Pcp Primary Care Provider [facility] e Encounter Details Date Type Department Care Team Description 04/22/2016 Business Doc Medical Records [address] [place] [address] Abstract, Provider Social History Tobacco Use Types [...] documented as of this encounter Care Teams Open Developer Operator Relationship Specialty Start Date End Date Blanca Isaacs MD PCP - General 01/17/06 07/22/21 Vj Bowden MD [address] [place] [address] PCP - General Internal Medicine 07/23/21 03/08/22 Manuela Montero MD [address] [place] [address] PCP - General Internal Medicine 03/09/22 08/08/23 Chan, Stella [address] [place] [address] PCP - General Internal Medicine 08/09/23 documented as of this encounter
--- OUTSIDE RECORDS SUMMARY | 2025-01-07 06:35 | XMS_ITS | Encounter Summary ---
Author Organization [employer] [facility] Address [address] [place] [address] Care Team Providers Care Central Office Trouble Shooter Name Role Phone Blanca Isaacs MD Primary Care Provider Vj Jackson MD Primary Care Provider [phone] Manuela Montero MD Primary Care Provider [phone] [facility], Pcp Primary Care Provider [facility] e Encounter Details Date Type Department Care Team Description 01/27/[address] [address] Blanca Isaacs MD Social History Tobacco Use [...] documented as of this encounter Care Teams Central Office Trouble Shooter Relationship Specialty Start Date End Date Blanca Isaacs MD PCP - General 01/17/06 07/22/21 Vj Bowden MD [address] [place] [address] PCP - General Internal Medicine 07/23/21 03/08/22 Manuela Montero MD [address] [place] [address] PCP - General Internal Medicine 03/09/22 08/08/[address] [address] PCP - General Internal Medicine 08/09/23 documented as of this encounter
--- OUTSIDE RECORDS SUMMARY | 2025-01-07 06:35 | XMS_ITS | Encounter Summary ---
Author Organization [employer] [facility] Address [address] [place] [address] Care Team Providers Care Rust Proofer Name Role Phone Blanca Isaacs MD Primary Care Provider Vj Jackson MD Primary Care Provider [phone] Manuela Montero MD Primary Care Provider [phone] [facility], Pcp Primary Care Provider Unavailabl e Encounter Details Date Type Department Care Team Description 02/01/2021 [facility] Medical Records [address] [place] [address] Abstract, Provider Social History Tobacco Use Types [...] documented as of this encounter Care Teams Rust Proofer Relationship Specialty Start Date End Date Blanca Isaacs MD PCP - General 01/17/06 07/22/21 Vj Bowden MD [address] [place] [address] PCP - General Internal Medicine 07/23/21 03/08/22 Manuela Montero MD [address] [place] [address] PCP - General Internal Medicine 03/09/22 08/08/[address] [address] PCP - General Internal Medicine 08/09/23 documented as of this encounter
--- OUTSIDE RECORDS SUMMARY | 2025-01-07 06:35 | XMS_ITS | Encounter Summary ---
Author Organization [employer] [facility] Address [address] [place] [address] Care Team Providers Care Athletic Equipment Manager Name Role Phone Blanca Isaacs MD Primary Care Provider Vj Jackson MD Primary Care Provider [phone] Manuela Montero MD Primary Care Provider [phone] [facility], Pcp Primary Care Provider [facility] Encounter Details Date Type Department Care Team Description 11/14/2016 PNO Controlled Substance Contract Medical Records [address] [place] [address] Abstract, Provider Social History Tobacco Use Types [...] documented as of this encounter Care Teams Athletic Equipment Manager Relationship Specialty Start Date End Date Blanca Isaacs MD PCP - General 01/17/06 07/22/21 Vj Bowden MD [address] [place] [address] PCP - General Internal Medicine 07/23/21 03/08/22 Manuela Montero MD [address] [place] [address] PCP - General Internal Medicine 03/09/22 08/08/23 [facility], Stella [address] [place] [address] PCP - General Internal Medicine 08/09/23 documented as of this encounter
--- OUTSIDE RECORDS SUMMARY | 2025-01-07 06:35 | XMS_ITS | Encounter Summary ---
Author Organization [employer] [facility] Address [address] [place] [address] Care Team Providers Care Hearth Feeder Name Role Phone Blanca Isaacs MD Primary Care Provider Vj Jackson MD Primary Care Provider [phone] Manuela Montero MD Primary Care Provider [phone] [facility], Pcp Primary Care Provider Unavailabl e Encounter Details Date Type Department Care Team Description 01/06/2021 [facility] Medical Records [address] [place] [phone] Abstract, Provider Social History Tobacco Use Types [...] documented as of this encounter Care Teams Hearth Feeder Relationship Specialty Start Date End Date Blanca Isaacs MD PCP - General 01/17/06 07/22/21 Vj Bowden MD [address] [place] [address] PCP - General Internal Medicine 07/23/21 03/08/22 Manuela Montero MD [address] [place] [address] PCP - General Internal Medicine 03/09/22 08/08/[address] [address] PCP - General Internal Medicine 08/09/23 documented as of this encounter
--- OUTSIDE RECORDS SUMMARY | 2025-01-07 06:35 | XMS_ITS | Encounter Summary ---
Author Organization [facility] Address [address] [place] [address] Care Team Providers Care 3Rd Grade Reading Teacher Name Role Phone Blanca Isaacs MD Primary Care Provider Vj Jackson MD Primary Care Provider [phone] Manuela Montero MD Primary Care Provider [phone] [facility], Pcp Primary Care Provider Unavailabl e Reason for Visit * Reason Comments E-prescribe Rx Request Encounter Details Date Type Department Care Team Description 06/23/2021 Refill Gastroenterology - [address] [place] [phone] Esteban Armendariz PA-C E-prescribe Rx Request Social History Tobacco [...] encounter Miscellaneous Notes * Telephone Encounter - Shell Pinon M.A. - 06/23/2021 1:26 PM EDT [place] 02/25/2020 documented in this encounter Plan of Treatment Not on file documented as of this encounter Visit Diagnoses Not on filedocumented in this encounter Additional Health Concerns Infection Onset Date Last Indicated Resolved Time COVID-19 11/15/2022 11/16/2022 documented as of this encounter Care Teams 3Rd Grade Reading Teacher Relationship Specialty Start Date End Date Blanca Isaacs MD PCP - General 01/17/06 07/22/21 Vj Bowden MD [address] [place] [address] PCP - General Internal Medicine 07/23/21 03/08/22 Manuela Montero MD [address] [place] [phone] PCP - General Internal Medicine 03/09/22 08/08/23 [facility], [address] [address] PCP - General Internal Medicine 08/09/23 documented as of this encounter
--- OUTSIDE RECORDS SUMMARY | 2025-01-07 06:35 | XMS_ITS | Clinical Summary ---
Author Organization [employer] [facility] Address [address] [place] [address] Care Team Providers Care Clearance Representative Name Role Phone [facility], Pcp Primary Care Provider Unavailabl e Allergies Active Allergy Reactions Severity Noted Date Comments Aspirin Adult Low 03/28/2012 Oxycodone-Acetaminophen Swelling/Edema Medium 12/25/19 19 Acetaminophen Itching/Pruritus 08/03/2007 Salicylates Swelling/Edema 01/18/2006 eyes Rast was (-) for ASA per old record Shell Fish Anaphylaxis 01/18/2006 Medications Medication Sig Dispensed Refills Start Date End Date Status PANTY LINERS PADSIndications:U rinary incontinence Use 1 daily as directed 30 11 9 Active Probiotic Product (PROBIOMAX DAILY DF) Cap Take 1 Cap by mouth every morning (before breakfast). 30 Cap 0 0 Active Diclofenac Sodium (Voltaren) 1 % Gel Apply 4 g topically 4 times daily as needed for Other (pain). Apply up to 4 g to each affected area up to 4 times daily; maximum dose per area: 16 g/day; maximum total body dose 100 g 2 2 Active diphenhydrAMINE (Benadryl Allergy) 25 MG tablet Take 1 Tablet by mouth 2 times daily as needed for Itching. 14 Tablet 0 3 Active gabapentin (NEURONTIN) 300 MG capsule TAKE 1 CAPSULE IN THE MORNING 1 CAPSULE IN THE AFTERNOON AND 2 CAPSULES AT BEDTIME 360 Capsule 1 3 Active acetaminophen (Pain Relief Extra Strength) 500 MG tablet Take 1 Tablet by mouth 3 times daily as needed for Pain or Fever. 90 Tablet 5 3 Active omeprazole (PRILOSEC) 20 MG capsule Take 1 Capsule by mouth daily. 180 Capsule 3 3 Active albuterol (PROVENTIL) (2.5 MG/3ML) 0.083% nebulizer solution USE 1 VIAL VIA NEBULIZER EVERY 6 HOURS NEEDED FOR WHEEZE 375 mL 1 3 Active Senna-Time 8.6 MG tablet TAKE 2 TABLETS BY MOUTH 2 TIMES DAILY NEEDED (CONSTIPATION). 360 Tablet 1 3 Active ferrous sulfate 325 (65 Fe) MG tablet TAKE 1 TABLET BY MOUTH TWICE A DAY 180 Tablet 1 3 Active Meclizine HCl 12.5 MG Tab TAKE 1 TABLET BY MOUTH THREE TIMES A DAY NEEDED FOR DIZZINESS 90 Tablet 2 3 Active EPINEPHrine 0.3 MG/0.3ML Solution Auto-injector Inject 0.3 mg into the muscle as needed for Other (anaphylactic reaction). Fill with whichever brand is covered by insurance. 1 Each 0 3 Active topiramate (TOPAMAX) 100 MG tablet Take 1 Tablet by mouth 2 Times Daily. 180 Tablet 1 3 Active ALBUTEROL SULFATE 108 (90 Base) MCG/ACT Aero Soln Inhale 2 Puffs into the lungs every 6 hours as needed for Cough, Wheezing or Shortness of Breath. 8.5 g 0 3 Active ascorbic acid ([employer] Vitamin C) 500 MG tablet Take 1 Tablet by mouth 2 Times Daily. 180 Tablet 1 3 Active warfarin (COUMADIN) 5 MG tablet Take 1.5-2 Tablets by mouth daily. 180 Tablet 1 3 Active hydrochlorothiazi de (MICROZIDE) 12.5 MG capsule TAKE 1 CAPSULE BY MOUTH EVERY DAY IN THE MORNING 90 Capsule 1 4 Active montelukast (SINGULAIR) 10 MG tablet TAKE 1 TABLET BY MOUTH EVERYDAY AT BEDTIME 90 Tablet 1 4 Active budesonide-formot freddy (SYMBICORT) 160-4.5 MCG/ACT inhaler Inhale 2 Puffs into the lungs 2 times daily. Filled by pulmonology 0 Active Cholecalciferol (Vitamin D) 50 MCG (1999 UT) Tab Take 1 Tablet by mouth daily. 90 Tablet 1 4 Active fluticasone 50 MCG/ACT nasal spray 2 Sprays by Nasal route daily. 48 mL 0 4 Active loratadine (CLARITIN) 10 MG tablet Take 1 Tablet by mouth daily. 90 Tablet 1 4 Active mometasone (Elocon) 0.1 % cream Appy 1g to skin rash daily 45 g 5 4 Active hydrOXYzine (ATARAX) 25 MG tablet TAKE 1 TABLET BY MOUTH AT BEDTIME NEEDED FOR ITCHING. 30 Tablet 0 4 Active hydrocortisone (ANUSOL-HC) 2.5 % rectal cream APPLY TO AFFECTED AREA 5 TIMES A DAY NEEDED 56.7 g 4 8 02/22/19 22 Discontinued Active Problems Problem Noted Date Recurrent pulmonary emboli 03/14/2023 Personal history of COVID-19 06/29/2020 Allergic rhinitis 06/29/2020 Obesity (BMI 30-39.9) 11/30/2017 Vitamin D deficiency 11/07/2016 GERD without esophagitis 11/23/2015 Knee pain, bilateral 10/24/2012 Overview: Sees Dr. Rhodes Varicose veins of both lower extremities with pain 04/30/2012 Chronic leg pain 02/15/2012 Chest pain 08/18/2009 Overview: ECHO08/2009: Echocardiographic study is remarkable for: Normal cardiac chamber as well as EF of 55 to 60%. Normal cardiac valve morphology. Trivial mitral and tricuspid regurgitation, which are both physiologic. Normal RV systolic pressure. No pericardial effusion. 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 will need permanent Coumadin history of DVT in past 2004. epilepsy 01/18/2006 Overview: Dr. Stefania Morris Asthma 01/18/2006 Migraine 01/18/2006 Overview: IMO update History of DVT (deep vein thrombosis) Gastric pain Postprandial epigastric pain GERD (gastroesophageal reflux disease) H. pylori infection Resolved Problems Problem Noted Date Resolved Date Abnormal x-ray of extremity 09/05/201810/14 Anticoagulated on Coumadin 04/18/201310/30 Overview: DVT/Embolism Embolism and thrombosis of d eep vessels of proximal lower extremity 02/01/2011 10/30/2018 DVT of leg (deep venous thrombosis) 03/19/2009 10/30/2018 Depressive disorder, not elsewhere classified 10/30/2018 COVID-19 06/29/2020 Immunizations Name Administration Dates Next Due COVID-19 (Zhou Heiya) Pt Reported 06/11/2020, 021 Influenza (> 6 Months) 11/10/2015,2014,10/24/2012,10/26,10/19/2010,12/23/2009,11/07/2008 ,11/14/2007,11/15/2006 Influenza Vaccine-preservati ve Free-quadrivalent 4 Years 11/11/2021,12/01/2020,12/30/2019,04/03 Influenza Vaccine-quadrivale nt 4 Years Plus 12/22/2017,10/28/2016 PPD-RBMG 10/31/2017 Pneumoccoccal(Adult) Polysac charide PPSV23 04/24/2013 TD (STATE SUPPLIED FOR ADULT S AND CHILDREN) 01/20/2017 Tdap 04/13/2006 Family History Medical History Relation Name Comments Cholesterol Level Mother Hypertension Mother CA Breast Other m. aunt Relation Name Status Comments Father Alive Mother Alive Other m. aunt Alive Social History Tobacco Use Types Packs/Day Years Used Date Smoking Tobacco: Never Smokeless Tobacco: Never Tobacco Cessation:Counseling Given: Not Answered Alcohol Use Standard Drinks/Week Comments No 0 (1 standard drink = 0.6 oz pur e alcohol) Sex Assigned at Date Recorded Not on file Job Start Date Occupation Industry Not on file Not on file Not on file Last Filed Vital Signs Vital Sign Reading Time Taken Comments Blood Pressure 117/68 07/13/2023 9:48 AM EDT Pulse 58 07/13/2023 9:48 AM EDT Temperature 36.7 C (98.1 F) 05/06/2023 2:30 PM EDT Respiratory Rate 16 07/13/2023 9:48 AM EDT Oxygen Saturation 95% 05/06/2023 2:30 PM EDT Inhaled Oxygen Concentration - - Weight 89.5 kg (197 lb 6 oz) 07/13/2023 9:48 AM EDT Height 152.4 cm (5') 07/13/2023 9:48 AM EDT Body Mass Index 38.55 07/13/2023 9:48 AM EDT Plan of Treatment Health Maintenance Due Date Last Done Comments HEPATITIS C SCREENING 1988 SHINGLES VACCINE (1 of 2) 2020 DEPRESSION SCREEN 06/14/2023 06/13/2022 (Co mpleted), 11/09/2018, 10/19/2010 BMI CHECK/ADVISE 02/14/2024 07/13/2023, , 02/01/2023, Additional history exists MAMMOGRAM 04/19/2024 04/20/2023, 03/0 02/2022, 04/07/2021, Additional history exists CERVICAL CANCER SCREENING 06/29/20242021, 04/22/2016, 02/16/2012, Additional history exists Covid-19 Vaccine (3 - 2022-2 4 season) 2024 06/11/2020, 05/20/2020 INFLUENZA (#1) 2024 11/11/2021, 11/13, 12/30/2019, Additional history exists BASELINE HEALTH EXAM 40-64 02/01/202502/01, 04/06/2021, 02/22/2021, Additional history exists COLON CANCER SCREENING - [place] 07/04/20252022 DTAP/TDAP/TD (3 - Td or Tdap) 01/20/2027 01/20/2017, 04/13/2006 CHOLESTEROL SCREENING 05/03/2028 05/04/2023 , 02/02/2023, 06/15/2022, Additional history exists PNEUMOCOCCAL VACCINE FOR HIG H RISK PATIENTS (#2) 09/13/2035 04/24/2013 Additional Health Concerns Infection Onset Date Last Indicated COVID-19 11/15/2022 11/16/2022 Care Teams Clearance Representative Relationship Specialty Start Date End Date Community, Pcp PCP - General Internal Medicine 08/09/23
--- OUTSIDE RECORDS SUMMARY | 2025-01-07 06:35 | XMS_ITS | Encounter Summary ---
Author Organization [employer] [facility] Address [address] [place] [address] Care Team Providers Care Ceramics Test Engineer Name Role Phone Blanca Isaacs MD Primary Care Provider Vj Jackson MD Primary Care Provider [phone] Manuela Montero MD Primary Care Provider [phone] [facility], Pcp Primary Care Provider Unavailmulticare health e Encounter Details Date Type Department Care Team Description 03/21/2011 Underwriting Internship Report Medical Records [address] [place] [address] Franki Marie PA-C Social History Tobacco Use [...] documented as of this encounter Care Teams Ceramics Test Engineer Relationship Specialty Start Date End Date Blanca Isaacs MD PCP - General 01/17/06 07/22/21 Vj Bowden MD [address] [place] [address] PCP - General Internal Medicine 07/23/21 03/08/22 Manuela Montero MD [address] [place] [address] PCP - General Internal Medicine 03/09/22 08/08/23 Stella Giles [address] [place] [address] PCP - General Internal Medicine 08/09/23 documented as of this encounter
--- OUTSIDE RECORDS SUMMARY | 2025-01-07 06:35 | XMS_ITS | Encounter Summary ---
Author Organization [employer] [facility] Address [address] [place] [address] Care Team Providers Care Water/Wastewater Engineer Name Role Phone Blanca Isaacs MD Primary Care Provider Vj Jackson MD Primary Care Provider [phone] Manuela Montero MD Primary Care Provider [phone] [facility], Pcp Primary Care Provider [facility] Reason for Visit * Reason Onset Date Comments refill request 08/05/2019 Encounter Details Date Type Department Care Team Description 08/05/2019 Refill Adult Medicine [address] [address] Blanca Isaacs MD refill request Social History Tobacco Use Types Packs/Day Years [...] Telephone Encounter - Marielos Barney L.P.N. - 08/05/2019 1:55 PM EDT ovarian 08/01/19 Lab Results Component Value Date NA 140 07/09/2019 K 4.5 07/09/2019 CO2 26 07/09/2019 CL 107 07/09/2019 BUN 18 07/09/2019 CREAT 0.74 07/09/2019 GLU 89 07/09/2019 CA 8.8 07/09/2019 GFR > 60 07/09/2019 documented in this encounter Plan of Treatment Not on file documented as of this encounter Visit Diagnoses Not on filedocumented in this encounter Additional Health Concerns Infection Onset Date Last Indicated Resolved Time COVID-19 11/15/2022 11/16/2022 documented as of this encounter Care Teams Water/Wastewater Engineer Relationship Specialty Start Date End Date Blanca Isaacs MD PCP - General 01/17/06 07/22/21 Vj Bowden MD [address] [place] [address] PCP - General Internal Medicine 07/23/21 03/08/22 Manuela Montero MD [address] [place] [address] PCP - General Internal Medicine 03/09/22 08/08/23 [facility], [address] [address] PCP - General Internal Medicine 08/09/23 documented as of this encounter
--- OUTSIDE RECORDS SUMMARY | 2025-01-07 06:35 | XMS_ITS | Encounter Summary ---
Author Organization [facility] [facility] Address [address] [place] [address] Care Team Providers Care Bushing And Broach Operator Name Role Phone Blanca Isaacs MD Primary Care Provider Vj Jackson MD Primary Care Provider [phone] Manuela Montero MD Primary Care Provider [phone] [facility], Pcp Primary Care Provider Unavailabl e Reason for Visit * Reason Comments E-prescribe Rx Request Encounter Details Date Type Department Care Team Description 09/03/2020 Refill Adult Medicine - [address] [address] Blanca Isaacs MD E-prescribe Rx Request Social [...] Payor: JUDAH-[place]/PPO POS / Plan: PPO $0 [employer] [id number] / Product Type: PPO [id number] documented in this encounter Plan of Treatment Not on file documented as of this encounter Visit Diagnoses Not on filedocumented in this encounter Additional Health Concerns Infection Onset Date Last Indicated Resolved Time COVID-19 11/15/2022 11/16/2022 documented as of this encounter Care Teams Bushing And Broach Operator Relationship Specialty Start Date End Date Blanca Isaacs MD PCP - General 01/17/06 07/22/21 Vj Bowden MD [address] [place] [address] PCP - General Internal Medicine 07/23/21 03/08/22 Manuela Montero MD [address] [place] [address] PCP - General Internal Medicine 03/09/22 08/08/23 [facility] [address] [place] [address] PCP - General Internal Medicine 08/09/23 documented as of this encounter
--- OUTSIDE RECORDS SUMMARY | 2025-01-07 06:35 | XMS_ITS | Encounter Summary ---
Author Organization [employer] [facility] Address [address] [place] [address] Care Team Providers Care Molded Candles Wicker Name Role Phone Blanca Isaacs MD Primary Care Provider Vj Jackson MD Primary Care Provider [phone] Manuela Montero MD Primary Care Provider [phone] [facility], Pcp Primary Care Provider [facility] e Encounter Details Date Type Department Care Team Description 09/11/2013 Gas Dispatcher Report Medical Records [address] [place] [address] Petra Anderson Social History Tobacco Use Types [...] documented as of this encounter Care Teams Molded Candles Wicker Relationship Specialty Start Date End Date Blanca Isaacs MD PCP - General 01/17/06 07/22/21 Vj Bowden MD [address] [place] [address] PCP - General Internal Medicine 07/23/21 03/08/22 Manuela Montero MD [address] [place] [address] PCP - General Internal Medicine 03/09/22 08/08/23 Stella Giles [address] [place] [address] PCP - General Internal Medicine 08/09/23 documented as of this encounter
--- OUTSIDE RECORDS SUMMARY | 2025-01-07 06:35 | XMS_ITS | Encounter Summary ---
Author Organization [facility] [facility] Address [address] [place] [address] Care Team Providers Care Electronics Warfare Technician Name Role Phone Blanca Isaacs MD Primary Care Provider Vj Jackson MD Primary Care Provider [phone] Manuela Montero MD Primary Care Provider [phone] [facility], Pcp Primary Care Provider [facility] e Encounter Details Date Type Department Care Team Description 06/06/2016 Business Doc Medical Records [address] [place] [address] Abstract, Provider Social History Tobacco Use Types [...] documented as of this encounter Care Teams Electronics Warfare Technician Relationship Specialty Start Date End Date Blanca Isaacs MD PCP - General 01/17/06 07/22/21 Vj Bowden MD [address] [place] [address] PCP - General Internal Medicine 07/23/21 03/08/22 Manuela Montero MD [address] [place] [address] PCP - General Internal Medicine 03/09/22 08/08/23 Chan, Stella [address] [place] [address] PCP - General Internal Medicine 08/09/23 documented as of this encounter
--- OUTSIDE RECORDS SUMMARY | 2025-01-07 06:35 | XMS_ITS | Encounter Summary ---
Author Organization [facility] [facility] Address [address] [place] [address] Care Team Providers Care Cigarette Roller Name Role Phone Blanca Isaacs MD Primary Care Provider Vj Jackson MD Primary Care Provider [phone] Manuela Montreo MD Primary Care Provider [phone] [facility], Pcp Primary Care Provider Unavailabl e Encounter Details Date Type Department Care Team Description 04/13/2021 Business Doc Medical Records [address] [place] [id number] Abstract, Provider Social History Tobacco Use Types [...] documented as of this encounter Care Teams Cigarette Roller Relationship Specialty Start Date End Date Blanca Isaacs MD PCP - General 01/17/06 07/22/21 Vj Bowden MD [address] [place] [address] PCP - General Internal Medicine 07/23/21 03/08/22 Manuela Montero MD [address] [place] [address] PCP - General Internal Medicine 03/09/22 08/08/[address] [address] PCP - General Internal Medicine 08/09/23 documented as of this encounter
--- OUTSIDE RECORDS SUMMARY | 2025-01-07 06:35 | XMS_ITS | Encounter Summary ---
Author Organization [employer] [facility] Address [address] [place] [address] Care Team Providers Care Powder Worker Tnt Name Role Phone Blanca Isaacs MD Primary Care Provider Vj Jackson MD Primary Care Provider [phone] Manuela Montero MD Primary Care Provider [phone] [facility], Pcp Primary Care Provider [facility] Encounter Details Date Type Department Care Team Description 10/22/2013 Consulting Practice Director Report Medical Records [address] [place] [address] Mari Morris MD Social History Tobacco Use [...] documented as of this encounter Care Teams Powder Worker Tnt Relationship Specialty Start Date End Date Blanca Isaacs MD PCP - General 01/17/06 07/22/21 Vj Bowden MD [address] [place] [address] PCP - General Internal Medicine 07/23/21 03/08/22 Manuela Montero MD [address] [place] [address] PCP - General Internal Medicine 03/09/22 08/08/23 Stella Giles [address] [place] [address] PCP - General Internal Medicine 08/09/23 documented as of this encounter
--- OUTSIDE RECORDS SUMMARY | 2025-01-07 06:35 | XMS_ITS | Encounter Summary ---
Author Organization [employer] [facility] Address [address] [place] [address] Care Team Providers Care Flume Ride Operator Name Role Phone Manuela Montero MD Primary Care Provider [phone] [facility] Primary Care Provider Unavailabl e Reason for Visit * Reason Comments E-prescribe Rx Request Encounter Details Date Type Department Care Team Description 06/25/2023 Refill Adult Medicine [address] [id number] Manuela Montero MD [address] [place] [phone] E-prescribe Rx Request Social History Tobacco Use [...] documented as of this encounter Care Teams Flume Ride Operator Relationship Specialty Start Date End Date Manuela Montero MD [address] [place] [address] PCP - General Internal Medicine 03/09/22 08/08/23 [facility], [address] [address] PCP - General Internal Medicine 08/09/23 documented as of this encounter
--- OUTSIDE RECORDS SUMMARY | 2025-01-07 06:35 | XMS_ITS | Encounter Summary ---
Author Organization [employer] [facility] Address [address] [place] [address] Care Team Providers Care Community Outreach Specialist Name Role Phone Blanca Isaacs MD Primary Care Provider Vj Jackson MD Primary Care Provider [phone] Manuela Montero MD Primary Care Provider [phone] [facility], Pcp Primary Care Provider Unavailabl e Reason for Visit * Reason Onset Date Comments Faxed Order 10/21/2020 Encounter Details Date Type Department Care Team Description 10/21/2020 Telephone Adult Medicine [address] [address] Rob Ardon [address] [address] Faxed Order Social History Tobacco Use Types [...] as of this encounter Care Teams Community Outreach Specialist Relationship Specialty Start Date End Date Blanca Isaacs MD PCP - General 01/17/06 07/22/21 Vj Bowden MD [address] [place] [address] PCP - General Internal Medicine 07/23/21 03/08/22 Manuela Montero MD [address] [place] [address] PCP - General Internal Medicine 03/09/22 08/08/23 Chan, Stella [address] [place] [address] PCP - General Internal Medicine 08/09/23 documented as of this encounter
--- OUTSIDE RECORDS SUMMARY | 2025-01-07 06:35 | XMS_ITS | Encounter Summary ---
Author Organization [employer] [facility] Address [address] [place] [address] Care Team Providers Care Test Driller Name Role Phone Blanca Isaacs MD Primary Care Provider Vj Jackson MD Primary Care Provider [phone] Manuela Montero MD Primary Care Provider [phone] [facility], Pcp Primary Care Provider [facility] e Reason for Visit * Reason Comments E-prescribe Rx Request Encounter Details Date Type Department Care Team Description 01/13/2019 Refill Adult Medicine [address] [address] Blanca Isaacs MD E-prescribe Rx Request Social [...] Telephone Encounter - Sallie Alvarez M.A. - 01/14/2019 2:12 PM EST Lab Results Component Value Date NA 141 10/22/2018 K 4.0 10/22/2018 CO2 28 10/22/2018 CL 108 10/22/2018 BUN 17 10/22/2018 CREAT 0.58 10/22/2018 GLU 90 10/22/2018 CA 9.5 10/22/2018 GFR > 60 10/22/2018 * Telephone Encounter - Roseanne Acuna - 01/13/2019 2:46 PM EST Patient would like script to be: E-PRESCRIBED/FAXED TO PHARMACY WHEN WAS THE PATIENT'S LAST APPOINTMENT IN ADULT MEDICINE? 11/23/18 WHEN WAS THE LAST TIME THE PATIENT SAW THEIR PCP? 11/23/18 Does patient have an upcoming appointment? N/a (THE MEDICATION REQUESTED IS ON THE MED [...] Payor: BUTCH / Plan: PPO $0 [id number] [id number] / Product Type: PPO [id number] Insurance ID #: [id number] documented in this encounter Plan of Treatment Not on file documented as of this encounter Visit Diagnoses Not on filedocumented in this encounter Additional Health Concerns Infection Onset Date Last Indicated Resolved Time COVID-19 11/15/2022 11/16/2022 documented as of this encounter Care Teams Test Driller Relationship Specialty Start Date End Date Blanca Isaacs MD PCP - General 01/17/06 07/22/21 Vj Bowden MD [address] [place] [address] PCP - General Internal Medicine 07/23/21 03/08/22 Manuela Montero MD [address] [place] [address] PCP - General Internal Medicine 03/09/22 08/08/23 [facility], Stella [address] [place] [address] PCP - General Internal Medicine 08/09/23 documented as of this encounter
[2025-01-07 07:04] LABS: INTERNATIONAL NORM RATIO 1.8 (0.9-1.1); Prothrombin Time 21.8 SEC (11.2-13.5)
[2025-01-07] MEDS: Lidocaine 4 % Patch ADH..PATCH 1 PATCH TRANSDERMA (07:41)
[2025-01-07 07:48] VITALS: BP 114/70; PULSE 66; RESP 16; TEMP 36.6; O2SAT 100
[2025-01-07 08:38] VITALS: BP 127/68; PULSE 60; RESP 16; TEMP 36.6; O2SAT 100
== END 2025-01-07 08:49 | disposition home or self-care (01) ==
PROVIDERS: Emergency Provider Emergency Medicine; PCP Internal Medicine
DX: S13.4XXA Sprain of ligaments of cervical spine, initial encounter (principal); S29.011A Strain of muscle and tendon of front wall of thorax, initial encounter; S09.90XA Unspecified injury of head, initial encounter; V43.52XA Car driver injured in collision with other type car in traffic accident, initial encounter; Y93.9 Activity, unspecified; Y92.9 Unspecified place or not applicable; Y99.9 Unspecified external cause status; R51.9 Headache, unspecified; I10 Essential (primary) hypertension; K21.9 Gastro-esophageal reflux disease without esophagitis; Z79.01 Long term (current) use of anticoagulants; Z79.899 Other long term (current) drug therapy; Z86.711 Personal history of pulmonary embolism
CPT/HCPCS: 36415; 70450; 71045; 85610; 99284

== ENCOUNTER → 2025-01-07 06:14 | Outpatient (BNV) | payer BC, SELFPAY | PROVIDERS: Emergency Provider Emergency Medicine; PCP Internal Medicine; Visit Provider Radiology Vascular & Interventional Radiology | DX: R51.9 Headache, unspecified (principal); S09.90XA Unspecified injury of head, initial encounter; V49.40XA Driver injured in collision with unspecified motor vehicles in traffic accident, initial encounter; Z86.711 Personal history of pulmonary embolism; Z79.01 Long term (current) use of anticoagulants | CPT/HCPCS: 70450; 71045 ==